=== PATIENT | male | born 1945 | race Caucasian/White ===

== ENCOUNTER 2019-10-03 03:31 | Emergency (ER) | payer BC ==
[~2019-10-03] VITALS: Ht 185.4 cm; Wt 95.0 kg
[2019-10-03 03:38] VITALS: BP 161/87
[2019-10-03] MEDS ORDERED: ondansetron 4mg rapidly disintigrating tab PO ONE (04:00)
[2019-10-03] MEDS ORDERED: morphine 4 MG/ML inj SYRINge IM ONE (04:00)
== END 2019-10-03 04:15 | disposition home or self-care (01) ==
LOC: ER 03:32
DX: M54.5 Low back pain (principal); G89.29 Other chronic pain; Z98.890 Other specified postprocedural states
CPT/HCPCS: 96372; 99283; J2270

== ENCOUNTER 2021-04-07 14:47 | Inpatient (IN) | payer BC ==
[~2021-04-07] VITALS: Ht 185.4 cm; Wt 100.8 kg
--- NOTE | 2021-04-07 16:00 | NUR ---
Pt reports "taking a few extra Baclofen" on Thursday. Concerned b/c his urine is dark. Discussed several methods to reduce "accidentally" taking more meds than prescribed.
[2021-04-07 16:57] LABS: BASOPHILS % (AUTO) 0.2 % (0-1); EOSINOPHILS % (AUTO) 0.3 % (0-6); HEMATOCRIT 40.4 % (42.0-52.0); LYMPHOCYTES % (AUTO) 10.2 % (21-51); MEAN CORPUSCULAR HGB CONC 34.5 g/dL (33.0-36.5); MEAN CORPUSCULAR VOLUME 89.9 FL (78-98); MEAN PLATELET VOLUME 7.9 FL (7.4-10.4); MONOCYTES # (AUTO) 0.2 X10'3 (0-0.9); MONOCYTES % (AUTO) 2.5 % (2-12); NEUTROPHILS # (AUTO) 8.3 X10'3 (1.8-7.7); NEUTROPHILS % (AUTO) 86.8 % (42-75); PLATELET COUNT 125 X10'3 (140-440); RED CELL DISTRIBUTION WIDTH 15.3 % (11.5-14.5); WHITE BLOOD COUNT 9.5 X10'3 (4.5-11.0)
[2021-04-07 17:08] LABS: ALANINE AMINOTRANSFERASE 296 U/L (12-78); ALBUMIN 3.6 G/DL (3.4-5.0); ALKALINE PHOSPHATASE 46 IU/L (46-116); ANION GAP 11 (8-16); ASPARTATE AMINO TRANSFERASE 239 U/L (10-37); BILIRUBIN,TOTAL 9.9 MG/DL (0.1-1.0); BLOOD UREA NITROGEN 28 MG/DL (7-18); BUN/CREATININE RATIO 16.9 (5.4-32.0); CALCIUM 8.9 MG/DL (8.5-10.1); CHLORIDE 97 MMOL/L (99-107); CREATININE 1.66 MG/DL (0.60-1.10); GLUCOSE 123 MG/DL (70-104); SODIUM 137 MMOL/L (135-145); TOTAL CARBON DIOXIDE 28.7 MMOL/L (24-32); eGFR 40 ML/MIN
[2021-04-07 17:09] LABS: ALBUMIN/GLOBULIN RATIO 0.9 (1.1-1.5); POTASSIUM 3.2 MMOL/L (3.5-5.1); TOTAL PROTEIN 7.4 G/DL (6.4-8.2)
[2021-04-07] MEDS ORDERED: normal saline 1000ML IV soln IVB ONE (17:20)
[2021-04-07] MEDS ORDERED: potassium Cl 20 mEq SR tablet PO ONE (17:20)
[2021-04-07 17:22] LABS: ANISOCYTOSIS FEW; PLATELET ESTIMATE DECREASED; TOTAL CELLS COUNTED 100
[2021-04-07 17:23] LABS: TOXIC VACUOLATION 2+
[2021-04-07] MEDS ORDERED: tamsulosin 0.4mg capsule PO ONE (17:50)
[2021-04-07] MEDS: tamsulosin 0.4mg capsule PO SCH ×2 (17:52→17:53)
[2021-04-07] MEDS ORDERED: ondansetron/PF 4mg/2ml inj IV ONE (19:10)
[2021-04-07] MEDS ORDERED: morphine 4 MG/ML inj SYRINge IV ONE (19:10)
--- NOTE | 2021-04-07 20:27 | NUR ---
pt to room, assumed care
[2021-04-07] MEDS ORDERED: piperacillin/tazo 3.375gm/50ml 50 ML IV ONE (20:30)
[2021-04-07] MEDS ORDERED: AMLO-363 PO (20:36)
[2021-04-07] MEDS ORDERED: DULO-31 PO (20:36)
[2021-04-07] MEDS ORDERED: OLOP5DRO14 LEFTEYE (20:36)
[2021-04-07] MEDS ORDERED: OLOP5DRO14 RIGHTEYE (20:36)
[2021-04-07] MEDS ORDERED: APIX5TAB3 PO (20:36)
[2021-04-07] MEDS ORDERED: FOLI0.4T6 PO (20:36)
[2021-04-07] MEDS ORDERED: TEST75GE TOP (20:36)
[2021-04-07] MEDS ORDERED: FENT1PAT10 TD (20:36)
[2021-04-07] MEDS ORDERED: FLO0.4C PO (20:36)
[2021-04-07] MEDS ORDERED: OMEG1CAP PO (20:36)
[2021-04-07] MEDS ORDERED: FENO145T26 PO (20:36)
[2021-04-07] MEDS ORDERED: CHOL50004 PO (20:36)
[2021-04-07] MEDS ORDERED: CALC200T PO (20:36)
[2021-04-07] MEDS ORDERED: ADAL40PE SUBCUT (20:36)
[2021-04-07] MEDS ORDERED: OMEP40CA21 PO (20:36)
[2021-04-07] MEDS ORDERED: MULT-1085 PO (20:36)
[2021-04-07] MEDS ORDERED: DOXE150C2 PO (20:36)
[2021-04-07] MEDS ORDERED: METH2.5T PO (20:36)
[2021-04-07] MEDS ORDERED: ASCO-139 PO (20:36)
[2021-04-07] MEDS ORDERED: BACL20TA PO (20:36)
[2021-04-07] MEDS ORDERED: potassium Cl 40MEQ/1/2NS 520ml 520 ML IV PRN ×2 (22:25)
[2021-04-07] MEDS ORDERED: morphine/NS 1 mg/ml 50ml CADD 50 ML IV SCH (22:25)
[2021-04-07] MEDS ORDERED: CADD PCA waste documentation MC PRN (22:25)
[2021-04-07] MEDS ORDERED: naloxone 0.4 mg/ml inj IV PRN (22:25)
[2021-04-07] MEDS ORDERED: potassium Cl 20 mEq SR tablet PO PRN (22:25)
[2021-04-07] MEDS ORDERED: ondansetron/PF 4mg/2ml inj IV PRN (22:25)
[2021-04-07] MEDS: normal saline 1000ml 1,000 ML IV SCH (22:27)
--- NOTE | 2021-04-07 22:39 | NUR ---
per ERP verbal order for bladder scan. 472cc. ERP aware
[2021-04-07] MEDS ORDERED: zolpidem 5mg tablet PO ONE (22:50)
--- NOTE | 2021-04-07 23:23 | NUR ---
pt on hospital bed
[2021-04-07 23:26] LABS: LIPASE < 50 U/L (73-393)
[2021-04-08] VITALS (14 sets, daily range): BP systolic 83–141; BP diastolic 58–84
[2021-04-08] MEDS: piperacillin/tazo 3.375gm/50ml 50 ML IV SCH ×3 (04:00→21:30)
[2021-04-08 04:27] LABS: CLARITY,URINE CLEAR (Clear); COLOR,URINE YELLOW (Yellow); GLUCOSE, URINE NEGATIVE (Neg); KETONES,URINE TRACE mg/dl (Neg); LEUKOCYTE ESTERASE ,URINE NEGATIVE (Neg); NITRITES, URINE NEGATIVE (Neg); OCCULT BLOOD,URINE MODERATE (Neg); PROTEIN,URINE TRACE mg/dl (Neg)
[2021-04-08 04:35] LABS: UA COLLECTION TYPE CLN CATCH MIDSTREAM
[2021-04-08 04:36] LABS: BACTERIA,URINE FEW /HPF (Neg); RBC,URINE 0-2 /HPF (0-2); SQUAMOUS EPITHELIAL CELL,UR FEW /LPF (FEW); WBC,URINE 0-4 /HPF (0-4)
[2021-04-08] MEDS: K and/or MAG REPLACEMENT MC SCH ×2 (08:00→20:00)
[2021-04-08] MEDS ORDERED: OLOPATADINE HCL RIGHTEYE SCH (08:00)
[2021-04-08] MEDS: OLOPATADINE HCL EACHEYE SCH ×2 (08:00→20:00)
[2021-04-08 08:27] LABS: BASOPHILS % (AUTO) 0.4 % (0-1); EOSINOPHILS # (AUTO) 0.1 X10'3 (0-0.9); EOSINOPHILS % (AUTO) 0.7 % (0-6); HEMATOCRIT 36.2 % (42.0-52.0); HEMOGLOBIN 12.5 g/dl (14.0-17.9); LYMPHOCYTES % (AUTO) 13.5 % (21-51); MEAN CORPUSCULAR HEMOGLOBIN 30.7 PG (27.0-31.0); MEAN CORPUSCULAR HGB CONC 34.4 g/dL (33.0-36.5); MEAN CORPUSCULAR VOLUME 89.5 FL (78-98); MEAN PLATELET VOLUME 7.9 FL (7.4-10.4); MONOCYTES # (AUTO) 0.5 X10'3 (0-0.9); MONOCYTES % (AUTO) 7.1 % (2-12); NEUTROPHILS # (AUTO) 6.1 X10'3 (1.8-7.7); NEUTROPHILS % (AUTO) 78.3 % (42-75); PLATELET COUNT 107 X10'3 (140-440); RED BLOOD COUNT 4.05 X10'6 (4.70-6.10); RED CELL DISTRIBUTION WIDTH 15.8 % (11.5-14.5); WHITE BLOOD COUNT 7.8 X10'3 (4.5-11.0)
[2021-04-08 09:03] LABS: ALANINE AMINOTRANSFERASE 207 U/L (12-78); ALBUMIN 2.7 G/DL (3.4-5.0); ALKALINE PHOSPHATASE 39 IU/L (46-116); ANION GAP 7 (8-16); ASPARTATE AMINO TRANSFERASE 125 U/L (10-37); BILIRUBIN,TOTAL 9.1 MG/DL (0.1-1.0); BLOOD UREA NITROGEN 27 MG/DL (7-18); BUN/CREATININE RATIO 21.6 (5.4-32.0); CALCIUM 8.2 MG/DL (8.5-10.1); CHLORIDE 105 MMOL/L (99-107); CREATININE 1.25 MG/DL (0.60-1.10); GLUCOSE 111 MG/DL (70-104); SODIUM 139 MMOL/L (135-145); eGFR 56 ML/MIN
[2021-04-08] MEDS: duloxetine 30mg CAPSULE.DR PO SCH (09:20)
[2021-04-08] MEDS: fentaNYL 50MCG/HOUR patch.TD72 TD SCH (09:21)
[2021-04-08] MEDS: baclofen 10mg tablet PO SCH ×3 (09:21→20:28)
[2021-04-08] MEDS: pantoprazole 40 MG vial IV SCH (09:21)
[2021-04-08] MEDS: normal saline 1000ml 1,000 ML IV SCH ×2 (09:22→20:26)
[2021-04-08 09:25] LABS: POTASSIUM 3.6 MMOL/L (3.5-5.1); TOTAL PROTEIN 6.2 G/DL (6.4-8.2)
[2021-04-08 09:26] LABS: ALBUMIN/GLOBULIN RATIO 0.8 (1.1-1.5)
--- NOTE | 2021-04-08 10:15 | NUR ---
received report from jamel hart in er
[2021-04-08] MEDS ORDERED: MIDAZolam 1 MG/ML 5ML VIAL ONE (11:58)
[2021-04-08] MEDS ORDERED: fentaNYL/PF 50MCG/1 ML 2ML syringe ONE (11:58)
[2021-04-08] MEDS ORDERED: iohexol 300 MG/1 ML 50ml polymer ONE (11:59)
[2021-04-08] MEDS ORDERED: levoFLOXACIN-Levaquin 500mg/D5 100 ML IV ONE (11:59)
[2021-04-08] MEDS ORDERED: LIDOcaine Viscous 15ml cup ONE (11:59)
[2021-04-08] MEDS ORDERED: glucagon, human recombinant 1mg kit ONE (11:59)
[2021-04-08] MEDS ORDERED: diphenhydrAMINE 50 mg/ml inj ONE (12:01)
--- NOTE | 2021-04-08 12:19 | NUR ---
pt down at GI lab
--- NOTE | 2021-04-08 15:44 | NUR ---
about 40 mins ago pharmacist called to notify me that pt cannot have a cadd and a fentanyl patch b/c he will OD on medications, pt went down to surgery before pharmacy was able to deliver the medicine for the CADD, I had sent a page to hospitalist asking if he would like the patch or CADD, no new orders at this time, continue to monitor pt
--- NOTE | 2021-04-08 18:30 | NUR ---
Patient in room ORTHO 4015. I have received report from RADHA COY and had the opportunity to ask questions and assume patient care.
--- NOTE | 2021-04-08 18:31 | NUR ---
gave report to jamel fowler
[2021-04-08] MEDS: lactobacillus rhamnosus 10,000 MMU CELLS/CAPSULE PO SCH (20:28)
[2021-04-08] MEDS: apixaban 5mg tablet PO SCH (20:28)
[2021-04-08] MEDS: doxepin 25mg capsule PO SCH (20:28)
[2021-04-08] MEDS: tamsulosin 0.4mg capsule PO SCH (20:28)
[2021-04-08] MEDS: oxyCODONE IR 5mg (immed. release) tablet PO PRN (20:29)
[2021-04-09 02:07] VITALS: BP 112/70
[2021-04-09] MEDS: normal saline 1000ml 1,000 ML IV SCH ×3 (02:33→21:39)
[2021-04-09] MEDS: piperacillin/tazo 3.375gm/50ml 50 ML IV SCH ×3 (05:24→21:24)
[2021-04-09 06:00] VITALS: BP 137/74
[2021-04-09 06:20] LABS: BASOPHILS % (AUTO) 0.6 % (0-1); EOSINOPHILS # (AUTO) 0.1 X10'3 (0-0.9); HEMATOCRIT 35.3 % (42.0-52.0); LYMPHOCYTES # (AUTO) 1.1 X10'3 (1.1-4.8); LYMPHOCYTES % (AUTO) 21.5 % (21-51); MEAN CORPUSCULAR HEMOGLOBIN 30.1 PG (27.0-31.0); MEAN CORPUSCULAR HGB CONC 33.9 g/dL (33.0-36.5); MEAN CORPUSCULAR VOLUME 88.7 FL (78-98); MEAN PLATELET VOLUME 8.5 FL (7.4-10.4); MONOCYTES # (AUTO) 0.5 X10'3 (0-0.9); MONOCYTES % (AUTO) 9.3 % (2-12); NEUTROPHILS # (AUTO) 3.5 X10'3 (1.8-7.7); NEUTROPHILS % (AUTO) 66.6 % (42-75); PLATELET COUNT 115 X10'3 (140-440); RED BLOOD COUNT 3.98 X10'6 (4.70-6.10); RED CELL DISTRIBUTION WIDTH 15.4 % (11.5-14.5); WHITE BLOOD COUNT 5.3 X10'3 (4.5-11.0)
--- NOTE | 2021-04-09 06:29 | NUR ---
Problems reprioritized. Patient report given, questions answered & plan of care reviewed with RADHA SAXENA.
[2021-04-09 06:43] LABS: ALANINE AMINOTRANSFERASE 183 U/L (12-78); ALBUMIN 2.4 G/DL (3.4-5.0); ALKALINE PHOSPHATASE 53 IU/L (46-116); ANION GAP 8 (8-16); ASPARTATE AMINO TRANSFERASE 113 U/L (10-37); BILIRUBIN,TOTAL 8.3 MG/DL (0.1-1.0); BLOOD UREA NITROGEN 20 MG/DL (7-18); BUN/CREATININE RATIO 18.2 (5.4-32.0); CHLORIDE 105 MMOL/L (99-107); GLUCOSE 95 MG/DL (70-104); POTASSIUM 3.3 MMOL/L (3.5-5.1); SODIUM 140 MMOL/L (135-145); TOTAL CARBON DIOXIDE 26.9 MMOL/L (24-32); eGFR 65 ML/MIN
--- NOTE | 2021-04-09 06:45 | NUR ---
Patient in room ORTHO 4015. I have received report from Maricel GARCIA and had the opportunity to ask questions and assume patient care.
[2021-04-09 06:47] LABS: ALBUMIN/GLOBULIN RATIO 0.7 (1.1-1.5)
[2021-04-09] MEDS: baclofen 10mg tablet PO SCH ×3 (07:39→21:28)
[2021-04-09] MEDS: duloxetine 30mg CAPSULE.DR PO SCH (07:39)
[2021-04-09] MEDS: apixaban 5mg tablet PO SCH ×2 (07:39→21:27)
[2021-04-09] MEDS: lactobacillus rhamnosus 10,000 MMU CELLS/CAPSULE PO SCH ×2 (07:39→21:27)
[2021-04-09] MEDS: oxyCODONE IR 5mg (immed. release) tablet PO PRN ×3 (07:41→21:37)
[2021-04-09] MEDS: pantoprazole 40 MG vial IV SCH (07:41)
[2021-04-09] MEDS: OLOPATADINE HCL EACHEYE SCH ×2 (08:00→20:00)
[2021-04-09] MEDS: K and/or MAG REPLACEMENT MC SCH ×2 (08:00→20:00)
[2021-04-09 10:00] VITALS: BP 148/85
[2021-04-09] MEDS: potassium Cl 20 mEq SR tablet PO PRN ×3 (12:57→21:37)
--- NOTE | 2021-04-09 18:51 | NUR ---
Problems reprioritized. Patient report given, questions answered & plan of care reviewed with Jacqueline GARCIA.
--- NOTE | 2021-04-09 18:52 | NUR ---
Patient in room ORTHO 4015. I have received report from ODESSA GARCIA and had the opportunity to ask questions and assume patient care.
[2021-04-09 20:00] VITALS: BP 156/94
[2021-04-09] MEDS: tamsulosin 0.4mg capsule PO SCH (21:27)
[2021-04-09] MEDS: doxepin 25mg capsule PO SCH (21:28)
[2021-04-10] VITALS: BP 149/70
[2021-04-10] MEDS: oxyCODONE IR 5mg (immed. release) tablet PO PRN ×3 (03:32→12:08)
[2021-04-10] MEDS ORDERED: zolpidem 5mg tablet PO PRN ×2 (04:25→04:55)
[2021-04-10] MEDS: piperacillin/tazo 3.375gm/50ml 50 ML IV SCH ×2 (04:37→12:08)
[2021-04-10] MEDS: normal saline 1000ml 1,000 ML IV SCH (05:41)
[2021-04-10 06:00] VITALS: BP 142/76
--- NOTE | 2021-04-10 06:15 | NUR ---
Problems reprioritized. Patient report given, questions answered & plan of care reviewed with TABITHA GARCIA.
--- NOTE | 2021-04-10 06:17 | NUR ---
Patient in room ORTHO 4015. I have received report from SYLVIE MERCER RN and had the opportunity to ask questions and assume patient care.
[2021-04-10 06:40] LABS: BASOPHILS % (AUTO) 0.4 % (0-1); EOSINOPHILS # (AUTO) 0.1 X10'3 (0-0.9); EOSINOPHILS % (AUTO) 1.1 % (0-6); HEMATOCRIT 34.5 % (42.0-52.0); HEMOGLOBIN 11.7 g/dl (14.0-17.9); LYMPHOCYTES # (AUTO) 1.4 X10'3 (1.1-4.8); LYMPHOCYTES % (AUTO) 22.3 % (21-51); MEAN CORPUSCULAR HEMOGLOBIN 30.2 PG (27.0-31.0); MEAN CORPUSCULAR HGB CONC 33.8 g/dL (33.0-36.5); MEAN CORPUSCULAR VOLUME 89.5 FL (78-98); MEAN PLATELET VOLUME 8.2 FL (7.4-10.4); MONOCYTES # (AUTO) 0.7 X10'3 (0-0.9); MONOCYTES % (AUTO) 11.3 % (2-12); NEUTROPHILS # (AUTO) 4.2 X10'3 (1.8-7.7); NEUTROPHILS % (AUTO) 64.9 % (42-75); PLATELET COUNT 153 X10'3 (140-440); RED BLOOD COUNT 3.86 X10'6 (4.70-6.10); RED CELL DISTRIBUTION WIDTH 15.7 % (11.5-14.5); WHITE BLOOD COUNT 6.5 X10'3 (4.5-11.0)
[2021-04-10 07:04] LABS: ALANINE AMINOTRANSFERASE 146 U/L (12-78); ALBUMIN 2.5 G/DL (3.4-5.0); ALKALINE PHOSPHATASE 65 IU/L (46-116); ANION GAP 10 (8-16); ASPARTATE AMINO TRANSFERASE 78 U/L (10-37); BILIRUBIN,TOTAL 6.2 MG/DL (0.1-1.0); BLOOD UREA NITROGEN 15 MG/DL (7-18); CALCIUM 8.3 MG/DL (8.5-10.1); CHLORIDE 105 MMOL/L (99-107); CREATININE 1.07 MG/DL (0.60-1.10); GLUCOSE 97 MG/DL (70-104); POTASSIUM 3.2 MMOL/L (3.5-5.1); SODIUM 140 MMOL/L (135-145); eGFR 67 ML/MIN
[2021-04-10 07:11] LABS: ALBUMIN/GLOBULIN RATIO 0.7 (1.1-1.5); TOTAL PROTEIN 6.2 G/DL (6.4-8.2)
[2021-04-10] MEDS: fentaNYL 50MCG/HOUR patch.TD72 TD SCH (07:17)
[2021-04-10] MEDS: lactobacillus rhamnosus 10,000 MMU CELLS/CAPSULE PO SCH (07:17)
[2021-04-10] MEDS: duloxetine 30mg CAPSULE.DR PO SCH (07:19)
[2021-04-10] MEDS: baclofen 10mg tablet PO SCH ×2 (07:19→12:07)
[2021-04-10] MEDS: apixaban 5mg tablet PO SCH (07:19)
[2021-04-10] MEDS: OLOPATADINE HCL EACHEYE SCH ×2 (07:20→08:00)
[2021-04-10] MEDS ORDERED: pantoprazole 40mg Tablet.DR PO SCH (07:30)
[2021-04-10] MEDS: potassium Cl 20 mEq SR tablet PO PRN (08:24)
[2021-04-10] MEDS: K and/or MAG REPLACEMENT MC SCH (08:25)
[2021-04-10 10:00] VITALS: BP 146/88
--- NOTE | 2021-04-10 12:20 | NUR ---
Pt stated he will wait to take eye drops until he is home. Does not want to send eye drops to pharmacy.
[2021-04-10] MEDS ORDERED: AMOX-580 PO (14:08)
[2021-04-10] MEDS ORDERED: POTA20TA10 PO (14:08)
--- NOTE | 2021-04-10 15:29 | NUR ---
Pt discharged [facility] at 1515. Pt belongings sent with pt. Iv removed, no complications. All questions reviewed/answered. Pt discharged in stable condition with in private vehicle.
== END 2021-04-10 15:15 | disposition home or self-care (01) | DRG 444 ==
LOC: ER 14:47 → ED HOLD 22:21 → ORTHO 4S 04-08 10:25
PROVIDERS: ADMIT Internal Medicine; ATTEND Internal Medicine
PROC: 0FC98ZZ Extirpation of Matter from Common Bile Duct, Via Natural or Artificial Opening Endoscopic (ICD-10-PCS; principal; 2021-04-08)
PROC: 0F798DZ Dilation of Common Bile Duct with Intraluminal Device, Via Natural or Artificial Opening Endoscopic (ICD-10-PCS; 2021-04-08)
PROC: BF101ZZ Fluoroscopy of Bile Ducts using Low Osmolar Contrast (ICD-10-PCS; 2021-04-08)
DX: K80.30 Calculus of bile duct with cholangitis, unspecified, without obstruction (principal); N17.0 Acute kidney failure with tubular necrosis; I48.20 Chronic atrial fibrillation, unspecified; D72.825 Bandemia; E86.0 Dehydration; I10 Essential (primary) hypertension; E87.6 Hypokalemia; K75.9 Inflammatory liver disease, unspecified; R74.01 Elevation of levels of liver transaminase levels; K83.8 Other specified diseases of biliary tract; R74.8 Abnormal levels of other serum enzymes; R93.2 Abnormal findings on diagnostic imaging of liver and biliary tract; G89.29 Other chronic pain; R79.89 Other specified abnormal findings of blood chemistry; M54.9 Dorsalgia, unspecified; L40.50 Arthropathic psoriasis, unspecified; M47.896 Other spondylosis, lumbar region; Z79.01 Long term (current) use of anticoagulants; Z79.899 Other long term (current) drug therapy; Z90.49 Acquired absence of other specified parts of digestive tract
CPT/HCPCS: 36415; 43262; 43264; 43274; 74176; 76700; 80053; 81001; 83690; 85007; 85025; 87081; 99152; 99153; 99285; A4620; C1769; C9113; G0378; J1200; J1610; J1956; J2250; J2270; J2405; J2543; J3010; J7030; J7040; Q9967

== ENCOUNTER 2021-05-20 10:55 | Day surgery (SDC) | payer BC ==
[2021-05-20] VITALS (7 sets, daily range): BP systolic 126–155; BP diastolic 66–82
[~2021-05-20] VITALS: Ht 185.4 cm; Wt 97.7 kg
[~2021-05-20 10:55] MED LIST: ADAL40PE SUBCUT; AMLO-363 PO; AMOX-580 PO; APIX5TAB3 PO; ASCO-139 PO; BACL20TA PO; CALC200T PO; CHOL50004 PO; DOXE150C2 PO; DULO-31 PO; FENO145T26 PO; FENT1PAT10 TD; FLO0.4C PO; FOLI0.4T6 PO; METH2.5T PO; MULT-1085 PO; OLOP5DRO14 LEFTEYE; OLOP5DRO14 RIGHTEYE; OMEG1CAP61 PO; OMEP40CA21 PO; POTA20TA10 PO
[2021-05-20] MEDS ORDERED: fentaNYL/PF 50MCG/1 ML 2ML syringe ONE (10:59)
[2021-05-20] MEDS ORDERED: MIDAZolam 1 MG/ML 5ML VIAL ONE (10:59)
[2021-05-20] MEDS ORDERED: levoFLOXACIN-Levaquin 500mg/D5 100 ML IV ONE (11:00)
[2021-05-20] MEDS ORDERED: iohexol 300 MG/1 ML 50ml polymer ONE (11:00)
[2021-05-20] MEDS ORDERED: LIDOcaine Viscous 15ml cup ONE (11:00)
[2021-05-20] MEDS ORDERED: glucagon, human recombinant 1mg kit ONE (11:00)
[2021-05-20] MEDS ORDERED: diphenhydrAMINE 50 mg/ml inj ONE ×2 (11:00→11:27)
== END 2021-05-20 13:00 | disposition home or self-care (01) ==
LOC: GI LAB 10:55
PROVIDERS: ATTEND Internal Medicine Gastroenterology
DX: Z46.59 Encounter for fitting and adjustment of other gastrointestinal appliance and device (principal); K83.8 Other specified diseases of biliary tract; I10 Essential (primary) hypertension; Z87.891 Personal history of nicotine dependence; Z79.01 Long term (current) use of anticoagulants; Z79.899 Other long term (current) drug therapy
CPT/HCPCS: 43264; 43275; 74328; 99152; C1769; C1773; J1200; J1610; J1956; J2250; J3010; J7040; Q9967; Z7512; Z7610; 43276

== ENCOUNTER 2021-06-03 20:00 | Inpatient (IN) | payer BC ==
[~2021-06-03] VITALS: Ht 185.4 cm; Wt 97.7 kg
[~2021-06-03 20:00] MED LIST changes: +POTA-197 PO; -POTA20TA10 PO
[2021-06-03 20:51] LABS: BASOPHILS # (AUTO) 0.1 X10'3 (0-0.2); BASOPHILS % (AUTO) 0.6 % (0-1); EOSINOPHILS % (AUTO) 0.1 % (0-6); HEMOGLOBIN 10.3 g/dl (14.0-17.9); LYMPHOCYTES # (AUTO) 0.8 X10'3 (1.1-4.8); LYMPHOCYTES % (AUTO) 3.7 % (21-51); MEAN CORPUSCULAR HEMOGLOBIN 28.4 PG (27.0-31.0); MEAN CORPUSCULAR HGB CONC 32.3 g/dL (33.0-36.5); MEAN CORPUSCULAR VOLUME 88.1 FL (78-98); MEAN PLATELET VOLUME 7.6 FL (7.4-10.4); MONOCYTES # (AUTO) 1.6 X10'3 (0-0.9); MONOCYTES % (AUTO) 7.2 % (2-12); NEUTROPHILS # (AUTO) 19.2 X10'3 (1.8-7.7); NEUTROPHILS % (AUTO) 88.4 % (42-75); PLATELET COUNT 298 X10'3 (140-440); RED BLOOD COUNT 3.64 X10'6 (4.70-6.10); WHITE BLOOD COUNT 21.7 X10'3 (4.5-11.0)
[2021-06-03 21:08] LABS: ALANINE AMINOTRANSFERASE 33 U/L (12-78); ALBUMIN 2.6 G/DL (3.4-5.0); ALBUMIN/GLOBULIN RATIO 0.6 (1.1-1.5); ALKALINE PHOSPHATASE 64 IU/L (46-116); ANION GAP 13 (8-16); ASPARTATE AMINO TRANSFERASE 31 U/L (10-37); BILIRUBIN,TOTAL 1.6 MG/DL (0.1-1.0); BLOOD UREA NITROGEN 26 MG/DL (7-18); BUN/CREATININE RATIO 10.3 (5.4-32.0); CALCIUM 8.8 MG/DL (8.5-10.1); CHLORIDE 101 MMOL/L (99-107); CREATININE 2.53 MG/DL (0.60-1.10); GLUCOSE 199 MG/DL (70-104); POTASSIUM 3.6 MMOL/L (3.5-5.1); SODIUM 138 MMOL/L (135-145); TOTAL CARBON DIOXIDE 24.3 MMOL/L (24-32); TOTAL PROTEIN 6.8 G/DL (6.4-8.2); eGFR 25 ML/MIN
--- NOTE | 2021-06-03 21:30 | NUR ---
significant drop in blood pressure noted. Pt continues to be tachypnic and diaphoretic. MD notified. 1 L ns bolus ordered as well as cultures and lactic.
[2021-06-03 21:31] LABS: BANDS% (MANUAL) 16 % (0-10); NEUTROPHILS % (MANUAL) 68 % (42-75); TOTAL CELLS COUNTED 100
[2021-06-03 21:32] LABS: LYMPHOCYTES % (MANUAL) 3 % (21-51); METAMYLEOCYTES% (MANUAL) 9 % (0-0); MONOCYTES % (MANUAL) 4 % (2-12); PLATELET ESTIMATE NORMAL
[2021-06-03] MEDS ORDERED: metroNIDAZOLE-Flagyl 500mg/NS 100 ML IV STA (22:03)
[2021-06-03] MEDS ORDERED: levoFLOXACIN-Levaquin 750MG/D5 150 ML IV SCH (22:08)
[2021-06-04] MEDS ORDERED: acetaminophen 325mg tablet PO STA (00:12)
[2021-06-04] MEDS ORDERED: normal saline 1000ML IV soln IV ONE (00:15)
[2021-06-04] MEDS ORDERED: tamsulosin 0.4mg capsule PO ONE ×2 (01:55→02:20)
[2021-06-04] MEDS ORDERED: CHOL20002 PO (03:07)
[2021-06-04] MEDS ORDERED: HYDROcodone/acetaminophen 5mg/325mg tablet PO PRN (04:10)
[2021-06-04] MEDS ORDERED: magnesium 2GM in 50ml NS 50 ML IV PRN (04:10)
[2021-06-04] MEDS ORDERED: potassium Cl 20 mEq SR tablet PO PRN ×2 (04:10)
[2021-06-04] MEDS ORDERED: potassium Cl 40MEQ/1/2NS 520ml 520 ML IV PRN ×2 (04:10)
[2021-06-04] MEDS ORDERED: magnesium Cl slow-release 64mg tablet PO PRN (04:10)
[2021-06-04] MEDS ORDERED: ondansetron/PF 4mg/2ml inj IV PRN (04:10)
[2021-06-04] MEDS ORDERED: HYDROcodone/acetaminophen 10/325mg tab PO PRN (04:10)
[2021-06-04] MEDS ORDERED: magnesium 4gm in 100ml NS 100 ML IV PRN (04:10)
[2021-06-04] MEDS ORDERED: acetaminophen 325mg tablet PO PRN ×2 (04:10)
[2021-06-04] MEDS ORDERED: morphine 2 MG/ML inj. syringe IV PRN ×2 (04:10)
--- NOTE | 2021-06-04 05:38 | NUR ---
Patient in room . I have received report from Letitia-ENVIRONMENTAL LEAD and had the opportunity to ask questions and assume patient care.
[2021-06-04 06:00] VITALS: BP 106/64
--- NOTE | 2021-06-04 06:10 | NUR ---
Pt arrived on unit was able to ambulatw to bed, BP 106/64, 96% 2LNC, 91, 21. Pt asked for water connected to tele box 15
--- NOTE | 2021-06-04 06:51 | NUR ---
Problems reprioritized. Patient report given, questions answered & plan of care reviewed with Charline-RADHA.
--- NOTE | 2021-06-04 07:36 | NUR ---
Patient in room PCU 3023. I have received report from Estefania GARCIA and had the opportunity to ask questions and assume patient care.
[2021-06-04 07:37] VITALS: BP 103/60
[2021-06-04] MEDS: K and/or MAG REPLACEMENT MC SCH ×2 (08:00→20:00)
[2021-06-04] MEDS ORDERED: heparin, porcine 5000 units/ml vial SQ SCH (08:00)
[2021-06-04] MEDS: normal saline 1000ml 1,000 ML IV SCH ×3 (09:06→16:17)
[2021-06-04] MEDS: metroNIDAZOLE-Flagyl 500mg/NS 100 ML IV SCH ×2 (09:06→16:16)
[2021-06-04 09:19] LABS: BASOPHILS % (AUTO) 0.1 % (0-1); EOSINOPHILS % (AUTO) 0.2 % (0-6); HEMATOCRIT 28.7 % (42.0-52.0); HEMOGLOBIN 9.8 g/dl (14.0-17.9); LYMPHOCYTES # (AUTO) 1.3 X10'3 (1.1-4.8); LYMPHOCYTES % (AUTO) 8.3 % (21-51); MEAN CORPUSCULAR HEMOGLOBIN 29.5 PG (27.0-31.0); MEAN CORPUSCULAR VOLUME 86.8 FL (78-98); MEAN PLATELET VOLUME 7.5 FL (7.4-10.4); MONOCYTES # (AUTO) 1.2 X10'3 (0-0.9); MONOCYTES % (AUTO) 7.5 % (2-12); NEUTROPHILS # (AUTO) 13.1 X10'3 (1.8-7.7); NEUTROPHILS % (AUTO) 83.9 % (42-75); PLATELET COUNT 269 X10'3 (140-440); RED BLOOD COUNT 3.31 X10'6 (4.70-6.10); RED CELL DISTRIBUTION WIDTH 15.9 % (11.5-14.5); WHITE BLOOD COUNT 15.6 X10'3 (4.5-11.0)
[2021-06-04 09:31] LABS: ALBUMIN 2.2 G/DL (3.4-5.0); ANION GAP 9 (8-16); BLOOD UREA NITROGEN 33 MG/DL (7-18); BUN/CREATININE RATIO 15.7 (5.4-32.0); CALCIUM 7.8 MG/DL (8.5-10.1); CHLORIDE 103 MMOL/L (99-107); GLUCOSE 108 MG/DL (70-104); POTASSIUM 4.3 MMOL/L (3.5-5.1); SODIUM 138 MMOL/L (135-145); TOTAL CARBON DIOXIDE 25.8 MMOL/L (24-32); eGFR 31 ML/MIN
[2021-06-04 11:00] VITALS: BP 128/59
[2021-06-04] MEDS: folic acid 1mg tablet PO SCH (14:07)
[2021-06-04] MEDS: fenofibrate 145mg tablet PO SCH (14:07)
[2021-06-04] MEDS: tamsulosin 0.4mg capsule PO SCH (14:07)
[2021-06-04 15:00] VITALS: BP 91/52
--- NOTE | 2021-06-04 15:31 | NUR ---
PAGER ID: [phone] MESSAGE: Patient Antonio Terry room 5492T states that Edgeley's are not effective for his chronic pain. He is requesting oxycontin as an alternative. Please advise. Charline room 5176
[2021-06-04 15:53] LABS: CLARITY,URINE CLEAR (Clear); COLOR,URINE YELLOW (Yellow); GLUCOSE, URINE NEGATIVE (Neg); KETONES,URINE NEGATIVE (Neg); LEUKOCYTE ESTERASE ,URINE NEGATIVE (Neg); NITRITES, URINE NEGATIVE (Neg); OCCULT BLOOD,URINE NEGATIVE (Neg); PH,URINE 5.5 (4.8-8.0); PROTEIN,URINE NEGATIVE (Neg); UROBILINOGEN,URINE 0.2 E.U/dL (0.2-1.0)
[2021-06-04 15:55] LABS: UA COLLECTION TYPE URINAL
[2021-06-04] MEDS: fentaNYL 50MCG/HOUR patch.TD72 TD SCH (17:06)
[2021-06-04 18:00] VITALS: BP 108/47
--- NOTE | 2021-06-04 18:53 | NUR ---
Problems reprioritized. Patient report given, questions answered & plan of care reviewed with Estefania GARCIA.
[2021-06-04] MEDS: apixaban 5mg tablet PO SCH (19:36)
[2021-06-04] MEDS: oxyCODONE SR 10mg (sust. release) tab PO SCH (19:36)
[2021-06-04] MEDS: naphazoline/pheniramine eye 1 DROP BOTTLE EACHEYE SCH (19:37)
[2021-06-04] MEDS ORDERED: OLOPATADINE HCL LEFTEYE SCH (20:00)
[2021-06-04] MEDS ORDERED: temazepam 15mg capsule PO PRN (21:00)
[2021-06-04] MEDS ORDERED: tamsulosin 0.4mg capsule PO SCH (21:00)
[2021-06-04] MEDS: baclofen 10mg tablet PO SCH (21:36)
[2021-06-04] MEDS: levoFLOXACIN-Levaquin 250mg/D5 100 ML IV SCH (21:37)
[2021-06-04] MEDS: doxepin 25mg capsule PO SCH (21:37)
[2021-06-04 22:00] VITALS: BP 101/43
[2021-06-05] MEDS: metroNIDAZOLE-Flagyl 500mg/NS 100 ML IV SCH ×3 (00:12→16:59)
[2021-06-05] MEDS: normal saline 1000ml 1,000 ML IV SCH ×4 (00:17→22:35)
--- NOTE | 2021-06-05 00:48 | NUR ---
PAGER ID: [phone] MESSAGE: Robert Antonio Terry, room [facility]. Dx: ARF, Sepsis HX: afib, renal failure NKA Blood Culture gram positive cocci in clusters Rosalia COUCH 5441 Addendum: 06/05/21 at 0054 by Rosalia Vergara RN Dr denys mcclain
[2021-06-05] MEDS: vancomycin/NS 1 GM ADD-VANTAGE 250 ML IV SCH ×2 (01:50→03:02)
[2021-06-05 02:00] VITALS: BP 109/64
[2021-06-05 06:00] VITALS: BP 109/55
[2021-06-05 06:12] LABS: BASOPHILS % (AUTO) 0.1 % (0-1); EOSINOPHILS % (AUTO) 0.1 % (0-6); HEMOGLOBIN 10.9 g/dl (14.0-17.9); LYMPHOCYTES # (AUTO) 0.8 X10'3 (1.1-4.8); LYMPHOCYTES % (AUTO) 4.7 % (21-51); MEAN PLATELET VOLUME 7.7 FL (7.4-10.4); MONOCYTES # (AUTO) 0.3 X10'3 (0-0.9); MONOCYTES % (AUTO) 1.7 % (2-12); NEUTROPHILS # (AUTO) 15.6 X10'3 (1.8-7.7); NEUTROPHILS % (AUTO) 93.4 % (42-75); PLATELET COUNT 278 X10'3 (140-440); RED BLOOD COUNT 3.75 X10'6 (4.70-6.10); RED CELL DISTRIBUTION WIDTH 16.1 % (11.5-14.5); WHITE BLOOD COUNT 16.7 X10'3 (4.5-11.0)
--- NOTE | 2021-06-05 06:26 | NUR ---
Problems reprioritized. Patient report given, questions answered & plan of care reviewed with RADHA Spencer.
[2021-06-05 06:29] LABS: ALANINE AMINOTRANSFERASE 31 U/L (12-78); ALBUMIN 2.1 G/DL (3.4-5.0); ALBUMIN/GLOBULIN RATIO 0.5 (1.1-1.5); ALKALINE PHOSPHATASE 84 IU/L (46-116); ANION GAP 11 (8-16); ASPARTATE AMINO TRANSFERASE 30 U/L (10-37); BILIRUBIN,TOTAL 0.9 MG/DL (0.1-1.0); BLOOD UREA NITROGEN 34 MG/DL (7-18); BUN/CREATININE RATIO 21.4 (5.4-32.0); CALCIUM 8.3 MG/DL (8.5-10.1); CHLORIDE 102 MMOL/L (99-107); CREATININE 1.59 MG/DL (0.60-1.10); GLUCOSE 118 MG/DL (70-104); MAGNESIUM 1.6 MG/DL (1.5-2.4); POTASSIUM 4.4 MMOL/L (3.5-5.1); SODIUM 137 MMOL/L (135-145); TOTAL CARBON DIOXIDE 23.7 MMOL/L (24-32); TOTAL PROTEIN 6.3 G/DL (6.4-8.2); eGFR 42 ML/MIN
--- NOTE | 2021-06-05 06:33 | NUR ---
Patient in room PCU 3023. I have received report from Rosalia RN and Alesha RN and had the opportunity to ask questions and assume patient care.
--- NOTE | 2021-06-05 06:37 | NUR ---
[place] documentation: I have reviewed and agree with all interventions, assessments performed and documented by RADHA Lindsey.
--- NOTE | 2021-06-05 06:38 | NUR ---
[place] Medication Administration: For this medication-pass time frame, all medication were reviewed, dispensed, administered and documented per hospital policy by RADHA Lindsey.
[2021-06-05] MEDS: K and/or MAG REPLACEMENT MC SCH (08:00)
[2021-06-05] MEDS: naphazoline/pheniramine eye 1 DROP BOTTLE EACHEYE SCH (08:55)
[2021-06-05] MEDS: OMEGA-3/DHA/EPA/FISH OIL 1 EACH CAPSULE.DR PO SCH (08:55)
[2021-06-05] MEDS: cholecalciferol (vitamin D3) 1,000 unit (25mcg) tablet PO SCH (08:55)
[2021-06-05] MEDS: fenofibrate 145mg tablet PO SCH (08:55)
[2021-06-05] MEDS: calcium carbonate 500mg tablet PO SCH (08:56)
[2021-06-05] MEDS: amLODIPine 5mg tablet PO SCH (08:56)
[2021-06-05] MEDS: pantoprazole 40mg Tablet.DR PO SCH (08:57)
[2021-06-05] MEDS: duloxetine 30mg CAPSULE.DR PO SCH (08:57)
[2021-06-05] MEDS: baclofen 10mg tablet PO SCH ×3 (08:58→22:32)
[2021-06-05] MEDS: losartan 50mg tablet PO SCH (08:58)
[2021-06-05] MEDS: folic acid 1mg tablet PO SCH (08:58)
[2021-06-05] MEDS: ascorbic acid 500mg tablet PO SCH (08:59)
[2021-06-05] MEDS: HYDROchlorothiazide 25mg tablet PO SCH (08:59)
[2021-06-05] MEDS: apixaban 5mg tablet PO SCH ×2 (09:00→23:07)
[2021-06-05] MEDS: tamsulosin 0.4mg capsule PO SCH (09:00)
[2021-06-05] MEDS: oxyCODONE SR 10mg (sust. release) tab PO SCH ×2 (09:00→23:07)
[2021-06-05] MEDS: multivitamins, therapeutics tablet PO SCH (09:01)
[2021-06-05 11:00] VITALS: BP 94/45
[2021-06-05 15:00] VITALS: BP 114/74
--- NOTE | 2021-06-05 18:15 | NUR ---
Problems reprioritized. Patient report given, questions answered & plan of care reviewed with RADHA Mello.
--- NOTE | 2021-06-05 18:55 | NUR ---
Problems reprioritized. Patient report given, questions answered & plan of care reviewed with RADHA Xie.
--- NOTE | 2021-06-05 19:30 | NUR ---
Patient in room PCU 3023. I have received report from Johanna GARCIA and had the opportunity to ask questions and assume patient care.
[2021-06-05] MEDS ORDERED: oxyCODONE IR 5mg (immed. release) tablet PO PRN (22:25)
[2021-06-05] MEDS: doxepin 25mg capsule PO SCH (22:34)
[2021-06-05] MEDS: lactobacillus rhamnosus 10,000 MMU CELLS/CAPSULE PO SCH (23:07)
[2021-06-05] MEDS: levoFLOXACIN-Levaquin 250mg/D5 100 ML IV SCH (23:31)
[2021-06-06] MEDS ORDERED: vancomycin/NS 1 GM ADD-VANTAGE 250 ML X 1 DOSE IV SCH (02:00)
[2021-06-06 05:53] LABS: BASOPHILS % (AUTO) 0.2 % (0-1); EOSINOPHILS # (AUTO) 0.1 X10'3 (0-0.9); EOSINOPHILS % (AUTO) 0.5 % (0-6); HEMATOCRIT 29.7 % (42.0-52.0); HEMOGLOBIN 9.9 g/dl (14.0-17.9); LYMPHOCYTES # (AUTO) 1.3 X10'3 (1.1-4.8); LYMPHOCYTES % (AUTO) 8.2 % (21-51); MEAN CORPUSCULAR HEMOGLOBIN 28.8 PG (27.0-31.0); MEAN CORPUSCULAR HGB CONC 33.3 g/dL (33.0-36.5); MEAN CORPUSCULAR VOLUME 86.5 FL (78-98); MEAN PLATELET VOLUME 7.3 FL (7.4-10.4); MONOCYTES # (AUTO) 0.9 X10'3 (0-0.9); MONOCYTES % (AUTO) 5.6 % (2-12); NEUTROPHILS # (AUTO) 13.8 X10'3 (1.8-7.7); NEUTROPHILS % (AUTO) 85.5 % (42-75); PLATELET COUNT 281 X10'3 (140-440); RED BLOOD COUNT 3.44 X10'6 (4.70-6.10); RED CELL DISTRIBUTION WIDTH 16.3 % (11.5-14.5); WHITE BLOOD COUNT 16.1 X10'3 (4.5-11.0)
[2021-06-06 06:00] VITALS: BP 102/51
[2021-06-06] MEDS: normal saline 1000ml 1,000 ML IV SCH ×4 (06:00→22:50)
[2021-06-06 06:16] LABS: ALANINE AMINOTRANSFERASE 24 U/L (12-78); ALBUMIN 1.8 G/DL (3.4-5.0); ALBUMIN/GLOBULIN RATIO 0.5 (1.1-1.5); ALKALINE PHOSPHATASE 90 IU/L (46-116); ANION GAP 10 (8-16); ASPARTATE AMINO TRANSFERASE 23 U/L (10-37); BILIRUBIN,TOTAL 0.6 MG/DL (0.1-1.0); BLOOD UREA NITROGEN 43 MG/DL (7-18); BUN/CREATININE RATIO 24.4 (5.4-32.0); CHLORIDE 102 MMOL/L (99-107); CREATININE 1.76 MG/DL (0.60-1.10); GLUCOSE 125 MG/DL (70-104); MAGNESIUM 1.5 MG/DL (1.5-2.4); POTASSIUM 3.8 MMOL/L (3.5-5.1); SODIUM 135 MMOL/L (135-145); TOTAL CARBON DIOXIDE 23.3 MMOL/L (24-32); TOTAL PROTEIN 5.6 G/DL (6.4-8.2); eGFR 38 ML/MIN
--- NOTE | 2021-06-06 06:22 | NUR ---
Patient in room PCU 3023. I have received report from RADHA Xie and had the opportunity to ask questions and assume patient care.
--- NOTE | 2021-06-06 06:58 | NUR ---
Problems reprioritized. Patient report given, questions answered & plan of care reviewed with Johanna GARCIA.
[2021-06-06] MEDS: K and/or MAG REPLACEMENT MC SCH ×2 (07:01→20:00)
[2021-06-06] MEDS: apixaban 5mg tablet PO SCH ×2 (08:00→20:18)
[2021-06-06] MEDS: cholecalciferol (vitamin D3) 1,000 unit (25mcg) tablet PO SCH (08:02)
[2021-06-06] MEDS: ascorbic acid 500mg tablet PO SCH (08:02)
[2021-06-06] MEDS: multivitamins, therapeutics tablet PO SCH (08:02)
[2021-06-06] MEDS: amLODIPine 5mg tablet PO SCH (08:03)
[2021-06-06] MEDS: tamsulosin 0.4mg capsule PO SCH (08:04)
[2021-06-06] MEDS: pantoprazole 40mg Tablet.DR PO SCH (08:04)
[2021-06-06] MEDS: losartan 50mg tablet PO SCH (08:06)
[2021-06-06] MEDS: fenofibrate 145mg tablet PO SCH (08:06)
[2021-06-06] MEDS: oxyCODONE SR 10mg (sust. release) tab PO SCH ×2 (08:06→20:18)
[2021-06-06] MEDS: calcium carbonate 500mg tablet PO SCH (08:07)
[2021-06-06] MEDS: OMEGA-3/DHA/EPA/FISH OIL 1 EACH CAPSULE.DR PO SCH (08:08)
[2021-06-06] MEDS: folic acid 1mg tablet PO SCH (08:08)
[2021-06-06] MEDS: HYDROchlorothiazide 25mg tablet PO SCH (08:09)
[2021-06-06] MEDS: baclofen 10mg tablet PO SCH ×3 (08:09→20:18)
[2021-06-06] MEDS: duloxetine 30mg CAPSULE.DR PO SCH (08:09)
[2021-06-06] MEDS: lactobacillus rhamnosus 10,000 MMU CELLS/CAPSULE PO SCH (08:09)
[2021-06-06] MEDS: naphazoline/pheniramine eye 1 DROP BOTTLE EACHEYE SCH ×2 (08:15→20:17)
[2021-06-06] MEDS: metroNIDAZOLE-Flagyl 500mg/NS 100 ML IV SCH ×3 (08:15→23:57)
[2021-06-06] MEDS: fentaNYL 50MCG/HOUR patch.TD72 TD SCH (10:00)
[2021-06-06 11:00] VITALS: BP 103/50
[2021-06-06 15:00] VITALS: BP 134/62
[2021-06-06 18:00] VITALS: BP 119/53
[2021-06-06] MEDS: doxepin 25mg capsule PO SCH (20:17)
[2021-06-06 22:00] VITALS: BP 102/43
[2021-06-06] MEDS: levoFLOXACIN-Levaquin 250mg/D5 100 ML IV SCH (22:56)
[2021-06-07] MEDS: normal saline 1000ml 1,000 ML IV SCH ×2 (05:42→13:32)
[2021-06-07 06:00] VITALS: BP 120/65
--- NOTE | 2021-06-07 06:20 | NUR ---
Patient in room PCU 3023. I have received report from Johanna GARCIA and had the opportunity to ask questions and assume patient care.
--- NOTE | 2021-06-07 06:36 | NUR ---
Problems reprioritized. Patient report given, questions answered & plan of care reviewed with RADHA Worley.
[2021-06-07 07:22] LABS: BASOPHILS % (AUTO) 0.2 % (0-1); EOSINOPHILS # (AUTO) 0.1 X10'3 (0-0.9); EOSINOPHILS % (AUTO) 0.7 % (0-6); HEMATOCRIT 31.3 % (42.0-52.0); HEMOGLOBIN 10.2 g/dl (14.0-17.9); LYMPHOCYTES # (AUTO) 1.5 X10'3 (1.1-4.8); MEAN CORPUSCULAR HEMOGLOBIN 28.7 PG (27.0-31.0); MEAN CORPUSCULAR HGB CONC 32.6 g/dL (33.0-36.5); MEAN CORPUSCULAR VOLUME 87.8 FL (78-98); MEAN PLATELET VOLUME 7.2 FL (7.4-10.4); MONOCYTES # (AUTO) 1.1 X10'3 (0-0.9); MONOCYTES % (AUTO) 8.3 % (2-12); NEUTROPHILS # (AUTO) 10.8 X10'3 (1.8-7.7); NEUTROPHILS % (AUTO) 79.8 % (42-75); PLATELET COUNT 326 X10'3 (140-440); RED BLOOD COUNT 3.57 X10'6 (4.70-6.10); RED CELL DISTRIBUTION WIDTH 16.8 % (11.5-14.5); WHITE BLOOD COUNT 13.5 X10'3 (4.5-11.0)
[2021-06-07 08:00] LABS: ALANINE AMINOTRANSFERASE 23 U/L (12-78); ALBUMIN 1.9 G/DL (3.4-5.0); ALBUMIN/GLOBULIN RATIO 0.5 (1.1-1.5); ALKALINE PHOSPHATASE 88 IU/L (46-116); ANION GAP 12 (8-16); ASPARTATE AMINO TRANSFERASE 25 U/L (10-37); BILIRUBIN,TOTAL 0.4 MG/DL (0.1-1.0); BLOOD UREA NITROGEN 46 MG/DL (7-18); BUN/CREATININE RATIO 29.5 (5.4-32.0); CHLORIDE 108 MMOL/L (99-107); CREATININE 1.56 MG/DL (0.60-1.10); GLUCOSE 129 MG/DL (70-104); MAGNESIUM 1.7 MG/DL (1.5-2.4); SODIUM 143 MMOL/L (135-145); TOTAL CARBON DIOXIDE 23.1 MMOL/L (24-32); TOTAL PROTEIN 6.1 G/DL (6.4-8.2); eGFR 43 ML/MIN
[2021-06-07] MEDS: K and/or MAG REPLACEMENT MC SCH ×2 (08:00→20:00)
[2021-06-07 08:04] LABS: POTASSIUM 4.3 MMOL/L (3.5-5.1)
[2021-06-07] MEDS: OMEGA-3/DHA/EPA/FISH OIL 1 EACH CAPSULE.DR PO SCH (08:17)
[2021-06-07] MEDS: ascorbic acid 500mg tablet PO SCH (08:18)
[2021-06-07] MEDS: duloxetine 30mg CAPSULE.DR PO SCH (08:18)
[2021-06-07] MEDS: tamsulosin 0.4mg capsule PO SCH (08:18)
[2021-06-07] MEDS: cholecalciferol (vitamin D3) 1,000 unit (25mcg) tablet PO SCH (08:18)
[2021-06-07] MEDS: calcium carbonate 500mg tablet PO SCH (08:18)
[2021-06-07] MEDS: folic acid 1mg tablet PO SCH (08:18)
[2021-06-07] MEDS: baclofen 10mg tablet PO SCH ×3 (08:19→20:30)
[2021-06-07] MEDS: fenofibrate 145mg tablet PO SCH (08:19)
[2021-06-07] MEDS: apixaban 5mg tablet PO SCH (08:19)
[2021-06-07] MEDS: multivitamins, therapeutics tablet PO SCH (08:19)
[2021-06-07] MEDS: pantoprazole 40mg Tablet.DR PO SCH (08:19)
[2021-06-07] MEDS: oxyCODONE SR 10mg (sust. release) tab PO SCH ×2 (08:19→20:30)
[2021-06-07] MEDS: naphazoline/pheniramine eye 1 DROP BOTTLE EACHEYE SCH ×2 (08:20→20:30)
[2021-06-07] MEDS: metroNIDAZOLE-Flagyl 500mg/NS 100 ML IV SCH (08:21)
[2021-06-07] MEDS: losartan 50mg tablet PO SCH (08:30)
[2021-06-07] MEDS: amLODIPine 5mg tablet PO SCH (08:31)
[2021-06-07] MEDS: vancomycin/NS 1 GM ADD-VANTAGE 250 ML IV SCH (09:16)
[2021-06-07 11:00] VITALS: BP 124/46
[2021-06-07 15:00] VITALS: BP 120/46
--- NOTE | 2021-06-07 17:19 | NUR ---
PAGER ID: [phone] MESSAGE: Re: DanielesdrasAntonio. Room: 3023C. Pt's Savannahis is on hold for IR liver procedure on Thursday. Do you want heparin or lovenox till then? -[facility] #[phone] -Dr. Perez paged concerning Pt's blood thinners.
[2021-06-07 18:00] VITALS: BP 100/70
--- NOTE | 2021-06-07 18:20 | NUR ---
Patient in room U 3023. I have received report from KOLTON GARCIA and had the opportunity to ask questions and assume patient care. Addendum: 06/07/21 at 1918 by Corinna Villela RN Amended: Links added.
[2021-06-07] MEDS: doxepin 25mg capsule PO SCH (20:31)
[2021-06-07 23:00] VITALS: BP 139/56
--- NOTE | 2021-06-08 02:30 | NUR ---
pt c/om p0ain 8-06/21 and medicated with 2mg of morphine for this.
[2021-06-08 04:28] VITALS: BP 129/69
[2021-06-08 06:00] VITALS: BP 150/69
--- NOTE | 2021-06-08 06:30 | NUR ---
Patient in room PCU 3023. I have received report from Corinna GARCIA and had the opportunity to ask questions and assume patient care.
--- NOTE | 2021-06-08 06:30 | NUR ---
Problems reprioritized. Patient report given, questions answered & plan of care reviewed with KOLTON GARCIA. Addendum: 06/08/21 at 0631 by Corinna Villela RN Amended: Links added.
[2021-06-08] MEDS ORDERED: VANCOMYCIN LEVEL IV ONE (07:30)
[2021-06-08] MEDS: OMEGA-3/DHA/EPA/FISH OIL 1 EACH CAPSULE.DR PO SCH (07:34)
[2021-06-08] MEDS: oxyCODONE SR 10mg (sust. release) tab PO SCH ×2 (07:34→20:16)
[2021-06-08] MEDS: baclofen 10mg tablet PO SCH ×3 (07:34→20:16)
[2021-06-08] MEDS: duloxetine 30mg CAPSULE.DR PO SCH (07:35)
[2021-06-08] MEDS: folic acid 1mg tablet PO SCH (07:35)
[2021-06-08] MEDS: amLODIPine 5mg tablet PO SCH (07:35)
[2021-06-08] MEDS: calcium carbonate 500mg tablet PO SCH (07:35)
[2021-06-08] MEDS: cholecalciferol (vitamin D3) 1,000 unit (25mcg) tablet PO SCH (07:35)
[2021-06-08] MEDS: ascorbic acid 500mg tablet PO SCH (07:36)
[2021-06-08] MEDS: multivitamins, therapeutics tablet PO SCH (07:36)
[2021-06-08] MEDS: losartan 50mg tablet PO SCH (07:36)
[2021-06-08] MEDS: tamsulosin 0.4mg capsule PO SCH (07:36)
[2021-06-08] MEDS: naphazoline/pheniramine eye 1 DROP BOTTLE EACHEYE SCH ×2 (07:36→20:16)
[2021-06-08] MEDS: pantoprazole 40mg Tablet.DR PO SCH (07:36)
[2021-06-08] MEDS: fenofibrate 145mg tablet PO SCH (07:36)
[2021-06-08] MEDS: K and/or MAG REPLACEMENT MC SCH ×2 (08:00→20:00)
[2021-06-08 08:28] LABS: BASOPHILS % (AUTO) 0.2 % (0-1); EOSINOPHILS % (AUTO) 0.3 % (0-6); HEMATOCRIT 33.5 % (42.0-52.0); HEMOGLOBIN 11.1 g/dl (14.0-17.9); LYMPHOCYTES # (AUTO) 1.5 X10'3 (1.1-4.8); LYMPHOCYTES % (AUTO) 11.2 % (21-51); MEAN CORPUSCULAR HEMOGLOBIN 28.6 PG (27.0-31.0); MEAN CORPUSCULAR HGB CONC 33.3 g/dL (33.0-36.5); MEAN CORPUSCULAR VOLUME 85.9 FL (78-98); MEAN PLATELET VOLUME 7.1 FL (7.4-10.4); MONOCYTES # (AUTO) 1.4 X10'3 (0-0.9); MONOCYTES % (AUTO) 10.4 % (2-12); NEUTROPHILS # (AUTO) 10.4 X10'3 (1.8-7.7); NEUTROPHILS % (AUTO) 77.9 % (42-75); PLATELET COUNT 367 X10'3 (140-440); RED CELL DISTRIBUTION WIDTH 16.7 % (11.5-14.5); WHITE BLOOD COUNT 13.3 X10'3 (4.5-11.0)
[2021-06-08] MEDS: fentaNYL 50MCG/HOUR patch.TD72 TD SCH (08:49)
[2021-06-08 09:03] LABS: ANISOCYTOSIS 1+; MICROCYTOSIS 1+; PLATELET ESTIMATE NORMAL; POIKILOCYTOSIS FEW; POLYCHROMASIA FEW
[2021-06-08 09:28] LABS: ALANINE AMINOTRANSFERASE 18 U/L (12-78); ALBUMIN 2.2 G/DL (3.4-5.0); ALBUMIN/GLOBULIN RATIO 0.5 (1.1-1.5); ALKALINE PHOSPHATASE 87 IU/L (46-116); ANION GAP 9 (8-16); ASPARTATE AMINO TRANSFERASE 16 U/L (10-37); BILIRUBIN,TOTAL 0.9 MG/DL (0.1-1.0); BLOOD UREA NITROGEN 31 MG/DL (7-18); BUN/CREATININE RATIO 26.3 (5.4-32.0); CALCIUM 9.4 MG/DL (8.5-10.1); CHLORIDE 109 MMOL/L (99-107); CREATININE 1.18 MG/DL (0.60-1.10); GLUCOSE 126 MG/DL (70-104); MAGNESIUM 1.4 MG/DL (1.5-2.4); POTASSIUM 3.7 MMOL/L (3.5-5.1); SODIUM 145 MMOL/L (135-145); TOTAL CARBON DIOXIDE 27.1 MMOL/L (24-32); TOTAL PROTEIN 6.6 G/DL (6.4-8.2); eGFR 60 ML/MIN
[2021-06-08] MEDS ORDERED: LINA145C PO (10:14)
[2021-06-08] MEDS: vancomycin/NS 1 GM ADD-VANTAGE 250 ML IV SCH (10:36)
[2021-06-08 11:00] VITALS: BP 143/65
[2021-06-08] MEDS: CefTRIAXone 2gm/D5W 50ml BAG 50 ML IV SCH (12:28)
--- NOTE | 2021-06-08 18:00 | NUR ---
Patient in room U 3023. I have received report from Meir GARCIA and had the opportunity to ask questions and assume patient care. Addendum: 06/08/21 at 2250 by Paula Parker RN Amended: Links added.
--- NOTE | 2021-06-08 18:38 | NUR ---
Problems reprioritized. Patient report given, questions answered & plan of care reviewed with Paula GARCIA.
[2021-06-08] MEDS: doxepin 25mg capsule PO SCH (20:16)
--- NOTE | 2021-06-08 21:00 | NUR ---
Pt. awake sitting on the edge of the bed watching TV with c/o SOB but wearing o2 and sating adequately. Pt. is cooperative at this time but refusing most of the care needed. Pt. refused most of the evening medication. Educated pt. on the importance of taking prescribed medication but the pt. declined. Call light within reach. Addendum: 06/09/21 at 725 by Paula Parker RN Amended: Links added. Addendum: 06/09/21 at 726 by Paula Parker RN Wrong pt.
[2021-06-08 22:00] VITALS: BP 122/77
[2021-06-08] MEDS: normal saline 1000ml 1,000 ML IV SCH ×2 (22:33)
[2021-06-09 03:00] VITALS: BP 135/72
--- NOTE | 2021-06-09 05:00 | NUR ---
Pt. slept well with noc/o pain throughout the shift. No c/o abdominal pain or N&V this shift. Remained pt. to call nurse for assist; pt. verbalized understanding. Addendum: 06/09/21 at 0735 by Paula Parker RN Amended: Links added.
--- NOTE | 2021-06-09 05:00 | NUR ---
Please disregard fluid intake of 1800 cc; wrong pt. Addendum: 06/09/21 at 0710 by Paula Parker RN Amended: Links added.
[2021-06-09] MEDS ORDERED: magnesium 4gm in 100ml NS 100 ML IV PRN (05:20)
[2021-06-09] MEDS ORDERED: magnesium Cl slow-release 64mg tablet PO PRN (05:20)
--- NOTE | 2021-06-09 06:00 | NUR ---
Problems reprioritized. Patient report given, questions answered & plan of care reviewed with Blanca GARCIA. Addendum: 06/09/21 at 0712 by Paula Parker RN Amended: Links added.
[2021-06-09 06:49] LABS: ALANINE AMINOTRANSFERASE 19 U/L (12-78); ALBUMIN/GLOBULIN RATIO 0.5 (1.1-1.5); ALKALINE PHOSPHATASE 66 IU/L (46-116); ANION GAP 10 (8-16); ASPARTATE AMINO TRANSFERASE 16 U/L (10-37); BILIRUBIN,TOTAL 0.8 MG/DL (0.1-1.0); BLOOD UREA NITROGEN 23 MG/DL (7-18); BUN/CREATININE RATIO 25.3 (5.4-32.0); CHLORIDE 108 MMOL/L (99-107); CREATININE 0.91 MG/DL (0.60-1.10); GLUCOSE 138 MG/DL (70-104); MAGNESIUM 1.5 MG/DL (1.5-2.4); POTASSIUM 3.7 MMOL/L (3.5-5.1); SODIUM 144 MMOL/L (135-145); TOTAL CARBON DIOXIDE 26.2 MMOL/L (24-32); TOTAL PROTEIN 6.2 G/DL (6.4-8.2); eGFR 81 ML/MIN
[2021-06-09 06:52] LABS: BASOPHILS % (AUTO) 0.2 % (0-1); EOSINOPHILS # (AUTO) 0.1 X10'3 (0-0.9); EOSINOPHILS % (AUTO) 0.4 % (0-6); HEMATOCRIT 31.6 % (42.0-52.0); HEMOGLOBIN 10.4 g/dl (14.0-17.9); LYMPHOCYTES # (AUTO) 1.7 X10'3 (1.1-4.8); LYMPHOCYTES % (AUTO) 11.7 % (21-51); MEAN CORPUSCULAR HEMOGLOBIN 28.5 PG (27.0-31.0); MEAN CORPUSCULAR VOLUME 86.3 FL (78-98); MEAN PLATELET VOLUME 7.1 FL (7.4-10.4); MONOCYTES # (AUTO) 1.5 X10'3 (0-0.9); MONOCYTES % (AUTO) 10.3 % (2-12); NEUTROPHILS # (AUTO) 11.3 X10'3 (1.8-7.7); NEUTROPHILS % (AUTO) 77.4 % (42-75); PLATELET COUNT 348 X10'3 (140-440); RED BLOOD COUNT 3.66 X10'6 (4.70-6.10); RED CELL DISTRIBUTION WIDTH 16.6 % (11.5-14.5); WHITE BLOOD COUNT 14.6 X10'3 (4.5-11.0)
[2021-06-09 07:00] VITALS: BP 140/78
[2021-06-09] MEDS: K and/or MAG REPLACEMENT MC SCH ×2 (08:00→20:00)
[2021-06-09] MEDS: naphazoline/pheniramine eye 1 DROP BOTTLE EACHEYE SCH ×2 (08:44→20:00)
[2021-06-09] MEDS: pantoprazole 40mg Tablet.DR PO SCH (08:44)
[2021-06-09] MEDS: CefTRIAXone 2gm/D5W 50ml BAG 50 ML IV SCH (08:44)
[2021-06-09] MEDS: losartan 50mg tablet PO SCH (08:44)
[2021-06-09] MEDS: folic acid 1mg tablet PO SCH (08:45)
[2021-06-09] MEDS: tamsulosin 0.4mg capsule PO SCH (08:45)
[2021-06-09] MEDS: OMEGA-3/DHA/EPA/FISH OIL 1 EACH CAPSULE.DR PO SCH (08:45)
[2021-06-09] MEDS: baclofen 10mg tablet PO SCH ×3 (08:45→20:44)
[2021-06-09] MEDS: duloxetine 30mg CAPSULE.DR PO SCH (08:45)
[2021-06-09] MEDS: oxyCODONE SR 10mg (sust. release) tab PO SCH ×2 (08:46→19:56)
[2021-06-09] MEDS: calcium carbonate 500mg tablet PO SCH (08:46)
[2021-06-09] MEDS: fenofibrate 145mg tablet PO SCH (08:46)
[2021-06-09] MEDS: cholecalciferol (vitamin D3) 1,000 unit (25mcg) tablet PO SCH (08:46)
[2021-06-09] MEDS: amLODIPine 5mg tablet PO SCH (08:46)
[2021-06-09] MEDS: multivitamins, therapeutics tablet PO SCH (08:46)
[2021-06-09] MEDS: ascorbic acid 500mg tablet PO SCH (08:47)
[2021-06-09 11:00] VITALS: BP 148/91
[2021-06-09] MEDS: fentaNYL 50MCG/HOUR patch.TD72 TD SCH (11:36)
--- NOTE | 2021-06-09 11:39 | NUR ---
Initial: Pt admitted after methotrexate overdose per EMR. Pt experiencing intermittent abd pain. Abd ultrasound 06/07 showed mass on liver. Pt able to eat well, mostly 100% of meals on heart healthy diet meeting needs. No N/V/D, LBM 06/05 pt noted to be constipated. No nutritional intervention at this time, will continue to monitor. Recs: 1. Continue Heart Healthy diet as tolerated 2. Bowel care per rx 3. Weekly wts Addendum: 06/09/21 at [address] Amended: Links added.
[2021-06-09 15:00] VITALS: BP 140/66
[2021-06-09] MEDS: normal saline 1000ml 1,000 ML IV SCH (17:14)
[2021-06-09 18:00] VITALS: BP 144/89
--- NOTE | 2021-06-09 18:07 | NUR ---
Patient in room PCU 3023. I have received report from Blanca GARCIA and had the opportunity to ask questions and assume patient care.
--- NOTE | 2021-06-09 18:07 | NUR ---
Problems reprioritized. Patient report given, questions answered & plan of care reviewed with Sam Baron.
[2021-06-09] MEDS: doxepin 25mg capsule PO SCH (20:47)
[2021-06-10] VITALS (15 sets, daily range): BP systolic 119–150; BP diastolic 65–97
--- NOTE | 2021-06-10 06:08 | NUR ---
Problems reprioritized. Patient report given, questions answered & plan of care reviewed with Blanca GARCIA.
--- NOTE | 2021-06-10 06:32 | NUR ---
Patient in room PCU 3023. I have received report from Radha GARCIA and had the opportunity to ask questions and assume patient care. Patient sleeping in bed an din no acute distress.
[2021-06-10] MEDS: K and/or MAG REPLACEMENT MC SCH ×2 (08:00→20:00)
[2021-06-10] MEDS: naphazoline/pheniramine eye 1 DROP BOTTLE EACHEYE SCH ×2 (08:11→20:00)
[2021-06-10] MEDS: pantoprazole 40mg Tablet.DR PO SCH (08:11)
[2021-06-10] MEDS: CefTRIAXone 2gm/D5W 50ml BAG 50 ML IV SCH (08:11)
[2021-06-10] MEDS: OMEGA-3/DHA/EPA/FISH OIL 1 EACH CAPSULE.DR PO SCH (08:12)
[2021-06-10] MEDS: tamsulosin 0.4mg capsule PO SCH (08:12)
[2021-06-10] MEDS: duloxetine 30mg CAPSULE.DR PO SCH (08:12)
[2021-06-10] MEDS: losartan 50mg tablet PO SCH (08:12)
[2021-06-10] MEDS: oxyCODONE SR 10mg (sust. release) tab PO SCH ×2 (08:13→20:00)
[2021-06-10] MEDS: baclofen 10mg tablet PO SCH ×3 (08:13→21:00)
[2021-06-10] MEDS: amLODIPine 5mg tablet PO SCH (08:13)
[2021-06-10] MEDS: fenofibrate 145mg tablet PO SCH (08:13)
[2021-06-10] MEDS: multivitamins, therapeutics tablet PO SCH (08:13)
[2021-06-10] MEDS: calcium carbonate 500mg tablet PO SCH (08:13)
[2021-06-10] MEDS: folic acid 1mg tablet PO SCH (08:13)
[2021-06-10] MEDS: ascorbic acid 500mg tablet PO SCH (08:14)
[2021-06-10] MEDS: cholecalciferol (vitamin D3) 1,000 unit (25mcg) tablet PO SCH (08:14)
[2021-06-10] MEDS ORDERED: fentaNYL/PF 50MCG/1 ML 2ML syringe ONE ×2 (09:25→10:03)
[2021-06-10] MEDS ORDERED: midazolam 1 mg/ML 2ml injection ONE (09:25)
[2021-06-10 09:40] LABS: BASOPHILS # (AUTO) 0.1 X10'3 (0-0.2); BASOPHILS % (AUTO) 0.6 % (0-1); EOSINOPHILS # (AUTO) 0.1 X10'3 (0-0.9); EOSINOPHILS % (AUTO) 0.4 % (0-6); HEMATOCRIT 33.6 % (42.0-52.0); LYMPHOCYTES # (AUTO) 1.9 X10'3 (1.1-4.8); LYMPHOCYTES % (AUTO) 13.6 % (21-51); MEAN CORPUSCULAR HEMOGLOBIN 28.3 PG (27.0-31.0); MEAN CORPUSCULAR HGB CONC 32.6 g/dL (33.0-36.5); MEAN CORPUSCULAR VOLUME 86.6 FL (78-98); MEAN PLATELET VOLUME 7.1 FL (7.4-10.4); MONOCYTES # (AUTO) 1.1 X10'3 (0-0.9); MONOCYTES % (AUTO) 7.6 % (2-12); NEUTROPHILS # (AUTO) 10.9 X10'3 (1.8-7.7); NEUTROPHILS % (AUTO) 77.8 % (42-75); PLATELET COUNT 337 X10'3 (140-440); RED BLOOD COUNT 3.88 X10'6 (4.70-6.10); RED CELL DISTRIBUTION WIDTH 16.6 % (11.5-14.5)
[2021-06-10 09:56] LABS: CALCIUM 9.1 MG/DL (8.5-10.1); CHLORIDE 106 MMOL/L (99-107); CREATININE 0.86 MG/DL (0.60-1.10); GLUCOSE 113 MG/DL (70-104); POTASSIUM 3.7 MMOL/L (3.5-5.1); eGFR 86 ML/MIN
[2021-06-10 10:02] LABS: ANION GAP 11 (8-16); BLOOD UREA NITROGEN 18 MG/DL (7-18); BUN/CREATININE RATIO 20.9 (5.4-32.0); SODIUM 144 MMOL/L (135-145)
--- NOTE | 2021-06-10 10:02 | NUR ---
At bedside Dr. Perez gave me a verbal order to DC fluids
--- NOTE | 2021-06-10 13:42 | NUR ---
Page Sent to Dr. Perez. promotional table spacer PAGER ID: [phone] MESSAGE: [id number] Harrison. Patient c/o 07/21 pain after DAKOTA drain insertion by IR. 80 cc of pus was aspirated from abscess and sent to culture. Patient requesting pain med. No PRNs. Please advise. Blanca ext. [phone]
--- NOTE | 2021-06-10 18:57 | NUR ---
report given to narayan GARCIA . Patient sleeping in bed
[2021-06-10] MEDS: apixaban 5mg tablet PO SCH (20:00)
[2021-06-10] MEDS: doxepin 25mg capsule PO SCH (21:00)
[2021-06-11 03:00] VITALS: BP 114/78
[2021-06-11 06:14] LABS: BASOPHILS % (AUTO) 0.2 % (0-1); EOSINOPHILS % (AUTO) 0.3 % (0-6); HEMATOCRIT 30.7 % (42.0-52.0); LYMPHOCYTES # (AUTO) 1.6 X10'3 (1.1-4.8); LYMPHOCYTES % (AUTO) 13.3 % (21-51); MEAN CORPUSCULAR HEMOGLOBIN 28.2 PG (27.0-31.0); MEAN CORPUSCULAR HGB CONC 32.5 g/dL (33.0-36.5); MEAN CORPUSCULAR VOLUME 86.7 FL (78-98); MEAN PLATELET VOLUME 7.2 FL (7.4-10.4); MONOCYTES # (AUTO) 0.6 X10'3 (0-0.9); MONOCYTES % (AUTO) 4.9 % (2-12); NEUTROPHILS # (AUTO) 9.5 X10'3 (1.8-7.7); NEUTROPHILS % (AUTO) 81.3 % (42-75); PLATELET COUNT 371 X10'3 (140-440); RED BLOOD COUNT 3.54 X10'6 (4.70-6.10); RED CELL DISTRIBUTION WIDTH 16.5 % (11.5-14.5); WHITE BLOOD COUNT 11.7 X10'3 (4.5-11.0)
[2021-06-11 06:19] LABS: ALBUMIN 1.9 G/DL (3.4-5.0); ANION GAP 7 (8-16); BLOOD UREA NITROGEN 18 MG/DL (7-18); BUN/CREATININE RATIO 22.5 (5.4-32.0); CALCIUM 8.9 MG/DL (8.5-10.1); CHLORIDE 106 MMOL/L (99-107); GLUCOSE 138 MG/DL (70-104); MAGNESIUM 1.7 MG/DL (1.5-2.4); POTASSIUM 3.4 MMOL/L (3.5-5.1); SODIUM 142 MMOL/L (135-145); eGFR > 90 ML/MIN
--- NOTE | 2021-06-11 06:25 | NUR ---
Patient in room PCU 3023. I have received report from Funmilayo GARCIA and had the opportunity to ask questions and assume patient care.
[2021-06-11 07:00] VITALS: BP 131/68
[2021-06-11] MEDS: naphazoline/pheniramine eye 1 DROP BOTTLE EACHEYE SCH ×2 (08:00→19:52)
[2021-06-11] MEDS ORDERED: potassium Cl 40MEQ/1/2NS 520ml 520 ML IV PRN (08:25)
[2021-06-11] MEDS ORDERED: magnesium Cl slow-release 64mg tablet PO PRN (08:25)
[2021-06-11] MEDS ORDERED: potassium Cl 20 mEq SR tablet PO PRN (08:25)
[2021-06-11] MEDS ORDERED: magnesium 4gm in 100ml NS 100 ML IV PRN (08:25)
[2021-06-11] MEDS: apixaban 5mg tablet PO SCH ×2 (08:48→19:52)
[2021-06-11] MEDS: cholecalciferol (vitamin D3) 1,000 unit (25mcg) tablet PO SCH (08:48)
[2021-06-11] MEDS: oxyCODONE SR 10mg (sust. release) tab PO SCH ×2 (08:48→19:52)
[2021-06-11] MEDS: potassium Cl 20 mEq SR tablet PO PRN ×2 (08:48→19:59)
[2021-06-11] MEDS: calcium carbonate 500mg tablet PO SCH (08:48)
[2021-06-11] MEDS: OMEGA-3/DHA/EPA/FISH OIL 1 EACH CAPSULE.DR PO SCH (08:48)
[2021-06-11] MEDS: folic acid 1mg tablet PO SCH (08:48)
[2021-06-11] MEDS: ascorbic acid 500mg tablet PO SCH (08:49)
[2021-06-11] MEDS: pantoprazole 40mg Tablet.DR PO SCH (08:49)
[2021-06-11] MEDS: losartan 50mg tablet PO SCH (08:49)
[2021-06-11] MEDS: duloxetine 30mg CAPSULE.DR PO SCH (08:49)
[2021-06-11] MEDS: tamsulosin 0.4mg capsule PO SCH (08:49)
[2021-06-11] MEDS: CefTRIAXone 2gm/D5W 50ml BAG 50 ML IV SCH (08:50)
[2021-06-11] MEDS: K and/or MAG REPLACEMENT MC SCH ×2 (08:50→20:00)
[2021-06-11] MEDS: amLODIPine 5mg tablet PO SCH (08:50)
[2021-06-11] MEDS: baclofen 10mg tablet PO SCH ×2 (08:50→21:00)
[2021-06-11] MEDS: fenofibrate 145mg tablet PO SCH (08:51)
[2021-06-11] MEDS: multivitamins, therapeutics tablet PO SCH (08:51)
[2021-06-11] MEDS: fentaNYL 50MCG/HOUR patch.TD72 TD SCH (08:51)
[2021-06-11 11:00] VITALS: BP 122/57
--- NOTE | 2021-06-11 11:31 | NUR ---
Page to PICC [id number] Harrison. Patient needs PICC to get IV antibiotics after DC. Consent has already been signed by and patient is able to give consent Blanca [phone]
--- NOTE | 2021-06-11 13:36 | NUR ---
Page to PICC rn. [id number] Harrison. Order for PICC placed. Consent in chart and signed by . Please place PICC. thank you. Blanca [phone]
[2021-06-11 15:00] VITALS: BP 121/56
--- NOTE | 2021-06-11 15:10 | NUR ---
page to PICC [id number] Pastega. Patient is ready for PICC. Please place. Farheen [phone]
[2021-06-11 18:00] VITALS: BP 151/70
--- NOTE | 2021-06-11 18:07 | NUR ---
Problems reprioritized. Patient report given, questions answered & plan of care reviewed with Jia GARCIA.
--- NOTE | 2021-06-11 18:15 | NUR ---
Patient in room PCU 3023. I have received report from Blanca GARCIA and had the opportunity to ask questions and assume patient care.
[2021-06-11] MEDS: doxepin 25mg capsule PO SCH (19:52)
[2021-06-11 22:00] VITALS: BP 131/82
[2021-06-12 02:00] VITALS: BP 116/62
--- NOTE | 2021-06-12 06:19 | NUR ---
Problems reprioritized. Patient report given, questions answered & plan of care reviewed with Migdalia GARCIA at bedside.
--- NOTE | 2021-06-12 06:27 | NUR ---
Patient in room PCU 3023. I have received report from Jia GARCIA and had the opportunity to ask questions and assume patient care. Pt supine in bed, alert to voice, no sob. O2/NC/2LPM. safety measures in place. no s/sx acute distress.
[2021-06-12 07:00] VITALS: BP 136/82
[2021-06-12 07:20] LABS: BASOPHILS % (AUTO) 0.4 % (0-1); EOSINOPHILS # (AUTO) 0.1 X10'3 (0-0.9); EOSINOPHILS % (AUTO) 0.5 % (0-6); HEMATOCRIT 30.7 % (42.0-52.0); HEMOGLOBIN 10.2 g/dl (14.0-17.9); LYMPHOCYTES # (AUTO) 1.5 X10'3 (1.1-4.8); LYMPHOCYTES % (AUTO) 14.3 % (21-51); MEAN CORPUSCULAR HEMOGLOBIN 28.5 PG (27.0-31.0); MEAN CORPUSCULAR HGB CONC 33.3 g/dL (33.0-36.5); MEAN CORPUSCULAR VOLUME 85.6 FL (78-98); MEAN PLATELET VOLUME 6.9 FL (7.4-10.4); MONOCYTES # (AUTO) 0.6 X10'3 (0-0.9); MONOCYTES % (AUTO) 5.5 % (2-12); NEUTROPHILS # (AUTO) 8.4 X10'3 (1.8-7.7); NEUTROPHILS % (AUTO) 79.3 % (42-75); PLATELET COUNT 380 X10'3 (140-440); RED BLOOD COUNT 3.58 X10'6 (4.70-6.10); RED CELL DISTRIBUTION WIDTH 16.7 % (11.5-14.5); WHITE BLOOD COUNT 10.7 X10'3 (4.5-11.0)
[2021-06-12 07:55] LABS: ALANINE AMINOTRANSFERASE 9 U/L (12-78); ALBUMIN 1.9 G/DL (3.4-5.0); ALBUMIN/GLOBULIN RATIO 0.4 (1.1-1.5); ALKALINE PHOSPHATASE 68 IU/L (46-116); ANION GAP 9 (8-16); ASPARTATE AMINO TRANSFERASE 17 U/L (10-37); BILIRUBIN,TOTAL 0.4 MG/DL (0.1-1.0); BLOOD UREA NITROGEN 16 MG/DL (7-18); BUN/CREATININE RATIO 19.3 (5.4-32.0); CALCIUM 8.6 MG/DL (8.5-10.1); CHLORIDE 107 MMOL/L (99-107); CREATININE 0.83 MG/DL (0.60-1.10); GLUCOSE 122 MG/DL (70-104); POTASSIUM 3.9 MMOL/L (3.5-5.1); SODIUM 144 MMOL/L (135-145); TOTAL CARBON DIOXIDE 27.8 MMOL/L (24-32); TOTAL PROTEIN 6.2 G/DL (6.4-8.2); eGFR 90 ML/MIN
[2021-06-12] MEDS: K and/or MAG REPLACEMENT MC SCH (08:00)
[2021-06-12] MEDS: naphazoline/pheniramine eye 1 DROP BOTTLE EACHEYE SCH (08:00)
[2021-06-12] MEDS: apixaban 5mg tablet PO SCH (08:29)
[2021-06-12] MEDS: oxyCODONE SR 10mg (sust. release) tab PO SCH (08:29)
[2021-06-12] MEDS: multivitamins, therapeutics tablet PO SCH (08:29)
[2021-06-12] MEDS: amLODIPine 5mg tablet PO SCH (08:29)
[2021-06-12] MEDS: folic acid 1mg tablet PO SCH (08:29)
[2021-06-12] MEDS: duloxetine 30mg CAPSULE.DR PO SCH (08:29)
[2021-06-12] MEDS: tamsulosin 0.4mg capsule PO SCH (08:29)
[2021-06-12] MEDS: cholecalciferol (vitamin D3) 1,000 unit (25mcg) tablet PO SCH (08:29)
[2021-06-12] MEDS: calcium carbonate 500mg tablet PO SCH (08:30)
[2021-06-12] MEDS: OMEGA-3/DHA/EPA/FISH OIL 1 EACH CAPSULE.DR PO SCH (08:30)
[2021-06-12] MEDS: ascorbic acid 500mg tablet PO SCH (08:30)
[2021-06-12] MEDS: fenofibrate 145mg tablet PO SCH (08:30)
[2021-06-12] MEDS: losartan 50mg tablet PO SCH (08:30)
[2021-06-12] MEDS: pantoprazole 40mg Tablet.DR PO SCH (08:30)
[2021-06-12] MEDS: baclofen 10mg tablet PO SCH (08:31)
[2021-06-12] MEDS: CefTRIAXone 2gm/D5W 50ml BAG 50 ML IV SCH (08:35)
[2021-06-12] MEDS ORDERED: HYDR-3965 PO (09:50)
[2021-06-12 11:00] VITALS: BP 122/96
--- NOTE | 2021-06-12 13:07 | NUR ---
Pt stable for discharge per MD order. All discharge instructions explained, all questions answered with pt and his . new RX escripted to [facility] on [address]. no PIV. PICC flushed. gambling monitor discontinued. pt wheeled to the lobby where he loaded into private vehicle. Pt left without sob. no drainage noted from s/p DAKOTA drain site. no s/sx acute distress.
[2021-06-14] MEDS ORDERED: ADALIMUMAB SQ SCH (08:00)
== END 2021-06-12 13:07 | disposition home health service (06) | DRG 871 ==
LOC: ER 20:02 → PCU 3S 06-04 04:13
PROVIDERS: ADMIT Internal Medicine; ATTEND Internal Medicine
PROC: 0F9130Z Drainage of Right Lobe Liver with Drainage Device, Percutaneous Approach (ICD-10-PCS; principal; 2021-06-10)
PROC: 02HV33Z Insertion of Infusion Device into Superior Vena Cava, Percutaneous Approach (ICD-10-PCS; 2021-06-11)
PROC: B548ZZA Ultrasonography of Superior Vena Cava, Guidance (ICD-10-PCS; 2021-06-11)
DX: A40.8 Other streptococcal sepsis (principal); K75.0 Abscess of liver; E43 Unspecified severe protein-calorie malnutrition; N17.9 Acute kidney failure, unspecified; T45.1X1A Poisoning by antineoplastic and immunosuppressive drugs, accidental (unintentional), initial encounter; D63.8 Anemia in other chronic diseases classified elsewhere; E78.00 Pure hypercholesterolemia, unspecified; E78.5 Hyperlipidemia, unspecified; G89.29 Other chronic pain; I12.9 Hypertensive chronic kidney disease with stage 1 through stage 4 chronic kidney disease, or unspecified chronic kidney disease; E66.9 Obesity, unspecified; M19.90 Unspecified osteoarthritis, unspecified site; M54.9 Dorsalgia, unspecified; Z20.822 Contact with and (suspected) exposure to COVID-19; R16.0 Hepatomegaly, not elsewhere classified; I48.0 Paroxysmal atrial fibrillation; K57.30 Diverticulosis of large intestine without perforation or abscess without bleeding; K76.0 Fatty (change of) liver, not elsewhere classified; L40.50 Arthropathic psoriasis, unspecified; N18.30 Chronic kidney disease, stage 3 unspecified; N40.0 Benign prostatic hyperplasia without lower urinary tract symptoms; Y92.89 Other specified places as the place of occurrence of the external cause; Z79.01 Long term (current) use of anticoagulants; Z79.899 Other long term (current) drug therapy; Z90.49 Acquired absence of other specified parts of digestive tract; Z68.28 Body mass index [BMI] 28.0-28.9, adult
CPT/HCPCS: 36415; 36573; 49405; 71045; 74176; 74181; 76700; 76705; 80048; 80053; 80202; 80299; 81003; 83605; 83735; 83880; 84484; 85007; 85008; 85025; 87040; 87070; 87077; 87081; 87186; 87635; 93005; 93306; 96365; 96366; 96368; 96375; 99285; C9803; G0378; J0696; J1956; J2250; J2270; J3010; J3370; J3490; J7030

== ENCOUNTER 2021-08-12 22:35 | Inpatient (IN) | payer BC ==
[~2021-08-12] VITALS: Ht 185.4 cm; Wt 97.7 kg
[~2021-08-12 22:35] MED LIST changes: -AMOX-580 PO; +CHOL20002 PO; -CHOL50004 PO; +LINA145C PO; -POTA-197 PO
[2021-08-12] MEDS ORDERED: normal saline 1000ML IV soln IVB ONE (23:15)
[2021-08-12 23:56] LABS: BASOPHILS % (AUTO) 0.8 % (0-1); EOSINOPHILS # (AUTO) 0.1 X10'3 (0-0.9); EOSINOPHILS % (AUTO) 2.6 % (0-6); HEMATOCRIT 36.6 % (42.0-52.0); HEMOGLOBIN 12.3 g/dl (14.0-17.9); LYMPHOCYTES # (AUTO) 1.6 X10'3 (1.1-4.8); LYMPHOCYTES % (AUTO) 34.7 % (21-51); MEAN CORPUSCULAR HEMOGLOBIN 28.2 PG (27.0-31.0); MEAN CORPUSCULAR HGB CONC 33.5 g/dL (33.0-36.5); MEAN PLATELET VOLUME 7.4 FL (7.4-10.4); MONOCYTES # (AUTO) 0.4 X10'3 (0-0.9); MONOCYTES % (AUTO) 8.4 % (2-12); NEUTROPHILS # (AUTO) 2.5 X10'3 (1.8-7.7); NEUTROPHILS % (AUTO) 53.5 % (42-75); PLATELET COUNT 241 X10'3 (140-440); RED BLOOD COUNT 4.36 X10'6 (4.70-6.10); RED CELL DISTRIBUTION WIDTH 17.3 % (11.5-14.5); WHITE BLOOD COUNT 4.6 X10'3 (4.5-11.0)
[2021-08-13 00:09] LABS: ALANINE AMINOTRANSFERASE 20 U/L (12-78); ALBUMIN 3.4 G/DL (3.4-5.0); ALBUMIN/GLOBULIN RATIO 0.9 (1.1-1.5); ALKALINE PHOSPHATASE 30 IU/L (46-116); ANION GAP 9 (8-16); ASPARTATE AMINO TRANSFERASE 19 U/L (10-37); BILIRUBIN,TOTAL 0.4 MG/DL (0.1-1.0); BLOOD UREA NITROGEN 23 MG/DL (7-18); BUN/CREATININE RATIO 17.3 (5.4-32.0); CALCIUM 8.6 MG/DL (8.5-10.1); CHLORIDE 107 MMOL/L (99-107); CREATININE 1.33 MG/DL (0.60-1.10); GLUCOSE 91 MG/DL (70-104); POTASSIUM 3.8 MMOL/L (3.5-5.1); SODIUM 144 MMOL/L (135-145); TOTAL CARBON DIOXIDE 28.2 MMOL/L (24-32); eGFR 52 ML/MIN
[2021-08-13 00:13] LABS: LACTIC SEPSIS 1.2 MMOL/L (0.4-2.0)
[2021-08-13 00:18] LABS: ETHANOL < 0.010 GM/DL (0.0-0.010); TROPONIN I < 0.04 NG/ML (0.0-0.05)
[2021-08-13 00:43] LABS: CLARITY,URINE CLEAR (Clear); COLOR,URINE YELLOW (Yellow); UA COLLECTION TYPE NON-SPECIFIED
[2021-08-13 00:44] LABS: GLUCOSE, URINE NEGATIVE (Neg); KETONES,URINE NEGATIVE (Neg); LEUKOCYTE ESTERASE ,URINE NEGATIVE (Neg); NITRITES, URINE NEGATIVE (Neg); OCCULT BLOOD,URINE NEGATIVE (Neg); PROTEIN,URINE NEGATIVE (Neg); UROBILINOGEN,URINE 0.2 E.U/dL (0.2-1.0)
[2021-08-13 00:47] LABS: URINE AMPHETAMINE SCREEN NEGATIVE (Neg); URINE BARBITUATE SCREEN NEGATIVE (Neg); URINE BENZODIAZEPINES SCREEN NEGATIVE (Neg); URINE CANNABINOID SCREEN NEGATIVE (Neg); URINE COCAINE SCREEN NEGATIVE (Neg); URINE METHADONE SCREEN NEGATIVE (Neg); URINE OPIATE SCREEN NEGATIVE (Neg); URINE PHENCYCLIDINE SCREEN NEGATIVE (Neg)
[2021-08-13] MEDS ORDERED: TURM500C4 PO (00:58)
--- NOTE | 2021-08-13 01:10 | NUR ---
[facility] [phone] ()
[2021-08-13] MEDS ORDERED: lactulose 20gm/30ml cup RC ONE (02:05)
[2021-08-13] MEDS ORDERED: ondansetron/PF 4mg/2ml inj IV PRN (02:10)
[2021-08-13] MEDS: normal saline 1000ml 1,000 ML IV SCH ×2 (02:10→19:18)
--- NOTE | 2021-08-13 02:26 | NUR ---
Patient with Dr. Yoder.
--- NOTE | 2021-08-13 02:57 | NUR ---
With [employer].
[2021-08-13] MEDS: OLOPATADINE HCL EACHEYE SCH ×2 (07:34→19:19)
--- NOTE | 2021-08-13 07:37 | NUR ---
Call to [facility] to bring patient's own eye drops, states she will bring them yariel.
[2021-08-13] MEDS ORDERED: OLOPATADINE HCL LEFTEYE SCH (08:00)
[2021-08-13] MEDS: lactulose 20gm/30ml cup RC SCH ×2 (08:08→19:17)
--- NOTE | 2021-08-13 12:07 | NUR ---
relieving RN for break, pt was up to have brown soft loose bowel movement, gave him warm blanket
[2021-08-13] MEDS ORDERED: fentaNYL 50MCG/HOUR patch.TD72 TD SCH (16:19)
[2021-08-13] MEDS: HYDROchlorothiazide 12.5mg capsule PO SCH (16:30)
[2021-08-13] MEDS: losartan 50mg tablet PO SCH (16:30)
[2021-08-13] MEDS: amLODIPine 5mg tablet PO SCH (16:30)
[2021-08-13 17:15] VITALS: BP 161/63
--- NOTE | 2021-08-13 17:15 | NUR ---
Patient arrive to unit, Patient ambulated from [place] [place] to bed, patients at bedside. Patients vitals taken and patient oriented to room. patient has call light and bed in low position,
--- NOTE | 2021-08-13 18:00 | NUR ---
Problems reprioritized. Patient report given, questions answered & plan of care reviewed with Ne GARCIA.
--- NOTE | 2021-08-13 18:15 | NUR ---
Patient in room ANA 358A. I have received report from RADHA Latif and had the opportunity to ask questions and assume patient care.
[2021-08-13] MEDS ORDERED: amLODIPine 5mg tablet PO ONE (19:05)
[2021-08-13] MEDS: apixaban 5mg tablet PO SCH (19:16)
[2021-08-13 20:00] VITALS: BP 175/98
[2021-08-13] MEDS ORDERED: heparin, porcine 5000 units/ml vial SQ SCH (20:00)
[2021-08-13] MEDS: baclofen 10mg tablet PO SCH (20:15)
[2021-08-13] MEDS ORDERED: non-formulary drug (Doxepin HCl 1 CAP) PO SCH (21:00)
[2021-08-13] MEDS ORDERED: doxepin 25mg capsule PO SCH (21:00)
[2021-08-14] VITALS: BP 107/77
[2021-08-14 05:32] LABS: BASOPHILS % (AUTO) 0.5 % (0-1); EOSINOPHILS # (AUTO) 0.1 X10'3 (0-0.9); EOSINOPHILS % (AUTO) 1.5 % (0-6); HEMATOCRIT 38.7 % (42.0-52.0); HEMOGLOBIN 13.1 g/dl (14.0-17.9); LYMPHOCYTES # (AUTO) 2.4 X10'3 (1.1-4.8); LYMPHOCYTES % (AUTO) 37.2 % (21-51); MEAN CORPUSCULAR HEMOGLOBIN 28.1 PG (27.0-31.0); MEAN CORPUSCULAR HGB CONC 33.7 g/dL (33.0-36.5); MEAN CORPUSCULAR VOLUME 83.4 FL (78-98); MEAN PLATELET VOLUME 7.1 FL (7.4-10.4); MONOCYTES # (AUTO) 0.6 X10'3 (0-0.9); MONOCYTES % (AUTO) 8.6 % (2-12); NEUTROPHILS # (AUTO) 3.3 X10'3 (1.8-7.7); NEUTROPHILS % (AUTO) 52.2 % (42-75); PLATELET COUNT 266 X10'3 (140-440); RED BLOOD COUNT 4.65 X10'6 (4.70-6.10); RED CELL DISTRIBUTION WIDTH 17.3 % (11.5-14.5); WHITE BLOOD COUNT 6.4 X10'3 (4.5-11.0)
[2021-08-14 05:47] LABS: ALANINE AMINOTRANSFERASE 22 U/L (12-78); ALBUMIN 3.8 G/DL (3.4-5.0); ALKALINE PHOSPHATASE 37 IU/L (46-116); ANION GAP 9 (8-16); ASPARTATE AMINO TRANSFERASE 23 U/L (10-37); BILIRUBIN,TOTAL 0.7 MG/DL (0.1-1.0); BLOOD UREA NITROGEN 16 MG/DL (7-18); BUN/CREATININE RATIO 14.8 (5.4-32.0); CALCIUM 9.2 MG/DL (8.5-10.1); CHLORIDE 106 MMOL/L (99-107); CREATININE 1.08 MG/DL (0.60-1.10); GLUCOSE 94 MG/DL (70-104); POTASSIUM 3.2 MMOL/L (3.5-5.1); SODIUM 143 MMOL/L (135-145); TOTAL CARBON DIOXIDE 28.5 MMOL/L (24-32); TOTAL PROTEIN 7.6 G/DL (6.4-8.2); eGFR 66 ML/MIN
--- NOTE | 2021-08-14 06:18 | NUR ---
Problems reprioritized. Patient report given, questions answered & plan of care reviewed with RADHA Perales.
[2021-08-14] MEDS ORDERED: tamsulosin 0.4mg capsule PO SCH (08:00)
[2021-08-14] MEDS ORDERED: folic acid 0.4mg tablet PO SCH (08:00)
[2021-08-14] MEDS: OLOPATADINE HCL EACHEYE SCH (08:00)
[2021-08-14] MEDS ORDERED: duloxetine 30mg CAPSULE.DR PO SCH (08:00)
[2021-08-14] MEDS: losartan 50mg tablet PO SCH (08:30)
[2021-08-14] MEDS: HYDROchlorothiazide 12.5mg capsule PO SCH (08:30)
[2021-08-14 08:32] VITALS: BP_SYST 154
[2021-08-14] MEDS: amLODIPine 5mg tablet PO SCH (08:32)
[2021-08-14] MEDS: apixaban 5mg tablet PO SCH (08:32)
[2021-08-14] MEDS: baclofen 10mg tablet PO SCH (08:33)
[2021-08-14] MEDS: lactulose 20gm/30ml cup RC SCH (08:34)
[2021-08-14] MEDS ORDERED: LACT10SO32 RC (10:29)
== END 2021-08-14 11:04 | disposition home or self-care (01) | DRG 442 ==
LOC: ER 22:37 → ED HOLD 08-13 02:09 → SUR 3N 08-13 18:12
PROVIDERS: ADMIT Internal Medicine; ATTEND Family Medicine
DX: K72.90 Hepatic failure, unspecified without coma (principal); D84.9 Immunodeficiency, unspecified; D64.9 Anemia, unspecified; E78.00 Pure hypercholesterolemia, unspecified; G47.33 Obstructive sleep apnea (adult) (pediatric); I48.91 Unspecified atrial fibrillation; I12.9 Hypertensive chronic kidney disease with stage 1 through stage 4 chronic kidney disease, or unspecified chronic kidney disease; N18.9 Chronic kidney disease, unspecified; L40.50 Arthropathic psoriasis, unspecified; G89.29 Other chronic pain; M47.9 Spondylosis, unspecified; M54.9 Dorsalgia, unspecified; Z79.899 Other long term (current) drug therapy
CPT/HCPCS: 36415; 70450; 71045; 76700; 80053; 80305; 80320; 81003; 82140; 82948; 83605; 84443; 84484; 85025; 87040; 87081; 93005; 96360; 97161; 97530; 99285; G0378; J7030

== ENCOUNTER 2022-01-31 14:55 | Emergency (ER) | payer BC ==
[~2022-01-31] VITALS: Ht 182.9 cm; Wt 97.0 kg
[~2022-01-31 14:55] MED LIST changes: +LACT10SO32 RC; -OLOP5DRO14 LEFTEYE; -OLOP5DRO14 RIGHTEYE; +OLOP5DRO26 LEFTEYE; +OLOP5DRO26 RIGHTEYE; +TURM500C4 PO
[2022-01-31 15:00] VITALS: BP 133/74
[2022-01-31] MEDS ORDERED: morphine 4 MG/ML inj SYRINge IM ONE (19:50)
[2022-01-31] MEDS ORDERED: ondansetron 4mg rapidly disintigrating tab PO ONE (19:50)
--- NOTE | 2022-01-31 20:04 | NUR ---
PO MED GIVEN IM GIVEN
== END 2022-01-31 20:11 | disposition home or self-care (01) ==
LOC: ER 14:56
DX: G89.29 Other chronic pain (principal); M54.9 Dorsalgia, unspecified; G47.00 Insomnia, unspecified; I11.9 Hypertensive heart disease without heart failure; E78.00 Pure hypercholesterolemia, unspecified; Z79.899 Other long term (current) drug therapy
CPT/HCPCS: 93005; 96372; 99283; J2270

== ENCOUNTER 2022-02-03 08:36 | Emergency (ER) | payer BC ==
[~2022-02-03] VITALS: Ht 185.4 cm; Wt 104.5 kg
[2022-02-03 09:34] LABS: BASOPHILS % (AUTO) 0.7 % (0-1); EOSINOPHILS # (AUTO) 0.1 X10'3 (0-0.9); EOSINOPHILS % (AUTO) 1.8 % (0-6); HEMATOCRIT 40.5 % (42.0-52.0); HEMOGLOBIN 13.6 g/dl (14.0-17.9); LYMPHOCYTES # (AUTO) 2.5 X10'3 (1.1-4.8); LYMPHOCYTES % (AUTO) 44.5 % (21-51); MEAN CORPUSCULAR HEMOGLOBIN 27.7 PG (27.0-31.0); MEAN CORPUSCULAR HGB CONC 33.6 g/dL (33.0-36.5); MEAN CORPUSCULAR VOLUME 82.5 FL (78-98); MEAN PLATELET VOLUME 7.7 FL (7.4-10.4); MONOCYTES # (AUTO) 0.6 X10'3 (0-0.9); MONOCYTES % (AUTO) 9.8 % (2-12); NEUTROPHILS # (AUTO) 2.5 X10'3 (1.8-7.7); NEUTROPHILS % (AUTO) 43.2 % (42-75); PLATELET COUNT 186 X10'3 (140-440); RED CELL DISTRIBUTION WIDTH 14.1 % (11.5-14.5); WHITE BLOOD COUNT 5.7 X10'3 (4.5-11.0)
[2022-02-03 09:52] LABS: ALANINE AMINOTRANSFERASE 42 U/L (12-78); ALBUMIN 3.4 G/DL (3.4-5.0); ALBUMIN/GLOBULIN RATIO 0.9 (1.1-1.5); ALKALINE PHOSPHATASE 28 IU/L (46-116); ANION GAP 9 (8-16); ASPARTATE AMINO TRANSFERASE 31 U/L (10-37); BILIRUBIN,TOTAL 0.6 MG/DL (0.1-1.0); BLOOD UREA NITROGEN 24 MG/DL (7-18); BUN/CREATININE RATIO 21.4 (5.4-32.0); CALCIUM 8.5 MG/DL (8.5-10.1); CHLORIDE 106 MMOL/L (99-107); CREATININE 1.12 MG/DL (0.60-1.10); GLUCOSE 102 MG/DL (70-104); POTASSIUM 3.4 MMOL/L (3.5-5.1); SODIUM 144 MMOL/L (135-145); TOTAL CARBON DIOXIDE 28.6 MMOL/L (24-32); TOTAL PROTEIN 7.1 G/DL (6.4-8.2); eGFR 63 ML/MIN
[2022-02-03] MEDS ORDERED: normal saline 1000ML IV soln IVB ONE (11:20)
[2022-02-03 12:37] LABS: CLARITY,URINE CLEAR (Clear); COLOR,URINE YELLOW (Yellow); GLUCOSE, URINE NEGATIVE (Neg); KETONES,URINE NEGATIVE (Neg); LEUKOCYTE ESTERASE ,URINE NEGATIVE (Neg); NITRITES, URINE NEGATIVE (Neg); OCCULT BLOOD,URINE TRACE-INTACT (Neg); PH,URINE 6.5 (4.8-8.0); PROTEIN,URINE NEGATIVE (Neg)
[2022-02-03 12:38] LABS: UA COLLECTION TYPE CLN CATCH MIDSTREAM
[2022-02-03 12:42] LABS: MUCUS STRANDS FEW /LPF (Neg); SQUAMOUS EPITHELIAL CELL,UR FEW /LPF (FEW)
[2022-02-03 12:43] LABS: BACTERIA,URINE 1+ /HPF (Neg); WBC,URINE 0-4 /HPF (0-4)
[2022-02-03 13:28] VITALS: BP 141/83
[2022-02-03 13:37] LABS: ETHANOL < 0.010 GM/DL (0.0-0.010)
--- NOTE | 2022-02-03 13:45 | NUR ---
pt walked around nurse's desk with steady gate maintained o2 stats 95 % hr 94 bp 147/88
[2022-02-03 13:49] LABS: URINE AMPHETAMINE SCREEN NEGATIVE (Neg); URINE BARBITUATE SCREEN NEGATIVE (Neg); URINE BENZODIAZEPINES SCREEN NEGATIVE (Neg); URINE CANNABINOID SCREEN NEGATIVE (Neg); URINE COCAINE SCREEN NEGATIVE (Neg); URINE METHADONE SCREEN NEGATIVE (Neg); URINE OPIATE SCREEN NEGATIVE (Neg); URINE PHENCYCLIDINE SCREEN NEGATIVE (Neg)
== END 2022-02-03 14:25 | disposition home or self-care (01) ==
LOC: ER 08:37
DX: R41.0 Disorientation, unspecified (principal); R68.2 Dry mouth, unspecified; I48.91 Unspecified atrial fibrillation; E78.00 Pure hypercholesterolemia, unspecified; I10 Essential (primary) hypertension; M19.90 Unspecified osteoarthritis, unspecified site; G89.29 Other chronic pain; G47.00 Insomnia, unspecified; Z79.899 Other long term (current) drug therapy; Z79.2 Long term (current) use of antibiotics; Z79.01 Long term (current) use of anticoagulants
CPT/HCPCS: 36415; 70450; 71045; 80053; 80305; 80320; 81001; 82140; 83880; 84484; 85025; 85610; 93005; 96360; 99285; J7030

== ENCOUNTER 2022-03-21 08:09 | Emergency (ER) | payer BC ==
[~2022-03-21] VITALS: Ht 185.4 cm; Wt 100.0 kg
[2022-03-21 08:15] VITALS: BP 148/74
== END 2022-03-21 10:54 | disposition left against medical advice (07) ==
LOC: ER 08:10
DX: M54.50 Low back pain, unspecified (principal); Z53.21 Procedure and treatment not carried out due to patient leaving prior to being seen by health care provider

== ENCOUNTER 2022-03-23 10:37 | Emergency (ER) | payer BC ==
[~2022-03-23] VITALS: Ht 185.4 cm; Wt 102.3 kg
[2022-03-23 11:23] LABS: BASOPHILS # (AUTO) 0.1 X10'3 (0-0.2); BASOPHILS % (AUTO) 1.4 % (0-1); EOSINOPHILS # (AUTO) 0.1 X10'3 (0-0.9); HEMATOCRIT 41.7 % (42.0-52.0); HEMOGLOBIN 14.3 g/dl (14.0-17.9); LYMPHOCYTES # (AUTO) 2.1 X10'3 (1.1-4.8); LYMPHOCYTES % (AUTO) 32.4 % (21-51); MEAN CORPUSCULAR HEMOGLOBIN 28.2 PG (27.0-31.0); MEAN CORPUSCULAR HGB CONC 34.3 g/dL (33.0-36.5); MEAN CORPUSCULAR VOLUME 82.3 FL (78-98); MEAN PLATELET VOLUME 7.8 FL (7.4-10.4); MONOCYTES # (AUTO) 0.6 X10'3 (0-0.9); MONOCYTES % (AUTO) 9.4 % (2-12); NEUTROPHILS # (AUTO) 3.5 X10'3 (1.8-7.7); NEUTROPHILS % (AUTO) 54.8 % (42-75); PLATELET COUNT 190 X10'3 (140-440); RED BLOOD COUNT 5.06 X10'6 (4.70-6.10); RED CELL DISTRIBUTION WIDTH 14.7 % (11.5-14.5); WHITE BLOOD COUNT 6.4 X10'3 (4.5-11.0)
[2022-03-23 11:36] LABS: ALANINE AMINOTRANSFERASE 45 U/L (12-78); ALBUMIN 3.5 G/DL (3.4-5.0); ALKALINE PHOSPHATASE 43 IU/L (46-116); ANION GAP 8 (8-16); ASPARTATE AMINO TRANSFERASE 27 U/L (10-37); BILIRUBIN,TOTAL 0.5 MG/DL (0.1-1.0); BLOOD UREA NITROGEN 24 MG/DL (7-18); BUN/CREATININE RATIO 22.9 (5.4-32.0); CALCIUM 8.9 MG/DL (8.5-10.1); CHLORIDE 108 MMOL/L (99-107); CREATININE 1.05 MG/DL (0.60-1.10); GLUCOSE 122 MG/DL (70-104); POTASSIUM 3.9 MMOL/L (3.5-5.1); SODIUM 142 MMOL/L (135-145); TOTAL PROTEIN 6.9 G/DL (6.4-8.2); eGFR 68 ML/MIN
[2022-03-23] MEDS ORDERED: LIDOcaine 1% 30ml preserv. free vial IJ STA (13:56)
[2022-03-23] MEDS ORDERED: triamcinolone acetonide 40mg/ml inj IJ ONE (14:00)
[2022-03-23] MEDS ORDERED: BUPIVAcaine/PF 2.5 mg/ml (0.25%) 30ml vial IJ ONE (14:00)
[2022-03-23] MEDS ORDERED: BUPIVAcaine/PF 2.5mg/ml (0.25%) 10ml vial IJ ONE (14:15)
[2022-03-23 14:45] VITALS: BP 147/95
== END 2022-03-23 14:47 | disposition home or self-care (01) ==
LOC: ER 10:37
DX: M25.512 Pain in left shoulder (principal); Z20.822 Contact with and (suspected) exposure to COVID-19; R06.02 Shortness of breath; I48.91 Unspecified atrial fibrillation; E78.00 Pure hypercholesterolemia, unspecified; I10 Essential (primary) hypertension; M19.90 Unspecified osteoarthritis, unspecified site; G89.29 Other chronic pain; Z90.49 Acquired absence of other specified parts of digestive tract; Z98.890 Other specified postprocedural states; Z79.899 Other long term (current) drug therapy; Z79.01 Long term (current) use of anticoagulants
CPT/HCPCS: 20610; 36415; 71045; 73030; 80053; 83880; 84484; 85025; 87502; 87503; 87635; 93005; 99285; C9803; J7030; 20611

== ENCOUNTER 2022-06-07 04:59 | Emergency (ER) | payer BC ==
[~2022-06-07] VITALS: Ht 182.9 cm; Wt 100.0 kg
[2022-06-07 05:15] VITALS: BP 135/76
[2022-06-07] MEDS ORDERED: ketorolac trometh inj. 60 MG/2 ML VIAL IM ONE (05:50)
[2022-06-07] MEDS ORDERED: acetaminophen 325mg tablet PO ONE (05:50)
[2022-06-07] MEDS ORDERED: diazepam 5mg tablet PO ONE (06:35)
--- NOTE | 2022-06-07 06:35 | NUR ---
PT STATES, "IM STILL HAVING PAIN. THE SHOTS REALLY DIDNT HELP". INFORMED DR. LLOYD, PLEASE SEE NEW ORDERS.
== END 2022-06-07 06:57 | disposition home or self-care (01) ==
LOC: ER 04:59
DX: S29.012A Strain of muscle and tendon of back wall of thorax, initial encounter (principal); E78.00 Pure hypercholesterolemia, unspecified; I10 Essential (primary) hypertension; M19.90 Unspecified osteoarthritis, unspecified site; G89.29 Other chronic pain; Z91.041 Radiographic dye allergy status; Z90.49 Acquired absence of other specified parts of digestive tract; X58.XXXA Exposure to other specified factors, initial encounter; Y93.89 Activity, other specified; Y92.89 Other specified places as the place of occurrence of the external cause; Y99.8 Other external cause status
CPT/HCPCS: 96372; 99283; J1885

== ENCOUNTER 2022-09-16 01:47 | Emergency (ER) | payer BC, OTHER ==
[~2022-09-16] VITALS: Ht 185.4 cm; Wt 102.3 kg
[2022-09-16 02:06] VITALS: BP 137/77
[2022-09-16] MEDS ORDERED: LIDOcaine 1% w/EPI 1:100,000 30ml vial (MDV) IJ ONE (02:30)
[2022-09-16] MEDS ORDERED: TETanus/Pertussis (Acell)/Diphther VAC/PF (Tdap-Adult) 0.5ml syringe IMVAC ONE (02:30)
== END 2022-09-16 03:31 | disposition home or self-care (01) ==
LOC: ER 01:48
DX: S61.012A Laceration without foreign body of left thumb without damage to nail, initial encounter (principal); I48.91 Unspecified atrial fibrillation; E78.00 Pure hypercholesterolemia, unspecified; I10 Essential (primary) hypertension; M19.90 Unspecified osteoarthritis, unspecified site; G89.29 Other chronic pain; Z90.49 Acquired absence of other specified parts of digestive tract; Z98.890 Other specified postprocedural states; Z88.8 Allergy status to other drugs, medicaments and biological substances; Z79.899 Other long term (current) drug therapy; W45.8XXA Other foreign body or object entering through skin, initial encounter; Y93.89 Activity, other specified; Y92.89 Other specified places as the place of occurrence of the external cause; Y99.8 Other external cause status
CPT/HCPCS: 12002; 90471; 90715; 99283; A6449

== ENCOUNTER 2023-03-02 03:11 | Inpatient (IN) | payer BC ==
[~2023-03-02] VITALS: Ht 188 cm; Wt 102.3 kg
[2023-03-02] VITALS (16 sets, daily range): BP systolic 122–174; BP diastolic 57–83
[~2023-03-02 03:11] MED LIST changes: -LACT10SO32 RC; +LACT10SO78 RC; +OLOP5DRO26 EACHEYE; -OLOP5DRO26 RIGHTEYE
[2023-03-02 04:23] LABS: BASOPHILS # (AUTO) 0.1 X10'3 (0-0.2); BASOPHILS % (AUTO) 1.3 % (0-1); EOSINOPHILS # (AUTO) 0.1 X10'3 (0-0.9); HEMATOCRIT 39.7 % (42.0-52.0); HEMOGLOBIN 13.7 g/dl (14.0-17.9); LYMPHOCYTES # (AUTO) 2.7 X10'3 (1.1-4.8); LYMPHOCYTES % (AUTO) 41.5 % (21-51); MEAN CORPUSCULAR HEMOGLOBIN 27.6 PG (27.0-31.0); MEAN CORPUSCULAR HGB CONC 34.5 g/dL (33.0-36.5); MEAN CORPUSCULAR VOLUME 80.1 FL (78-98); MEAN PLATELET VOLUME 8.1 FL (7.4-10.4); MONOCYTES # (AUTO) 0.7 X10'3 (0-0.9); MONOCYTES % (AUTO) 11.2 % (2-12); NEUTROPHILS # (AUTO) 2.9 X10'3 (1.8-7.7); PLATELET COUNT 104 X10'3 (140-440); RED BLOOD COUNT 4.95 X10'6 (4.70-6.10); RED CELL DISTRIBUTION WIDTH 15.8 % (11.5-14.5); WHITE BLOOD COUNT 6.5 X10'3 (4.5-11.0)
[2023-03-02 04:25] LABS: ALANINE AMINOTRANSFERASE 21 U/L (12-78); ALBUMIN 3.3 G/DL (3.4-5.0); ALBUMIN/GLOBULIN RATIO 1.2 (1.1-1.5); ALKALINE PHOSPHATASE 51 IU/L (46-116); ANION GAP 8 (8-16); ASPARTATE AMINO TRANSFERASE 18 U/L (10-37); BILIRUBIN,TOTAL 0.9 MG/DL (0.1-1.0); BLOOD UREA NITROGEN 20 MG/DL (7-18); BUN/CREATININE RATIO 21.1 (10.0-20.0); CALCIUM 8.3 MG/DL (8.5-10.1); CHLORIDE 107 MMOL/L (99-107); CREATININE 0.95 MG/DL (0.60-1.10); GLUCOSE 139 MG/DL (70-104); LIPASE < 50 U/L (73-393); POTASSIUM 3.3 MMOL/L (3.5-5.1); SODIUM 143 MMOL/L (135-145); TOTAL CARBON DIOXIDE 27.9 MMOL/L (24-32); TOTAL PROTEIN 6.1 G/DL (6.4-8.2); eGFR 76 ML/MIN
[2023-03-02] MEDS: antivenin, crotalidae fab inj 6 VIAL in normal saline 250ml IV soln 250 ML IV SCH ×4 (04:28→05:26)
[2023-03-02] MEDS ORDERED: potassium Cl 40MEQ/1/2NS 520ml 520 ML IV PRN (04:35)
[2023-03-02] MEDS ORDERED: mag hydrox/Alum hydrox/simeth 30ml oral suspension PO PRN (04:35)
[2023-03-02] MEDS ORDERED: magnesium hydroxide 30ml (MOM) UD suspension PO PRN (04:35)
[2023-03-02] MEDS ORDERED: magnesium 4gm in 100ml NS 100 ML IV PRN (04:35)
[2023-03-02] MEDS ORDERED: potassium Cl 20 mEq SR tablet PO PRN (04:35)
[2023-03-02] MEDS ORDERED: ondansetron/PF 4mg/2ml inj IV PRN (04:35)
[2023-03-02] MEDS ORDERED: magnesium 2GM in 50ml NS 50 ML IV PRN (04:35)
[2023-03-02] MEDS ORDERED: magnesium Cl slow-release 64mg tablet PO PRN (04:35)
[2023-03-02] MEDS ORDERED: acetaminophen 325mg tablet PO PRN (04:35)
--- NOTE | 2023-03-02 04:39 | NUR ---
dr. zeng called [facility] control
[2023-03-02 04:42] LABS: APTT 30 SECONDS (22-32)
[2023-03-02 04:49] LABS: D-DIMER < 0.19 MG/L FEU (0-0.50)
[2023-03-02] MEDS ORDERED: tetanus & diphtheria toxoid (Td) vaccine 0.5ml IMVAC ONE (05:35)
[2023-03-02] MEDS ORDERED: OMEP20CA16 PO (05:45)
[2023-03-02] MEDS ORDERED: AMLO-140 PO (05:45)
[2023-03-02] MEDS ORDERED: IBUP-1986 PO (05:45)
[2023-03-02] MEDS ORDERED: PREG50CA PO (05:45)
[2023-03-02] MEDS ORDERED: LINA145C PO (05:45)
[2023-03-02] MEDS ORDERED: ZOLP12.543 PO (05:45)
--- NOTE | 2023-03-02 05:48 | NUR ---
RIGHT ANKLE MEASUREMENTS 0340- 10.5 " 0356- 10.5" 0404- 14" 0430- 14" 0450- 13" 4898- 12"
[2023-03-02] MEDS ORDERED: LACT1CAP26 PO (05:53)
[2023-03-02] MEDS ORDERED: MAGN250T11 PO (05:53)
[2023-03-02] MEDS ORDERED: VITA-268 PO (05:53)
[2023-03-02] MEDS ORDERED: TETanus/Pertussis (Acell)/Diphther VAC/PF (Tdap-Adult) 0.5ml syringe IMVAC ONE (05:55)
[2023-03-02 07:48] LABS: MAGNESIUM 1.6 MG/DL (1.5-2.4); POTASSIUM 3.4 MMOL/L (3.5-5.1)
--- NOTE | 2023-03-02 07:58 | NUR ---
Patient in room ED 5. I have received report from Claudia GARCIA and had the opportunity to ask questions and assume patient care.
[2023-03-02] MEDS: K and/or MAG REPLACEMENT MC SCH ×2 (08:00→20:00)
[2023-03-02] MEDS: docusate sod 100mg capsule PO SCH ×2 (08:00→20:36)
[2023-03-02 10:18] LABS: BASOPHILS # (AUTO) 0.1 X10'3 (0-0.2); BASOPHILS % (AUTO) 0.8 % (0-1); EOSINOPHILS # (AUTO) 0.2 X10'3 (0-0.9); EOSINOPHILS % (AUTO) 1.8 % (0-6); HEMATOCRIT 42.6 % (42.0-52.0); HEMOGLOBIN 14.2 g/dl (14.0-17.9); LYMPHOCYTES # (AUTO) 2.8 X10'3 (1.1-4.8); LYMPHOCYTES % (AUTO) 33.7 % (21-51); MEAN CORPUSCULAR HGB CONC 33.2 g/dL (33.0-36.5); MEAN CORPUSCULAR VOLUME 81.2 FL (78-98); MEAN PLATELET VOLUME 7.5 FL (7.4-10.4); MONOCYTES # (AUTO) 0.8 X10'3 (0-0.9); MONOCYTES % (AUTO) 9.3 % (2-12); NEUTROPHILS # (AUTO) 4.6 X10'3 (1.8-7.7); NEUTROPHILS % (AUTO) 54.4 % (42-75); PLATELET COUNT 147 X10'3 (140-440); RED BLOOD COUNT 5.25 X10'6 (4.70-6.10); RED CELL DISTRIBUTION WIDTH 15.5 % (11.5-14.5); WHITE BLOOD COUNT 8.4 X10'3 (4.5-11.0)
[2023-03-02] MEDS ORDERED: non-formulary drug (Adalimumab (Humira) 1 SYR) SUBCUT SCH (10:45)
[2023-03-02] MEDS: potassium Cl 20 mEq SR tablet PO PRN ×3 (11:03→20:34)
[2023-03-02] MEDS ORDERED: ibuprofen 200mg tablet PO PRN (11:50)
[2023-03-02] MEDS ORDERED: naphazoline/pheniramine eye 1 DROP BOTTLE EACHEYE PRN (11:50)
[2023-03-02] MEDS ORDERED: zolpidem 5mg tablet PO PRN (11:55)
[2023-03-02] MEDS ORDERED: EZET-88 (12:25)
[2023-03-02] MEDS: baclofen 10mg tablet PO SCH ×2 (13:45→20:36)
--- NOTE | 2023-03-02 15:14 | NUR ---
Spoke with poison control, gave update on labs and edema measurements. Poison control recommending continue to monitor patient 24hrs from last dose of crofab, continue Q6H labs, and edema measurements Q2H.
[2023-03-02 17:12] LABS: BASOPHILS # (AUTO) 0.1 X10'3 (0-0.2); BASOPHILS % (AUTO) 0.7 % (0-1); EOSINOPHILS # (AUTO) 0.1 X10'3 (0-0.9); EOSINOPHILS % (AUTO) 1.5 % (0-6); HEMATOCRIT 42.2 % (42.0-52.0); HEMOGLOBIN 14.2 g/dl (14.0-17.9); LYMPHOCYTES # (AUTO) 1.9 X10'3 (1.1-4.8); MEAN CORPUSCULAR HEMOGLOBIN 27.2 PG (27.0-31.0); MEAN CORPUSCULAR HGB CONC 33.6 g/dL (33.0-36.5); MEAN PLATELET VOLUME 8.3 FL (7.4-10.4); MONOCYTES # (AUTO) 0.8 X10'3 (0-0.9); MONOCYTES % (AUTO) 9.3 % (2-12); NEUTROPHILS # (AUTO) 5.4 X10'3 (1.8-7.7); NEUTROPHILS % (AUTO) 65.5 % (42-75); PLATELET COUNT 148 X10'3 (140-440); RED BLOOD COUNT 5.21 X10'6 (4.70-6.10); RED CELL DISTRIBUTION WIDTH 15.4 % (11.5-14.5); WHITE BLOOD COUNT 8.3 X10'3 (4.5-11.0)
--- NOTE | 2023-03-02 18:22 | NUR ---
Problems reprioritized. Patient report given, questions answered & plan of care reviewed with Akosua GARCIA.
--- NOTE | 2023-03-02 18:30 | NUR ---
Patient in room ICU 2045. I have received report from Frances GARCIA and had the opportunity to ask questions and assume patient care.
[2023-03-02 19:51] LABS: ALANINE AMINOTRANSFERASE 20 U/L (12-78); ALBUMIN 3.6 G/DL (3.4-5.0); ALKALINE PHOSPHATASE 52 IU/L (46-116); ANION GAP 6 (8-16); ASPARTATE AMINO TRANSFERASE 15 U/L (10-37); BILIRUBIN,TOTAL 1.1 MG/DL (0.1-1.0); BLOOD UREA NITROGEN 22 MG/DL (7-18); BUN/CREATININE RATIO 19.5 (10.0-20.0); CALCIUM 8.9 MG/DL (8.5-10.1); CHLORIDE 107 MMOL/L (99-107); CREATININE 1.13 MG/DL (0.60-1.10); GLUCOSE 115 MG/DL (70-104); MAGNESIUM 1.7 MG/DL (1.5-2.4); PHOSPHORUS 4.8 MG/DL (2.3-4.5); POTASSIUM 4.4 MMOL/L (3.5-5.1); SODIUM 144 MMOL/L (135-145); TOTAL CARBON DIOXIDE 31.4 MMOL/L (24-32); TOTAL PROTEIN 7.3 G/DL (6.4-8.2); eGFR 63 ML/MIN
[2023-03-02] MEDS: OMEGA-3/DHA/EPA/FISH OIL 1 EACH CAPSULE.DR PO SCH (20:35)
[2023-03-02] MEDS ORDERED: pregabalin 25mg capsule PO SCH (21:00)
[2023-03-02] MEDS ORDERED: amLODIPine 5mg tablet PO SCH (21:00)
[2023-03-02] MEDS ORDERED: lisinopril 20mg tablet PO SCH (21:00)
[2023-03-02 21:56] LABS: BASOPHILS # (AUTO) 0.1 X10'3 (0-0.2); BASOPHILS % (AUTO) 0.7 % (0-1); EOSINOPHILS # (AUTO) 0.1 X10'3 (0-0.9); EOSINOPHILS % (AUTO) 1.7 % (0-6); HEMOGLOBIN 14.4 g/dl (14.0-17.9); LYMPHOCYTES # (AUTO) 1.9 X10'3 (1.1-4.8); LYMPHOCYTES % (AUTO) 25.3 % (21-51); MEAN CORPUSCULAR HEMOGLOBIN 27.3 PG (27.0-31.0); MEAN CORPUSCULAR HGB CONC 33.6 g/dL (33.0-36.5); MEAN CORPUSCULAR VOLUME 81.2 FL (78-98); MEAN PLATELET VOLUME 7.6 FL (7.4-10.4); MONOCYTES # (AUTO) 0.7 X10'3 (0-0.9); MONOCYTES % (AUTO) 8.9 % (2-12); NEUTROPHILS # (AUTO) 4.9 X10'3 (1.8-7.7); NEUTROPHILS % (AUTO) 63.4 % (42-75); PLATELET COUNT 154 X10'3 (140-440); WHITE BLOOD COUNT 7.7 X10'3 (4.5-11.0)
[2023-03-03] VITALS (9 sets, daily range): BP systolic 129–165; BP diastolic 59–88
--- NOTE | 2023-03-03 06:00 | NUR ---
Patient in room ICU 2045. I have received report from Akosua GARCIA and had the opportunity to ask questions and assume patient care.
[2023-03-03 06:10] LABS: BASOPHILS # (AUTO) 0.1 X10'3 (0-0.2); BASOPHILS % (AUTO) 0.7 % (0-1); EOSINOPHILS # (AUTO) 0.1 X10'3 (0-0.9); EOSINOPHILS % (AUTO) 1.6 % (0-6); HEMATOCRIT 39.6 % (42.0-52.0); HEMOGLOBIN 13.5 g/dl (14.0-17.9); LYMPHOCYTES # (AUTO) 2.8 X10'3 (1.1-4.8); LYMPHOCYTES % (AUTO) 33.6 % (21-51); MEAN CORPUSCULAR HEMOGLOBIN 27.7 PG (27.0-31.0); MEAN CORPUSCULAR HGB CONC 34.2 g/dL (33.0-36.5); MEAN CORPUSCULAR VOLUME 80.9 FL (78-98); MONOCYTES # (AUTO) 0.8 X10'3 (0-0.9); NEUTROPHILS # (AUTO) 4.7 X10'3 (1.8-7.7); NEUTROPHILS % (AUTO) 55.1 % (42-75); PLATELET COUNT 145 X10'3 (140-440); RED BLOOD COUNT 4.89 X10'6 (4.70-6.10); RED CELL DISTRIBUTION WIDTH 15.8 % (11.5-14.5); WHITE BLOOD COUNT 8.5 X10'3 (4.5-11.0)
--- NOTE | 2023-03-03 06:13 | NUR ---
Problems reprioritized. Patient report given, questions answered & plan of care reviewed with Frances GARCIA.
[2023-03-03 06:22] LABS: ALBUMIN 3.1 G/DL (3.4-5.0); ANION GAP 5 (8-16); BLOOD UREA NITROGEN 19 MG/DL (7-18); BUN/CREATININE RATIO 21.6 (10.0-20.0); CALCIUM 8.8 MG/DL (8.5-10.1); CHLORIDE 108 MMOL/L (99-107); CREATININE 0.88 MG/DL (0.60-1.10); GLUCOSE 127 MG/DL (70-104); MAGNESIUM 1.7 MG/DL (1.5-2.4); POTASSIUM 3.7 MMOL/L (3.5-5.1); SODIUM 142 MMOL/L (135-145); eGFR 84 ML/MIN
[2023-03-03] MEDS ORDERED: pantoprazole 40mg Tablet.DR PO SCH (07:30)
[2023-03-03] MEDS: K and/or MAG REPLACEMENT MC SCH (07:34)
[2023-03-03] MEDS ORDERED: TURMERIC PO SCH (08:00)
[2023-03-03] MEDS ORDERED: tamsulosin 0.4mg capsule PO SCH (08:00)
[2023-03-03] MEDS ORDERED: non-formulary drug (Magnesium Oxide (Magnesium) 1 TAB) PO SCH (08:00)
[2023-03-03] MEDS ORDERED: lactobacillus rhamnosus 10,000 MMU CELLS/CAPSULE PO SCH (08:00)
[2023-03-03] MEDS ORDERED: TURMERIC ROOT EXTRACT PO SCH (08:00)
[2023-03-03] MEDS ORDERED: vitamin B comp w/Vit. C tab 1 TAB TABLET PO SCH (08:00)
[2023-03-03] MEDS ORDERED: ascorbic acid 500mg tablet PO SCH (08:00)
[2023-03-03] MEDS ORDERED: CHOLECALCIFEROL PO SCH (08:00)
[2023-03-03] MEDS ORDERED: multivitamins, therapeutics tablet PO SCH (08:00)
[2023-03-03] MEDS ORDERED: folic acid 0.4mg tablet PO SCH (08:00)
[2023-03-03] MEDS: docusate sod 100mg capsule PO SCH (08:08)
[2023-03-03] MEDS: OMEGA-3/DHA/EPA/FISH OIL 1 EACH CAPSULE.DR PO SCH (08:09)
[2023-03-03] MEDS: baclofen 10mg tablet PO SCH (08:09)
--- NOTE | 2023-03-03 09:13 | NUR ---
Poison control stated pt is cleared from their standpoint and is okay to discharge home and to followup with PCP in 2-3days.
[2023-03-03 09:55] LABS: BASOPHILS # (AUTO) 0.1 X10'3 (0-0.2); BASOPHILS % (AUTO) 0.9 % (0-1); EOSINOPHILS # (AUTO) 0.2 X10'3 (0-0.9); EOSINOPHILS % (AUTO) 2.5 % (0-6); HEMATOCRIT 40.6 % (42.0-52.0); HEMOGLOBIN 13.7 g/dl (14.0-17.9); LYMPHOCYTES # (AUTO) 2.6 X10'3 (1.1-4.8); LYMPHOCYTES % (AUTO) 35.3 % (21-51); MEAN CORPUSCULAR HEMOGLOBIN 27.4 PG (27.0-31.0); MEAN CORPUSCULAR HGB CONC 33.7 g/dL (33.0-36.5); MEAN CORPUSCULAR VOLUME 81.4 FL (78-98); MEAN PLATELET VOLUME 7.6 FL (7.4-10.4); MONOCYTES # (AUTO) 0.8 X10'3 (0-0.9); MONOCYTES % (AUTO) 10.2 % (2-12); NEUTROPHILS # (AUTO) 3.8 X10'3 (1.8-7.7); NEUTROPHILS % (AUTO) 51.1 % (42-75); PLATELET COUNT 144 X10'3 (140-440); RED BLOOD COUNT 4.98 X10'6 (4.70-6.10); RED CELL DISTRIBUTION WIDTH 16.1 % (11.5-14.5); WHITE BLOOD COUNT 7.4 X10'3 (4.5-11.0)
--- NOTE | 2023-03-03 13:21 | NUR ---
Discharge instructions gone over with patient and at bedside. Patient was given the opportunity to ask questions. All belongings sent with pt. Wheelchair to front lobby.
[2023-03-03] MEDS ORDERED: REMOVE & WASTE BUTRANS PATCH DOCUMENTATION TD SCH (18:45)
[2023-03-03] MEDS ORDERED: fentaNYL 50MCG/HOUR patch.TD72 TD SCH (19:00)
[2023-03-11] MEDS ORDERED: ADALIMUMAB SUBCUT SCH (08:00)
== END 2023-03-03 13:15 | disposition home or self-care (01) | DRG 918 ==
LOC: ER 03:11 → ED HOLD 04:37 → ICU 2S 08:22
PROVIDERS: ADMIT Internal Medicine Critical Care Medicine; ATTEND Internal Medicine Critical Care Medicine
PROC: 3E0234Z Introduction of Serum, Toxoid and Vaccine into Muscle, Percutaneous Approach (ICD-10-PCS; principal; 2023-03-02)
DX: T63.011A Toxic effect of rattlesnake venom, accidental (unintentional), initial encounter (principal); E78.00 Pure hypercholesterolemia, unspecified; M54.9 Dorsalgia, unspecified; I10 Essential (primary) hypertension; M79.671 Pain in right foot; G89.29 Other chronic pain; I48.91 Unspecified atrial fibrillation; Z79.01 Long term (current) use of anticoagulants; Z79.899 Other long term (current) drug therapy; Y92.89 Other specified places as the place of occurrence of the external cause; Z90.49 Acquired absence of other specified parts of digestive tract; Z23 Encounter for immunization; Z91.041 Radiographic dye allergy status
CPT/HCPCS: 36415; 71045; 80048; 80053; 83605; 83690; 83735; 84100; 84132; 85025; 85379; 85384; 85610; 85730; 87040; 87081; 90715; 99285; A6212; G0378; J0840; J7050

== ENCOUNTER 2023-03-08 00:57 | Emergency (ER) | payer BC ==
[~2023-03-08] VITALS: Ht 185.4 cm; Wt 102.0 kg
[~2023-03-08 00:57] MED LIST changes: +AMLO-140 PO; -AMLO-363 PO; -CALC200T PO; -DOXE150C2 PO; -DULO-31 PO; +EZET-88; -FENO145T26 PO; +IBUP-1986 PO; -LACT10SO78 RC; +LACT1CAP26 PO; +MAGN250T11 PO; -METH2.5T PO; -OLOP5DRO26 LEFTEYE; +OMEP20CA16 PO; -OMEP40CA21 PO; +PREG50CA PO; +VITA-268 PO; +ZOLP12.543 PO
[2023-03-08 01:01] VITALS: BP 168/99
[2023-03-08 02:16] LABS: BASOPHILS % (AUTO) 0.7 % (0-1); EOSINOPHILS # (AUTO) 0.2 X10'3 (0-0.9); EOSINOPHILS % (AUTO) 2.5 % (0-6); HEMATOCRIT 39.1 % (42.0-52.0); HEMOGLOBIN 13.2 g/dl (14.0-17.9); LYMPHOCYTES # (AUTO) 2.5 X10'3 (1.1-4.8); LYMPHOCYTES % (AUTO) 39.8 % (21-51); MEAN CORPUSCULAR HEMOGLOBIN 27.5 PG (27.0-31.0); MEAN CORPUSCULAR HGB CONC 33.8 g/dL (33.0-36.5); MEAN CORPUSCULAR VOLUME 81.3 FL (78-98); MONOCYTES # (AUTO) 0.7 X10'3 (0-0.9); MONOCYTES % (AUTO) 11.3 % (2-12); NEUTROPHILS # (AUTO) 2.9 X10'3 (1.8-7.7); NEUTROPHILS % (AUTO) 45.7 % (42-75); PLATELET COUNT 143 X10'3 (140-440); RED BLOOD COUNT 4.82 X10'6 (4.70-6.10); RED CELL DISTRIBUTION WIDTH 16.1 % (11.5-14.5); WHITE BLOOD COUNT 6.3 X10'3 (4.5-11.0)
[2023-03-08 02:28] LABS: ALANINE AMINOTRANSFERASE 23 U/L (12-78); ALBUMIN 3.4 G/DL (3.4-5.0); ALBUMIN/GLOBULIN RATIO 1.1 (1.1-1.5); ALKALINE PHOSPHATASE 48 IU/L (46-116); ANION GAP 6 (8-16); ASPARTATE AMINO TRANSFERASE 14 U/L (10-37); BILIRUBIN,TOTAL 0.6 MG/DL (0.1-1.0); BLOOD UREA NITROGEN 23 MG/DL (7-18); BUN/CREATININE RATIO 27.4 (10.0-20.0); CALCIUM 8.7 MG/DL (8.5-10.1); CHLORIDE 109 MMOL/L (99-107); CREATININE 0.84 MG/DL (0.60-1.10); GLUCOSE 97 MG/DL (70-104); POTASSIUM 3.8 MMOL/L (3.5-5.1); SODIUM 144 MMOL/L (135-145); TOTAL CARBON DIOXIDE 29.1 MMOL/L (24-32); TOTAL PROTEIN 6.4 G/DL (6.4-8.2); eGFR 88 ML/MIN
--- NOTE | 2023-03-08 03:18 | NUR ---
MEASUREMENT ON RIGHT ANKLE, 10.0 INCHES.
== END 2023-03-08 03:27 | disposition home or self-care (01) ==
LOC: ER 00:58
DX: T63.011A Toxic effect of rattlesnake venom, accidental (unintentional), initial encounter (principal); M79.89 Other specified soft tissue disorders; R60.0 Localized edema; I11.9 Hypertensive heart disease without heart failure; E78.00 Pure hypercholesterolemia, unspecified; G89.29 Other chronic pain; Y92.89 Other specified places as the place of occurrence of the external cause
CPT/HCPCS: 36415; 80053; 85025; 85384; 85610; 99283

== ENCOUNTER 2023-03-20 03:33 | Emergency (ER) | payer OTHER, BC ==
[~2023-03-20] VITALS: Ht 182.9 cm; Wt 97.0 kg
[2023-03-20 05:08] VITALS: BP 127/64
[2023-03-20] MEDS ORDERED: ketorolac trometh. 30mg/ml inj. IM ONE (05:30)
[2023-03-20] MEDS ORDERED: morphine 4 MG/ML inj SYRINge IM ONE (05:30)
== END 2023-03-20 05:47 | disposition home or self-care (01) ==
LOC: ER 03:33
DX: G89.29 Other chronic pain (principal); M54.59 Other low back pain; E78.00 Pure hypercholesterolemia, unspecified; I11.9 Hypertensive heart disease without heart failure; Z88.6 Allergy status to analgesic agent; Z79.899 Other long term (current) drug therapy; Z79.1 Long term (current) use of non-steroidal anti-inflammatories (NSAID); Z79.2 Long term (current) use of antibiotics
CPT/HCPCS: 96372; 99284; J1885; J2270

== ENCOUNTER 2023-03-21 00:24 | Inpatient (IN) | payer BC, OTHER ==
[~2023-03-21] VITALS: Ht 185.4 cm; Wt 108.4 kg
[2023-03-21] VITALS (12 sets, daily range): BP systolic 106–156; BP diastolic 53–88
[2023-03-21] MEDS ORDERED: LORazepam 2 mg/ml vial IV ONE ×2 (01:00→11:20)
--- NOTE | 2023-03-21 01:15 | NUR ---
Pt continues to fight staff and pull on lines. Soft restraints ineffective. Pt put in 4 point hard restraints. CSM intact in all extremeties.
[2023-03-21] MEDS ORDERED: morphine 4 MG/ML inj SYRINge IV ONE (01:20)
[2023-03-21] MEDS ORDERED: morphine 4 MG/ML inj SYRINge ONE (01:20)
[2023-03-21 01:31] LABS: BASOPHILS # (AUTO) 0.1 X10'3 (0-0.2); BASOPHILS % (AUTO) 1.2 % (0-1); EOSINOPHILS # (AUTO) 0.1 X10'3 (0-0.9); EOSINOPHILS % (AUTO) 1.3 % (0-6); HEMATOCRIT 40.5 % (42.0-52.0); HEMOGLOBIN 13.6 g/dl (14.0-17.9); LYMPHOCYTES # (AUTO) 2.3 X10'3 (1.1-4.8); LYMPHOCYTES % (AUTO) 25.6 % (21-51); MEAN CORPUSCULAR HEMOGLOBIN 27.2 PG (27.0-31.0); MEAN CORPUSCULAR HGB CONC 33.6 g/dL (33.0-36.5); MONOCYTES # (AUTO) 0.7 X10'3 (0-0.9); MONOCYTES % (AUTO) 8.1 % (2-12); NEUTROPHILS # (AUTO) 5.8 X10'3 (1.8-7.7); NEUTROPHILS % (AUTO) 63.8 % (42-75); PLATELET COUNT 153 X10'3 (140-440); RED BLOOD COUNT 5.01 X10'6 (4.70-6.10); RED CELL DISTRIBUTION WIDTH 15.9 % (11.5-14.5); WHITE BLOOD COUNT 9.1 X10'3 (4.5-11.0)
[2023-03-21 02:18] LABS: ALANINE AMINOTRANSFERASE 34 U/L (12-78); ALBUMIN 3.8 G/DL (3.4-5.0); ALBUMIN/GLOBULIN RATIO 1.3 (1.1-1.5); ALKALINE PHOSPHATASE 47 IU/L (46-116); ANION GAP 11 (8-16); ASPARTATE AMINO TRANSFERASE 37 U/L (10-37); BILIRUBIN,TOTAL 1.1 MG/DL (0.1-1.0); BLOOD UREA NITROGEN 22 MG/DL (7-18); BUN/CREATININE RATIO 23.9 (10.0-20.0); CALCIUM 8.8 MG/DL (8.5-10.1); CHLORIDE 109 MMOL/L (99-107); CREATINE KINASE 668 U/L (39-308); CREATININE 0.92 MG/DL (0.60-1.10); ETHANOL < 0.010 GM/DL (0.0-0.010); GLUCOSE 142 MG/DL (70-104); POTASSIUM 4.2 MMOL/L (3.5-5.1); SODIUM 144 MMOL/L (135-145); TOTAL CARBON DIOXIDE 24.4 MMOL/L (24-32); TOTAL PROTEIN 6.8 G/DL (6.4-8.2); eGFR 79 ML/MIN
[2023-03-21] MEDS ORDERED: normal saline 1000ML IV soln IVB ONE (02:25)
[2023-03-21] MEDS ORDERED: fentaNYL/PF 50MCG/1 ML 2ML syringe IV ONE ×2 (02:25→17:15)
[2023-03-21] MEDS ORDERED: fentaNYL/PF 50MCG/1 ML 2ML syringe ONE (02:26)
--- NOTE | 2023-03-21 02:45 | NUR ---
Fentanyl 100 mcg removed from omnicell emergently. Fentanyl 50 mcg administered via IV per md order. Remaining 50 mcg wasted with Renetta GARCIA.
[2023-03-21] MEDS ORDERED: dexmedetomidin/NS 400mcg/100ml 100 ML IV SCH ×2 (02:55→12:40)
--- NOTE | 2023-03-21 05:10 | NUR ---
Pt taken to CT with Precedex IV.
--- NOTE | 2023-03-21 05:31 | NUR ---
All restraints removed after CT, and Precedex decreased. Pt once again became combative. Pt returned to 4 point restraints.
[2023-03-21] MEDS ORDERED: normal saline 1000ml 1,000 ML IV SCH (05:55)
[2023-03-21] MEDS ORDERED: bisacodyl 10mg suppository rectal RC PRN (05:55)
[2023-03-21] MEDS ORDERED: ondansetron/PF 4mg/2ml inj IV PRN (05:55)
[2023-03-21] MEDS ORDERED: ipratropium/albuterol 3ml nebule NEB PRN (05:55)
[2023-03-21] MEDS ORDERED: diphenhydrAMINE 50 mg/ml inj IV PRN (05:55)
[2023-03-21] MEDS ORDERED: acetaminophen 325mg tablet PO PRN ×2 (05:55)
[2023-03-21] MEDS ORDERED: HYDROcodone/acetaminophen 10/325mg tab PO PRN (05:55)
[2023-03-21] MEDS ORDERED: diphenhydrAMINE 25mg capsule PO PRN (05:55)
[2023-03-21] MEDS ORDERED: morphine 2 MG/ML inj. syringe IV PRN ×2 (05:55)
[2023-03-21] MEDS ORDERED: ondansetron 4mg rapidly disintigrating tab PO PRN (05:55)
[2023-03-21] MEDS ORDERED: mag hydrox/Alum hydrox/simeth 30ml oral suspension PO PRN (05:55)
[2023-03-21] MEDS ORDERED: HYDROmorphone/PF 0.2 MG/ML SYRINGE IV PRN (05:55)
[2023-03-21] MEDS ORDERED: magnesium hydroxide 30ml (MOM) UD suspension PO PRN (05:55)
[2023-03-21] MEDS ORDERED: HYDROcodone/acetaminophen 5mg/325mg tablet PO PRN (05:55)
[2023-03-21] MEDS ORDERED: lactulose 20gm/30ml cup PO PRN (06:00)
--- NOTE | 2023-03-21 06:30 | NUR ---
PT ON PRECEDEX AT THIS TIME, 4 POINT RESTRAINTS REMOVED
[2023-03-21 07:51] LABS: APTT 28 SECONDS (22-32)
[2023-03-21 07:58] LABS: MAGNESIUM 1.9 MG/DL (1.5-2.4); PHOSPHORUS 4.1 MG/DL (2.3-4.5)
[2023-03-21] MEDS ORDERED: rocuronium 10mg/ml inj IV ONE (08:00)
[2023-03-21] MEDS: lactulose 20gm/30ml cup PO SCH ×3 (08:00→21:53)
[2023-03-21] MEDS: docusate sod 100mg capsule PO SCH ×2 (08:00→20:00)
[2023-03-21] MEDS ORDERED: doxycycline inj 100 MG in normal saline 100ml IV soln 100 ML IV SCH (08:00)
[2023-03-21] MEDS: furosemide 20 MG/2 ML vial IV SCH ×2 (08:00→21:53)
[2023-03-21] MEDS ORDERED: etomidate 2mg/ml inj. ONE (08:00)
[2023-03-21 08:41] LABS: HEMOGLOBIN A1C 6.3 % (4.5-6.2)
--- NOTE | 2023-03-21 09:30 | NUR ---
WILL TITRATE PRECEDEX DOWN IN ORDER TO DC THE MED PER DR BENDER VERBAL ORDER
--- NOTE | 2023-03-21 09:58 | NUR ---
TITRATED PRECEDEX TO THE STARTING DOSE OF 0.2MCG/KG/HR
--- NOTE | 2023-03-21 10:29 | NUR ---
WILL DISCONTINUE PRECEDEX AT THIS TIME PER DR BENDER VERBAL ORDER. CRN IS AWARE
--- NOTE | 2023-03-21 11:15 | NUR ---
PT WAS FOUND ON THE FLOOR BY ER STAFF, PT WAS RETURNED TO THE BED AND RE APPLIED THE 4 POINT RESTRAINTS, 2MG IV ATIVAN WERE ORDERED BY DR BENDER WHO ALSO ORDERED PT TO HAVE PRECEDEX RE ADMINISTERED BY TITRATION. WILL COMPLETE AN OCCURENCE REPORT
[2023-03-21] MEDS ORDERED: LORazepam 2 mg/ml vial ONE (11:20)
--- NOTE | 2023-03-21 11:28 | NUR ---
4 POINT RESTRAINTS REMOVED
--- NOTE | 2023-03-21 11:45 | NUR ---
WILL TITRATE PRECEDEX AT THIS TIME FROM THE STARTING DOSE OF 0.2MCG/KG UP TO 0.4MCG/KG PER PROTOCOL
[2023-03-21] MEDS ORDERED: ziprasidone IM 20mg inj **IM only IM PRN (11:50)
[2023-03-21] MEDS ORDERED: ziprasidone IM 20mg inj **IM only IM ONE (11:50)
[2023-03-21] MEDS ORDERED: Lactulose Enema **for rectal use only RC ONE ×2 (11:50)
[2023-03-21 13:03] LABS: CLARITY,URINE CLEAR (Clear); COLOR,URINE YELLOW (Yellow); GLUCOSE, URINE NEGATIVE (Neg); KETONES,URINE NEGATIVE (Neg); LEUKOCYTE ESTERASE ,URINE NEGATIVE (Neg); NITRITES, URINE NEGATIVE (Neg); OCCULT BLOOD,URINE MODERATE (Neg); PH,URINE 5.5 (4.8-8.0); PROTEIN,URINE TRACE mg/dl (Neg); UROBILINOGEN,URINE 0.2 E.U/dL (0.2-1.0)
[2023-03-21 13:07] LABS: UA COLLECTION TYPE FOLEY CATH
[2023-03-21 13:08] LABS: BACTERIA,URINE NONE SEEN /HPF (Neg); MUCUS STRANDS NONE SEEN /LPF (Neg); SQUAMOUS EPITHELIAL CELL,UR NONE SEEN /LPF (FEW); WBC,URINE 0-4 /HPF (0-4)
--- NOTE | 2023-03-21 14:05 | NUR ---
lactulose is unavailable in the ER omni, pharmacy will deliver shortly.
--- NOTE | 2023-03-21 14:16 | NUR ---
titrated precedex up from 0.4mcg to 0.6mcg per protocol
[2023-03-21 14:44] LABS: BASOPHILS % (AUTO) 0.4 % (0-1); EOSINOPHILS % (AUTO) 0.2 % (0-6); HEMATOCRIT 39.6 % (42.0-52.0); HEMOGLOBIN 13.1 g/dl (14.0-17.9); MEAN CORPUSCULAR HEMOGLOBIN 27.1 PG (27.0-31.0); MEAN CORPUSCULAR HGB CONC 33.1 g/dL (33.0-36.5); MEAN PLATELET VOLUME 8.6 FL (7.4-10.4); MONOCYTES # (AUTO) 1.1 X10'3 (0-0.9); MONOCYTES % (AUTO) 9.8 % (2-12); NEUTROPHILS # (AUTO) 7.6 X10'3 (1.8-7.7); NEUTROPHILS % (AUTO) 70.6 % (42-75); PLATELET COUNT 130 X10'3 (140-440); RED BLOOD COUNT 4.84 X10'6 (4.70-6.10); RED CELL DISTRIBUTION WIDTH 16.3 % (11.5-14.5); WHITE BLOOD COUNT 10.7 X10'3 (4.5-11.0)
[2023-03-21 14:45] LABS: ALANINE AMINOTRANSFERASE 31 U/L (12-78); ALBUMIN 3.2 G/DL (3.4-5.0); ALBUMIN/GLOBULIN RATIO 1.1 (1.1-1.5); ALKALINE PHOSPHATASE 44 IU/L (46-116); ANION GAP 8 (8-16); ASPARTATE AMINO TRANSFERASE 32 U/L (10-37); BILIRUBIN,TOTAL 0.9 MG/DL (0.1-1.0); BLOOD UREA NITROGEN 22 MG/DL (7-18); CALCIUM 8.1 MG/DL (8.5-10.1); CHLORIDE 113 MMOL/L (99-107); CREATINE KINASE 782 U/L (39-308); CREATININE 0.71 MG/DL (0.60-1.10); GLUCOSE 128 MG/DL (70-104); POTASSIUM 4.3 MMOL/L (3.5-5.1); SODIUM 145 MMOL/L (135-145); TOTAL CARBON DIOXIDE 24.2 MMOL/L (24-32); TOTAL PROTEIN 6.2 G/DL (6.4-8.2); eGFR > 90 ML/MIN
--- NOTE | 2023-03-21 14:47 | NUR ---
TITRATED PRECEDEX TO 0.8MCG/KG PER PROTOCOL
[2023-03-21 15:27] LABS: LACTIC SEPSIS 2.3 MMOL/L (0.4-2.0)
--- NOTE | 2023-03-21 15:43 | NUR ---
pt intubated, 8 tube, 24 at the bottom teeth, pos color change, and pos breath sounds.
[2023-03-21] MEDS ORDERED: MESSAGE TO PHARMACY PO ONE (15:55)
[2023-03-21] MEDS ORDERED: DEXTROSE 15 GM of carb/4 tabs (each vial/BOTTLE has 4 tablets) PO PRN ×2 (15:55)
[2023-03-21] MEDS ORDERED: insulin Lispro (HumaLOG) vial - multi-dose SQ SCH (15:55)
[2023-03-21] MEDS ORDERED: glucagon, human recombinant 1mg kit SUBCUT PRN (15:55)
[2023-03-21] MEDS ORDERED: dextrose 50%-water 50ml dispensing syringe IV PRN ×2 (15:55)
[2023-03-21] MEDS ORDERED: ringers solution, lacted 1,000 ML IV ONE (16:15)
[2023-03-21 16:59] LABS: ABG BASE EXCESS -1.5 mmol/L (-2.0-2.0); ABG HCO3 22.6 mmol/L (22.0-26.0); ABG OXYGEN SATURATION 94.8 % (94-97); ABG PCO2 (T) 35.1 mmHg (35.0-48.0); ABG PO2 (T) 73.9 mmHg (75.0-100.0); ALLEN'S TEST POSITIVE; FCOHb 0.5 % (0.0-3.9); FMetHb 0.1 % (0.0-1.5); FO2Hb 94.2 % (94-97); PATIENT TEMPERATURE 36.3; PEEP 5 cm H2O; RESPIRATORY RATE 16 b/min; TIDAL VOLUME 525 mL; TOTAL HEMOGLOBIN 14.4 G/dl (14.0-17.9)
[2023-03-21] MEDS ORDERED: fentaNYL/PF 50MCG/1 ML 2ML syringe IV STA (17:06)
[2023-03-21] MEDS ORDERED: fentaNYL 50mcg/ml PF inj. 2,500 MCG in normal saline 250ml IV soln 200 ML IV SCH (17:10)
[2023-03-21] MEDS: FENTANYL-0.9 % NACL/PF 100 ML IV PRN ×2 (17:35→23:04)
[2023-03-21] MEDS ORDERED: midazolam 100mg in NS 100ml 100 ML IV ONE ×2 (18:45→18:55)
[2023-03-21] MEDS ORDERED: ringers solution, lacted 1,000 ML IV SCH (18:45)
[2023-03-21] MEDS ORDERED: midazolam 1 mg/ML 2ml injection ONE (18:47)
[2023-03-21] MEDS ORDERED: atropine 1 MG/1 ML vial IV PRN (19:35)
[2023-03-21] MEDS ORDERED: atropine 0.1mg/ml 10ml syringe ONE (19:52)
[2023-03-21] MEDS: piperacillin/tazo 4.5gm/100ml 100 ML IV SCH (19:57)
[2023-03-21] MEDS ORDERED: DOPamine 400mg/D5W 250ml 250 ML IV ONE (20:51)
[2023-03-21] MEDS ORDERED: temazepam 15mg capsule PO PRN (21:00)
[2023-03-21] MEDS: DOPamine 400mg/D5W 250ml 250 ML IV SCH (21:01)
[2023-03-21] MEDS: VANCOMYCIN 1,500MG inj. 1,500 MG in normal saline 500ml IV soln 300 ML IV SCH (21:53)
[2023-03-21] MEDS ORDERED: magnesium 2GM in 50ml NS 50 ML IV PRN (22:50)
[2023-03-21] MEDS ORDERED: magnesium 4gm in 100ml NS 100 ML IV PRN (22:50)
[2023-03-22] VITALS (33 sets, daily range): BP systolic 93–139; BP diastolic 46–87
[2023-03-22] MEDS ORDERED: piperacillin/tazo 4.5gm/100ml 100 ML IV SCH
[2023-03-22] MEDS: piperacillin/tazo 4.5gm/100ml 100 ML IV SCH ×4 (00:18→23:56)
[2023-03-22 03:37] LABS: BASOPHILS # (AUTO) 0.1 X10'3 (0-0.2); BASOPHILS % (AUTO) 0.4 % (0-1); EOSINOPHILS # (AUTO) 0.1 X10'3 (0-0.9); EOSINOPHILS % (AUTO) 0.5 % (0-6); HEMATOCRIT 43.5 % (42.0-52.0); HEMOGLOBIN 14.1 g/dl (14.0-17.9); LYMPHOCYTES # (AUTO) 2.2 X10'3 (1.1-4.8); LYMPHOCYTES % (AUTO) 17.4 % (21-51); MEAN CORPUSCULAR HEMOGLOBIN 26.9 PG (27.0-31.0); MEAN CORPUSCULAR HGB CONC 32.5 g/dL (33.0-36.5); MEAN CORPUSCULAR VOLUME 82.6 FL (78-98); MEAN PLATELET VOLUME 7.7 FL (7.4-10.4); MONOCYTES # (AUTO) 1.8 X10'3 (0-0.9); MONOCYTES % (AUTO) 13.9 % (2-12); NEUTROPHILS # (AUTO) 8.6 X10'3 (1.8-7.7); NEUTROPHILS % (AUTO) 67.8 % (42-75); PLATELET COUNT 142 X10'3 (140-440); RED BLOOD COUNT 5.26 X10'6 (4.70-6.10); RED CELL DISTRIBUTION WIDTH 16.2 % (11.5-14.5); WHITE BLOOD COUNT 12.7 X10'3 (4.5-11.0)
[2023-03-22 03:48] LABS: ABG BASE EXCESS 5.9 mmol/L (-2.0-2.0); ABG HCO3 29.1 mmol/L (22.0-26.0); ABG OXYGEN SATURATION 96.3 % (94-97); ABG PCO2 (T) 36.8 mmHg (35.0-48.0); ABG PO2 (T) 83.4 mmHg (75.0-100.0); ALLEN'S TEST Modified; FCOHb 0.5 % (0.0-3.9); FMetHb 0.1 % (0.0-1.5); FO2Hb 95.7 % (94-97); PATIENT TEMPERATURE 36.6; PEEP 5 cm H2O; RESPIRATORY RATE 14 b/min; TIDAL VOLUME 525 mL; TOTAL HEMOGLOBIN 14.1 G/dl (14.0-17.9)
[2023-03-22 03:54] LABS: ALANINE AMINOTRANSFERASE 35 U/L (12-78); ALBUMIN 3.2 G/DL (3.4-5.0); ALBUMIN/GLOBULIN RATIO 1.1 (1.1-1.5); ALKALINE PHOSPHATASE 49 IU/L (46-116); ANION GAP 9 (8-16); ASPARTATE AMINO TRANSFERASE 41 U/L (10-37); BILIRUBIN,TOTAL 1.6 MG/DL (0.1-1.0); BLOOD UREA NITROGEN 17 MG/DL (7-18); CALCIUM 8.2 MG/DL (8.5-10.1); CHLORIDE 106 MMOL/L (99-107); CHOL/HDL RATIO 1.8 (0.00-4.99); CHOLESTEROL 79 MG/DL (0-200); CREATININE 0.85 MG/DL (0.60-1.10); GLUCOSE 108 MG/DL (70-104); HDL CHOLESTEROL 45 MG/DL (35-60); LDL CHOLESTEROL 27 MG/DL (50-100); MAGNESIUM 1.5 MG/DL (1.5-2.4); POTASSIUM 3.4 MMOL/L (3.5-5.1); SODIUM 144 MMOL/L (135-145); TOTAL CARBON DIOXIDE 28.6 MMOL/L (24-32); TOTAL PROTEIN 6.2 G/DL (6.4-8.2); TRIGLYCERIDES 130 MG/DL (20-135); eGFR 87 ML/MIN
[2023-03-22] MEDS: potassium Cl 40MEQ/1/2NS 520ml 520 ML IV PRN ×2 (04:56→20:41)
[2023-03-22] MEDS ORDERED: lansoprazole 15mg solutab PO SCH (07:30)
[2023-03-22] MEDS ORDERED: docusate sodium 100mg/10ml UD cup PO SCH (07:44)
[2023-03-22] MEDS: K and/or MAG REPLACEMENT MC SCH (08:00)
[2023-03-22] MEDS ORDERED: midazolam 100mg in NS 100ml 100 ML IV SCH (08:00)
[2023-03-22] MEDS: furosemide 20 MG/2 ML vial IV SCH ×2 (08:19→19:27)
[2023-03-22] MEDS: docusate sodium 100mg/10ml UD cup PO SCH ×2 (08:20→19:26)
[2023-03-22] MEDS: VANCOMYCIN 1,500MG inj. 1,500 MG in normal saline 500ml IV soln 300 ML IV SCH (08:21)
--- NOTE | 2023-03-22 08:49 | NUR ---
piv 22g to the right inner fa
[2023-03-22] MEDS: DOPamine 400mg/D5W 250ml 250 ML IV SCH ×2 (09:04→19:46)
[2023-03-22] MEDS ORDERED: tetrahydrozoline 0.05% 15ml ophthalmic drops EACHEYE PRN (10:15)
--- NOTE | 2023-03-22 10:30 | NUR ---
Initial: Pt intubated admit DX AMS possible hepatic encephalopathy, respiratory failure due to AMS, RLL PNA, pneumobilia, lactic acidosis, hyperammonemia, mild rhabdomyolysis, and s/p fall per EMR. Pt DX new onset DM though A1C only 6.3% this admit per EMR. Currently NPO w/ OG in place MAP 77 this AM; TF recs below in case to start. Will monitor for further nutrition intervention needs this admit. Rec: 1. IF TF; Vital HP at 90ml/hr would provide 2160ml volume/day, 2160 kcals, 1806ml water, and 189g protein. 2. IF TF; additional water flush 100ml Q4H 3. IF TF; PALB Q / 4. consider resumption of routine MVI, B complex, and folic acid since on home meds list per physician discretion 5. routine bowel care 6. daily wt Addendum: 03/22/23 at [address] Amended: Links added. Addendum: 03/23/23 at [address] CORRECTION: Rajani CALDERON in place
[2023-03-22] MEDS: FENTANYL-0.9 % NACL/PF 100 ML IV PRN ×2 (10:35→16:08)
[2023-03-22] MEDS: pantoprazole 40MG/NS 100ML BAG 100 ML IV SCH ×2 (10:36→19:46)
--- NOTE | 2023-03-22 12:35 | NUR ---
0700- Pt opens eyes and can squeeze hands, unable to tell if it is to command or due to level of agitation. Requiring more sedation to keep calm. 0800- Febrile, esophageal probe inserted, max temp noted 38.5. Antibiotics continue. 1000- critical care rounds, Start protonix Bid for blood in MD KVNG to review med rec, nutrition to start tomorrow perhaps.
[2023-03-22] MEDS: vancomycin/NS 1 GM ADD-VANTAGE 250 ML IV SCH (19:25)
[2023-03-22] MEDS: enoxaparin 40mg/0.4ml syringe SUBCUT SCH (19:26)
[2023-03-22] MEDS ORDERED: fentaNYL 50mcg/ml PF inj. 2,500 MCG in normal saline 250ml IV soln 200 ML IV PRN (20:30)
[2023-03-22] MEDS ORDERED: pantoprazole 40MG/NS 100ML BAG 100 ML IV SCH (21:00)
[2023-03-23] VITALS (32 sets, daily range): BP systolic 91–165; BP diastolic 37–78
[2023-03-23] MEDS: FENTANYL-0.9 % NACL/PF 100 ML IV PRN (01:42)
[2023-03-23] MEDS: fentaNYL 50mcg/ml PF inj. 2,500 MCG in normal saline 250ml IV soln 200 ML IV PRN ×2 (01:43→18:42)
[2023-03-23] MEDS ORDERED: propofol 1000mg/100ml bottle 100 ML IV ONE (02:07)
[2023-03-23] MEDS ORDERED: propofol 1000mg/100ml bottle 100 ML IV SCH (02:10)
[2023-03-23] MEDS: propofol 1000mg/100ml bottle 100 ML IV SCH ×3 (02:33→21:35)
[2023-03-23 02:48] LABS: BASOPHILS # (AUTO) 0.1 X10'3 (0-0.2); BASOPHILS % (AUTO) 0.7 % (0-1); EOSINOPHILS # (AUTO) 0.2 X10'3 (0-0.9); EOSINOPHILS % (AUTO) 1.6 % (0-6); HEMOGLOBIN 13.1 g/dl (14.0-17.9); LYMPHOCYTES # (AUTO) 2.8 X10'3 (1.1-4.8); LYMPHOCYTES % (AUTO) 26.9 % (21-51); MEAN CORPUSCULAR HEMOGLOBIN 27.4 PG (27.0-31.0); MEAN CORPUSCULAR HGB CONC 33.7 g/dL (33.0-36.5); MEAN CORPUSCULAR VOLUME 81.3 FL (78-98); MEAN PLATELET VOLUME 8.1 FL (7.4-10.4); MONOCYTES # (AUTO) 1.3 X10'3 (0-0.9); MONOCYTES % (AUTO) 12.2 % (2-12); NEUTROPHILS % (AUTO) 58.6 % (42-75); PLATELET COUNT 131 X10'3 (140-440); RED BLOOD COUNT 4.79 X10'6 (4.70-6.10); RED CELL DISTRIBUTION WIDTH 16.3 % (11.5-14.5); WHITE BLOOD COUNT 10.3 X10'3 (4.5-11.0)
[2023-03-23 03:22] LABS: ABG BASE EXCESS 1.3 mmol/L (-2.0-2.0); ABG HCO3 26.9 mmol/L (22.0-26.0); ABG OXYGEN SATURATION 93.4 % (94-97); ABG PCO2 (T) 47.3 mmHg (35.0-48.0); ABG PO2 (T) 75.3 mmHg (75.0-100.0); ALLEN'S TEST Modified; FCOHb 0.2 % (0.0-3.9); FMetHb 0.1 % (0.0-1.5); FO2Hb 93.1 % (94-97); PATIENT TEMPERATURE 37.3; PEEP 5 cm H2O; RESPIRATORY RATE 12 b/min; TIDAL VOLUME 525 mL; TOTAL HEMOGLOBIN 12.5 G/dl (14.0-17.9)
[2023-03-23 03:47] LABS: ALANINE AMINOTRANSFERASE 35 U/L (12-78); ALBUMIN 2.9 G/DL (3.4-5.0); ALKALINE PHOSPHATASE 50 IU/L (46-116); ANION GAP 9 (8-16); ASPARTATE AMINO TRANSFERASE 30 U/L (10-37); BILIRUBIN,TOTAL 1.7 MG/DL (0.1-1.0); BLOOD UREA NITROGEN 25 MG/DL (7-18); BUN/CREATININE RATIO 19.1 (10.0-20.0); CALCIUM 7.9 MG/DL (8.5-10.1); CHLORIDE 108 MMOL/L (99-107); CREATININE 1.31 MG/DL (0.60-1.10); GLUCOSE 110 MG/DL (70-104); MAGNESIUM 1.6 MG/DL (1.5-2.4); POTASSIUM 3.4 MMOL/L (3.5-5.1); SODIUM 144 MMOL/L (135-145); TOTAL CARBON DIOXIDE 27.1 MMOL/L (24-32); TOTAL PROTEIN 5.8 G/DL (6.4-8.2); TRIGLYCERIDES 129 MG/DL (20-135); eGFR 53 ML/MIN
[2023-03-23] MEDS: potassium Cl 40MEQ/1/2NS 520ml 520 ML IV PRN ×2 (04:12→14:07)
--- NOTE | 2023-03-23 06:30 | NUR ---
Patient in room ICU 2041. I have received report from Jason Baron and had the opportunity to ask questions and assume patient care.
[2023-03-23] MEDS ORDERED: VANCOMYCIN LEVEL IV ONE (07:30)
[2023-03-23] MEDS ORDERED: ascorbic acid 500mg tablet PO SCH (08:00)
[2023-03-23] MEDS ORDERED: multivitamins, therapeutics tablet PO SCH (08:00)
[2023-03-23] MEDS: K and/or MAG REPLACEMENT MC SCH (08:00)
[2023-03-23 08:35] LABS: VANCOMYCIN,TROUGH 16.4 UG/ML (6.0-14.0)
[2023-03-23] MEDS: pantoprazole 40MG/NS 100ML BAG 100 ML IV SCH ×2 (09:01→20:14)
[2023-03-23] MEDS: piperacillin/tazo 4.5gm/100ml 100 ML IV SCH ×3 (09:03→23:52)
[2023-03-23] MEDS: vancomycin/NS 1 GM ADD-VANTAGE 250 ML IV SCH ×2 (09:03→20:14)
[2023-03-23] MEDS: docusate sodium 100mg/10ml UD cup PO SCH (09:03)
[2023-03-23] MEDS: furosemide 20 MG/2 ML vial IV SCH ×2 (09:03→20:14)
--- NOTE | 2023-03-23 10:00 | NUR ---
too patients yellow ring home
[2023-03-23] MEDS ORDERED: lactulose 20gm/30ml cup PO SCH (10:27)
--- NOTE | 2023-03-23 10:49 | NUR ---
Rounds note Labs, systems, drips, vent settings, and assessments reviewed new orders lactulose rectal tube if persistent diarrhea tube feed consult
[2023-03-23] MEDS ORDERED: acetaminophen 325mg/10.15ml oral unit dose solution NG PRN ×2 (11:19)
[2023-03-23] MEDS ORDERED: DEXTROSE 15 GM of carb/4 tabs (each vial/BOTTLE has 4 tablets) NG PRN ×2 (11:19→11:21)
[2023-03-23] MEDS ORDERED: diphenhydrAMINE 25 MG/10 ML UD oral solution NG PRN (11:22)
[2023-03-23] MEDS ORDERED: mag hydrox/Alum hydrox/simeth 30ml oral suspension NG PRN (11:22)
[2023-03-23] MEDS ORDERED: magnesium hydroxide 30ml (MOM) UD suspension NG PRN (11:23)
[2023-03-23] MEDS ORDERED: ondansetron 4mg/5ml UD cup NG PRN (11:24)
--- NOTE | 2023-03-23 11:57 | NUR ---
TF Consult: Pt remains intubated w/ TF to start today per MD w/ DX sepsis per MD note. Pt receiving Propofol visualized at 13.08ml/hr during rounds providing additional 345 kcals/day. TF recs below adjusted given Propofol rate; only able to meet ~91% minimum estimated protein needs without overfeeding given Propofol rate. Will monitor for EN tolerance and adjustment needs. Rec: 1. Given Propofol at 13.08ml/hr providing additional 345 kcals/day; Continuous TF per MD using Vital HP at 80ml/hr to provide 1920ml volume/day, 1920 kcals, 1605ml water, and 168g protein. 2. Monitor Propofol rate for EN adjustments; if Propofol at 5mcg/kg/min vs off Vital HP at 90ml/hr goal would provide 2160ml volume/day, 2160 kcals, 1806ml water, and 189g protein 3. additional water flush 100ml Q4H; monitor serum Na 4. PALB Q /; daily scaled wt 5. routine MVI per MD 6. routine bowel care Addendum: 03/23/23 at [address] Amended: Links added.
--- NOTE | 2023-03-23 12:58 | NUR ---
WOC NOTE: Consult placed for left anterior toe abrasion. WOC nurse was in the unit and asked wound RN to assess. WOC will not need to follow at this time as there are no open wounds that require treatment. Heels are floated, patient is turned Q2 hour and has no breakdown noted.
[2023-03-23] MEDS: lactulose 20gm/30ml cup NG SCH ×4 (14:07→23:52)
[2023-03-23] MEDS ORDERED: TEST75GE TOP (14:26)
[2023-03-23] MEDS ORDERED: ROSU40TA PO (14:26)
[2023-03-23] MEDS ORDERED: temazepam 15mg capsule NG PRN (15:15)
[2023-03-23] MEDS ORDERED: insulin regular, human U-100 3ml vial - multi-dose SQ SCH (15:42)
[2023-03-23 15:45] LABS: PREALBUMIN 18.3 MG/DL (19-36)
--- NOTE | 2023-03-23 18:05 | NUR ---
Problems reprioritized. Patient report given, questions answered & plan of care reviewed with Joao Baorn.
[2023-03-23] MEDS: docusate sodium 100mg/10ml UD cup NG SCH (20:14)
[2023-03-23] MEDS: enoxaparin 40mg/0.4ml syringe SUBCUT SCH (20:15)
[2023-03-24] VITALS (36 sets, daily range): BP systolic 100–187; BP diastolic 43–99
[2023-03-24] MEDS: propofol 1000mg/100ml bottle 100 ML IV SCH ×5 (02:37→22:29)
[2023-03-24 02:59] LABS: BASOPHILS % (AUTO) 0.5 % (0-1); EOSINOPHILS # (AUTO) 0.1 X10'3 (0-0.9); EOSINOPHILS % (AUTO) 1.1 % (0-6); HEMATOCRIT 39.3 % (42.0-52.0); LYMPHOCYTES # (AUTO) 1.7 X10'3 (1.1-4.8); LYMPHOCYTES % (AUTO) 21.1 % (21-51); MEAN CORPUSCULAR HEMOGLOBIN 27.1 PG (27.0-31.0); MEAN CORPUSCULAR HGB CONC 33.1 g/dL (33.0-36.5); MEAN CORPUSCULAR VOLUME 81.9 FL (78-98); MEAN PLATELET VOLUME 7.5 FL (7.4-10.4); MONOCYTES % (AUTO) 12.4 % (2-12); NEUTROPHILS # (AUTO) 5.1 X10'3 (1.8-7.7); NEUTROPHILS % (AUTO) 64.9 % (42-75); PLATELET COUNT 136 X10'3 (140-440); RED BLOOD COUNT 4.79 X10'6 (4.70-6.10); RED CELL DISTRIBUTION WIDTH 15.9 % (11.5-14.5); WHITE BLOOD COUNT 7.8 X10'3 (4.5-11.0)
[2023-03-24 03:15] LABS: ALANINE AMINOTRANSFERASE 28 U/L (12-78); ALBUMIN 2.7 G/DL (3.4-5.0); ALBUMIN/GLOBULIN RATIO 0.8 (1.1-1.5); ALKALINE PHOSPHATASE 48 IU/L (46-116); ANION GAP 7 (8-16); ASPARTATE AMINO TRANSFERASE 16 U/L (10-37); BILIRUBIN,TOTAL 1.3 MG/DL (0.1-1.0); BLOOD UREA NITROGEN 21 MG/DL (7-18); BUN/CREATININE RATIO 18.1 (10.0-20.0); CALCIUM 8.4 MG/DL (8.5-10.1); CHLORIDE 108 MMOL/L (99-107); CREATININE 1.16 MG/DL (0.60-1.10); GLUCOSE 151 MG/DL (70-104); MAGNESIUM 1.7 MG/DL (1.5-2.4); PHOSPHORUS 3.5 MG/DL (2.3-4.5); POTASSIUM 3.1 MMOL/L (3.5-5.1); SODIUM 145 MMOL/L (135-145); TOTAL CARBON DIOXIDE 29.9 MMOL/L (24-32); TOTAL PROTEIN 6.1 G/DL (6.4-8.2); TRIGLYCERIDES 138 MG/DL (20-135); eGFR 61 ML/MIN
--- NOTE | 2023-03-24 03:33 | NUR ---
Rounds done with tele MD. All therapies/labs/diagnostics done t/o the night reviewed. Only real input he had on the case was increasing his ALOC workup which is already noted in Dr. Mello's note (may get EEG/MRI today, Dr. Nagy added he'd recommend an LP). He thinks it's likely not hepatic in nature (at least alone) due to his ammonia being OK and him still not waking up. Could be immunosuppresive encephalitis, baclofen OD or withdrawl, NCSE, etc. No changes done tonight though. Nutrition reviewed and acceptable, has not met criteria for hyperglycemia protocol yet. MD to renew restraints.
[2023-03-24 03:37] LABS: ABG BASE EXCESS 4.9 mmol/L (-2.0-2.0); ABG HCO3 29.9 mmol/L (22.0-26.0); ABG OXYGEN SATURATION 94.1 % (94-97); ABG PCO2 (T) 45.3 mmHg (35.0-48.0); ABG PO2 (T) 73.9 mmHg (75.0-100.0); ALLEN'S TEST Modified; FCOHb 0.2 % (0.0-3.9); FMetHb 0.1 % (0.0-1.5); FO2Hb 93.8 % (94-97); PEEP 5 cm H2O; RESPIRATORY RATE 12 b/min; TIDAL VOLUME 525 mL; TOTAL HEMOGLOBIN 13.6 G/dl (14.0-17.9)
[2023-03-24] MEDS: lactulose 20gm/30ml cup NG SCH ×4 (04:05→20:18)
[2023-03-24] MEDS: potassium Cl 40MEQ/1/2NS 520ml 520 ML IV PRN (04:05)
[2023-03-24] MEDS: piperacillin/tazo 4.5gm/100ml 100 ML IV SCH ×2 (08:00→17:20)
[2023-03-24] MEDS: K and/or MAG REPLACEMENT MC SCH (08:00)
[2023-03-24] MEDS: MULTIVIT-MIN/FERROUS GLUCONATE 9 MG/15 ML LIQUID NG SCH (08:00)
[2023-03-24] MEDS: docusate sodium 100mg/10ml UD cup NG SCH ×2 (08:00→20:00)
[2023-03-24] MEDS: pantoprazole 40MG/NS 100ML BAG 100 ML IV SCH ×2 (08:00→20:17)
[2023-03-24] MEDS: vancomycin/NS 1 GM ADD-VANTAGE 250 ML IV SCH ×2 (08:00→20:17)
[2023-03-24] MEDS: ascorbic acid 500mg tablet NG SCH (08:00)
[2023-03-24] MEDS: furosemide 20 MG/2 ML vial IV SCH ×2 (08:00→20:18)
[2023-03-24] MEDS: FENTANYL-0.9 % NACL/PF 100 ML IV PRN ×2 (11:08→18:29)
--- NOTE | 2023-03-24 18:25 | NUR ---
Family in to see pt. SHITAL Rios updated with all care given and current trajectory pt is on. She's aware his FiO2 is down and if we are able to continue that trend and he can stay calm when off sedation may be a candidate to attempt extubation tomorrow assuming he does not have some other complication (i.e. ETOH withdrawl) Addendum: 03/24/23 at 1934 by Eduard Mckeon RN ERROR WRONG PATIENT. This note is not for Antonio Terry.
[2023-03-24] MEDS: enoxaparin 40mg/0.4ml syringe SUBCUT SCH (20:18)
--- NOTE | 2023-03-24 23:30 | NUR ---
Rounds done with tele MD. Reviewed all therapies and assessment data. Nothing to really add as the pt's neuro status is slowly improving. If this plateaus or pt backslides with his neuro exam, again, EEG/MRI suggested regarding pt's prolonged AMS. Nutrition reviewed and acceptable, pt has not yet met hyperglycemia protocol. MD to renew restraints.
[2023-03-25] VITALS (28 sets, daily range): BP systolic 99–201; BP diastolic 49–95
[2023-03-25] MEDS: piperacillin/tazo 4.5gm/100ml 100 ML IV SCH ×3 (00:11→15:28)
[2023-03-25] MEDS: FENTANYL-0.9 % NACL/PF 100 ML IV PRN ×2 (01:19→08:24)
[2023-03-25] MEDS: lactulose 20gm/30ml cup NG SCH ×4 (02:15→20:17)
[2023-03-25 02:39] LABS: BASOPHILS # (AUTO) 0.1 X10'3 (0-0.2); BASOPHILS % (AUTO) 1.1 % (0-1); EOSINOPHILS # (AUTO) 0.2 X10'3 (0-0.9); EOSINOPHILS % (AUTO) 2.3 % (0-6); HEMATOCRIT 36.3 % (42.0-52.0); LYMPHOCYTES # (AUTO) 1.6 X10'3 (1.1-4.8); LYMPHOCYTES % (AUTO) 20.5 % (21-51); MEAN CORPUSCULAR HEMOGLOBIN 27.1 PG (27.0-31.0); MEAN CORPUSCULAR HGB CONC 33.1 g/dL (33.0-36.5); MEAN PLATELET VOLUME 7.7 FL (7.4-10.4); MONOCYTES # (AUTO) 1.1 X10'3 (0-0.9); MONOCYTES % (AUTO) 13.2 % (2-12); NEUTROPHILS # (AUTO) 5.1 X10'3 (1.8-7.7); NEUTROPHILS % (AUTO) 62.9 % (42-75); PLATELET COUNT 134 X10'3 (140-440); RED BLOOD COUNT 4.42 X10'6 (4.70-6.10); RED CELL DISTRIBUTION WIDTH 15.8 % (11.5-14.5)
[2023-03-25 02:49] LABS: ALANINE AMINOTRANSFERASE 19 U/L (12-78); ALBUMIN 2.2 G/DL (3.4-5.0); ALBUMIN/GLOBULIN RATIO 0.6 (1.1-1.5); ALKALINE PHOSPHATASE 40 IU/L (46-116); ANION GAP 9 (8-16); ASPARTATE AMINO TRANSFERASE 12 U/L (10-37); BILIRUBIN,TOTAL 0.9 MG/DL (0.1-1.0); BLOOD UREA NITROGEN 21 MG/DL (7-18); CALCIUM 8.1 MG/DL (8.5-10.1); CHLORIDE 109 MMOL/L (99-107); GLUCOSE 125 MG/DL (70-104); MAGNESIUM 1.6 MG/DL (1.5-2.4); PHOSPHORUS 3.6 MG/DL (2.3-4.5); SODIUM 147 MMOL/L (135-145); TOTAL CARBON DIOXIDE 28.7 MMOL/L (24-32); TOTAL PROTEIN 5.6 G/DL (6.4-8.2); eGFR 72 ML/MIN
[2023-03-25] MEDS: potassium Cl 40MEQ/1/2NS 520ml 520 ML IV PRN ×2 (03:42→08:24)
[2023-03-25 03:57] LABS: ABG BASE EXCESS 4.1 mmol/L (-2.0-2.0); ABG HCO3 28.8 mmol/L (22.0-26.0); ABG OXYGEN SATURATION 91.8 % (94-97); ABG PCO2 (T) 43.8 mmHg (35.0-48.0); ABG PO2 (T) 65.8 mmHg (75.0-100.0); ALLEN'S TEST Modified; FCOHb 0.1 % (0.0-3.9); FMetHb 0.3 % (0.0-1.5); FO2Hb 91.4 % (94-97); PATIENT TEMPERATURE 37.2; PEEP 5 cm H2O; RESPIRATORY RATE 12 b/min; TIDAL VOLUME 525 mL; TOTAL HEMOGLOBIN 12.9 G/dl (14.0-17.9)
[2023-03-25] MEDS: propofol 1000mg/100ml bottle 100 ML IV SCH ×2 (03:57→08:23)
--- NOTE | 2023-03-25 06:30 | NUR ---
Received report from RADHA Shepherd
[2023-03-25] MEDS: docusate sodium 100mg/10ml UD cup NG SCH ×2 (06:48→20:00)
[2023-03-25] MEDS: pantoprazole 40MG/NS 100ML BAG 100 ML IV SCH ×2 (08:00→20:17)
[2023-03-25] MEDS: vancomycin/NS 1 GM ADD-VANTAGE 250 ML IV SCH ×2 (08:25→20:17)
[2023-03-25] MEDS: ascorbic acid 500mg tablet NG SCH (08:29)
[2023-03-25] MEDS: MULTIVIT-MIN/FERROUS GLUCONATE 9 MG/15 ML LIQUID NG SCH (08:29)
[2023-03-25] MEDS: furosemide 20 MG/2 ML vial IV SCH ×2 (08:29→20:16)
--- NOTE | 2023-03-25 10:56 | NUR ---
Reassessment: Pt previously tolerating TF at goal rate with GRV WNL however pt extubated this morning so now NPO. Recommend BSS with ST for diet advancement. Pt continues with a rectal tube in place, documented with 600 mL stool output 03/24 per I&O. Will continue to follow closely and make recommendations as appropriate. Recommendations: 1. Advance to regular diet as medically indicated; BSS with ST 2. Monitor need for ONS/additional protein with diet advancement 3. Routine MVM with Iron and Vitamin C per MD 4. Bowel care per MD Addendum: 03/25/23 at [address] Amended: Links added.
[2023-03-25] MEDS ORDERED: amLODIPine 5mg tablet PO SCH (11:02)
[2023-03-25] MEDS ORDERED: lisinopril 20mg tablet PO SCH (11:04)
[2023-03-25] MEDS: dexamethasone sod phosphate 10mg/ml inj IV SCH ×3 (11:43→20:15)
[2023-03-25] MEDS: fentaNYL 50MCG/HOUR patch.TD72 TD SCH (11:47)
[2023-03-25] MEDS: dexmedetomidin/NS 400mcg/100ml 100 ML IV SCH ×2 (13:03→19:38)
--- NOTE | 2023-03-25 18:30 | NUR ---
Patient in room ICU 2041. I have received report from Zoya GARCIA and had the opportunity to ask questions and assume patient care.
[2023-03-25] MEDS: lisinopril 20mg tablet NG SCH (20:16)
[2023-03-25] MEDS: amLODIPine 5mg tablet NG SCH (20:16)
[2023-03-25] MEDS: enoxaparin 40mg/0.4ml syringe SUBCUT SCH (20:17)
[2023-03-25] MEDS ORDERED: BENAZEPRIL PO SCH (21:00)
[2023-03-25] MEDS ORDERED: AMLODIPINE PO SCH (21:00)
[2023-03-25] MEDS ORDERED: [UNRECOGNIZED DRUG - OTHER] PO SCH (21:00)
[2023-03-26] VITALS (24 sets, daily range): BP systolic 116–181; BP diastolic 49–115
[2023-03-26] MEDS: piperacillin/tazo 4.5gm/100ml 100 ML IV SCH ×3 (00:33→15:57)
[2023-03-26] MEDS: lactulose 20gm/30ml cup NG SCH ×4 (01:19→20:35)
[2023-03-26] MEDS: dexamethasone sod phosphate 10mg/ml inj IV SCH ×2 (01:19→08:44)
[2023-03-26] MEDS: dexmedetomidin/NS 400mcg/100ml 100 ML IV SCH (02:46)
[2023-03-26 06:23] LABS: BASOPHILS % (AUTO) 0.4 % (0-1); EOSINOPHILS % (AUTO) 0 % (0-6); HEMATOCRIT 38.5 % (42.0-52.0); LYMPHOCYTES # (AUTO) 1.1 X10'3 (1.1-4.8); LYMPHOCYTES % (AUTO) 14.9 % (21-51); MEAN CORPUSCULAR HEMOGLOBIN 27.1 PG (27.0-31.0); MEAN CORPUSCULAR HGB CONC 33.7 g/dL (33.0-36.5); MEAN CORPUSCULAR VOLUME 80.4 FL (78-98); MONOCYTES # (AUTO) 0.5 X10'3 (0-0.9); MONOCYTES % (AUTO) 6.5 % (2-12); NEUTROPHILS # (AUTO) 5.7 X10'3 (1.8-7.7); NEUTROPHILS % (AUTO) 78.2 % (42-75); PLATELET COUNT 149 X10'3 (140-440); RED CELL DISTRIBUTION WIDTH 15.7 % (11.5-14.5); WHITE BLOOD COUNT 7.3 X10'3 (4.5-11.0)
[2023-03-26 06:37] LABS: ALANINE AMINOTRANSFERASE 22 U/L (12-78); ALBUMIN 2.4 G/DL (3.4-5.0); ALBUMIN/GLOBULIN RATIO 0.6 (1.1-1.5); ALKALINE PHOSPHATASE 45 IU/L (46-116); ANION GAP 10 (8-16); ASPARTATE AMINO TRANSFERASE 26 U/L (10-37); BILIRUBIN,TOTAL 1.1 MG/DL (0.1-1.0); BLOOD UREA NITROGEN 26 MG/DL (7-18); BUN/CREATININE RATIO 26.8 (10.0-20.0); CALCIUM 8.7 MG/DL (8.5-10.1); CHLORIDE 105 MMOL/L (99-107); CREATININE 0.97 MG/DL (0.60-1.10); GLUCOSE 202 MG/DL (70-104); MAGNESIUM 1.7 MG/DL (1.5-2.4); SODIUM 144 MMOL/L (135-145); TOTAL CARBON DIOXIDE 28.9 MMOL/L (24-32); TOTAL PROTEIN 6.5 G/DL (6.4-8.2); TRIGLYCERIDES 91 MG/DL (20-135); eGFR 75 ML/MIN
[2023-03-26 06:41] LABS: POTASSIUM 3.9 MMOL/L (3.5-5.1)
--- NOTE | 2023-03-26 07:52 | NUR ---
Pt jumped out of bed, RT saw him and had him sit back in bed. Pt incontinent of stool, rectal tube pulled partially out. Pt and bed cleaned up. Pt placed in chair after rectal tube removed. Pt had sitter at start of shift and but was pulled to another floor.
[2023-03-26] MEDS: furosemide 20 MG/2 ML vial IV SCH ×2 (08:43→20:34)
[2023-03-26] MEDS: docusate sodium 100mg/10ml UD cup NG SCH ×2 (08:43→20:35)
[2023-03-26] MEDS: MULTIVIT-MIN/FERROUS GLUCONATE 9 MG/15 ML LIQUID NG SCH (08:43)
[2023-03-26] MEDS: ascorbic acid 500mg tablet NG SCH (08:44)
[2023-03-26] MEDS: pantoprazole 40MG/NS 100ML BAG 100 ML IV SCH ×2 (08:45→20:35)
[2023-03-26] MEDS: vancomycin/NS 1 GM ADD-VANTAGE 250 ML IV SCH ×2 (08:46→21:30)
[2023-03-26] MEDS: apixaban 5mg tablet PO SCH ×2 (11:11→20:34)
--- NOTE | 2023-03-26 18:39 | NUR ---
Report off to Kristina GARCIA
[2023-03-26] MEDS: lisinopril 20mg tablet NG SCH (20:35)
[2023-03-26] MEDS: amLODIPine 5mg tablet NG SCH (20:36)
[2023-03-26] MEDS ORDERED: acetaminophen 325mg tablet PO PRN (21:55)
[2023-03-27] VITALS (15 sets, daily range): BP systolic 139–171; BP diastolic 64–102
[2023-03-27] MEDS: piperacillin/tazo 4.5gm/100ml 100 ML IV SCH ×3 (01:05→16:00)
[2023-03-27] MEDS: lactulose 20gm/30ml cup NG SCH ×2 (02:00→07:46)
--- NOTE | 2023-03-27 06:40 | NUR ---
Problems reprioritized. Patient report given, questions answered & plan of care reviewed with Nirav GARCIA.
[2023-03-27] MEDS: pantoprazole 40MG/NS 100ML BAG 100 ML IV SCH (07:45)
[2023-03-27] MEDS: furosemide 20 MG/2 ML vial IV SCH (07:45)
[2023-03-27] MEDS: vancomycin/NS 1 GM ADD-VANTAGE 250 ML IV SCH (07:45)
[2023-03-27] MEDS: docusate sodium 100mg/10ml UD cup NG SCH (07:46)
[2023-03-27] MEDS: apixaban 5mg tablet PO SCH (07:46)
[2023-03-27] MEDS: ascorbic acid 500mg tablet NG SCH (07:46)
[2023-03-27] MEDS: MULTIVIT-MIN/FERROUS GLUCONATE 9 MG/15 ML LIQUID NG SCH (07:46)
[2023-03-27] MEDS ORDERED: amLODIPine 5mg tablet PO SCH (07:54)
[2023-03-27] MEDS ORDERED: DEXTROSE 15 GM of carb/4 tabs (each vial/BOTTLE has 4 tablets) PO PRN ×2 (07:54→07:55)
[2023-03-27] MEDS ORDERED: ascorbic acid 500mg tablet PO SCH (07:54)
[2023-03-27] MEDS ORDERED: acetaminophen 325mg tablet PO PRN (07:54)
[2023-03-27] MEDS ORDERED: docusate sod 100mg capsule PO SCH (07:55)
[2023-03-27] MEDS ORDERED: diphenhydrAMINE 25 MG/10 ML UD oral solution PO PRN (07:55)
[2023-03-27] MEDS ORDERED: mag hydrox/Alum hydrox/simeth 30ml oral suspension PO PRN (07:56)
[2023-03-27] MEDS ORDERED: lisinopril 20mg tablet PO SCH (07:56)
[2023-03-27] MEDS ORDERED: temazepam 15mg capsule PO PRN (07:58)
[2023-03-27] MEDS ORDERED: magnesium hydroxide 30ml (MOM) UD suspension PO PRN (07:59)
[2023-03-27] MEDS: lactulose 20gm/30ml cup PO SCH ×2 (08:00→14:00)
[2023-03-27] MEDS ORDERED: multivitamins, therapeutics tablet PO SCH (08:00)
[2023-03-27] MEDS ORDERED: ondansetron 4mg rapidly disintigrating tab NG PRN (08:00)
[2023-03-27] MEDS: fentaNYL 50MCG/HOUR patch.TD72 TD SCH (08:02)
[2023-03-27 08:28] LABS: BASOPHILS % (AUTO) 0.2 % (0-1); EOSINOPHILS % (AUTO) 0 % (0-6); HEMATOCRIT 43.5 % (42.0-52.0); HEMOGLOBIN 14.5 g/dl (14.0-17.9); LYMPHOCYTES # (AUTO) 2.3 X10'3 (1.1-4.8); LYMPHOCYTES % (AUTO) 20.9 % (21-51); MEAN CORPUSCULAR HGB CONC 33.2 g/dL (33.0-36.5); MEAN CORPUSCULAR VOLUME 81.3 FL (78-98); MEAN PLATELET VOLUME 7.9 FL (7.4-10.4); MONOCYTES # (AUTO) 0.8 X10'3 (0-0.9); MONOCYTES % (AUTO) 7.2 % (2-12); NEUTROPHILS % (AUTO) 71.7 % (42-75); PLATELET COUNT 209 X10'3 (140-440); RED BLOOD COUNT 5.36 X10'6 (4.70-6.10); RED CELL DISTRIBUTION WIDTH 16.1 % (11.5-14.5); WHITE BLOOD COUNT 11.1 X10'3 (4.5-11.0)
[2023-03-27 09:46] LABS: ANION GAP 12 (8-16); BLOOD UREA NITROGEN 32 MG/DL (7-18); BUN/CREATININE RATIO 27.8 (10.0-20.0); CALCIUM 9.2 MG/DL (8.5-10.1); CHLORIDE 104 MMOL/L (99-107); CREATININE 1.15 MG/DL (0.60-1.10); GLUCOSE 132 MG/DL (70-104); SODIUM 147 MMOL/L (135-145); TOTAL CARBON DIOXIDE 30.7 MMOL/L (24-32); eGFR 61 ML/MIN
[2023-03-27 09:47] LABS: POTASSIUM 2.9 MMOL/L (3.5-5.1)
[2023-03-27] MEDS ORDERED: potassium Cl 20 mEq SR tablet PO STA ×2 (10:01→13:15)
[2023-03-27] MEDS ORDERED: potassium Cl 20mEq/100mL bag 100 ML IV SCH (10:05)
[2023-03-27] MEDS ORDERED: potassium Cl 40MEQ/1/2NS 520ml 520 ML IV PRN (10:10)
--- NOTE | 2023-03-27 16:04 | NUR ---
Pt being discharged.
[2023-03-27] MEDS ORDERED: LACT10SO78 PO (16:13)
[2023-03-27] MEDS ORDERED: POTA-207 PO (16:13)
[2023-03-27] MEDS ORDERED: AMOX-580 PO (16:13)
[2023-03-27] MEDS ORDERED: FURO-150 PO (16:13)
--- NOTE | 2023-03-27 18:01 | NUR ---
Pt discharged in stable condition with belongings. Educated on discharge instructions. New RX x [address] [facility] pharmacy.
== END 2023-03-27 17:08 | disposition home or self-care (01) | DRG 871 ==
LOC: ER 00:26 → ED HOLD 06:00 → ICU 2S 16:28
PROVIDERS: ADMIT Family Medicine; ATTEND Family Medicine
PROC: 5A1945Z Respiratory Ventilation, 24-96 Consecutive Hours (ICD-10-PCS; 2023-03-21)
PROC: 0BH17EZ Insertion of Endotracheal Airway into Trachea, Via Natural or Artificial Opening (ICD-10-PCS; 2023-03-21)
PROC: 5A0935A Assistance with Respiratory Ventilation, Less than 24 Consecutive Hours, High Flow/Velocity Cannula (ICD-10-PCS; principal; 2023-03-25)
DX: A41.9 Sepsis, unspecified organism (principal); G92.8 Other toxic encephalopathy; J69.0 Pneumonitis due to inhalation of food and vomit; J96.01 Acute respiratory failure with hypoxia; I50.33 Acute on chronic diastolic (congestive) heart failure; E72.20 Disorder of urea cycle metabolism, unspecified; M62.82 Rhabdomyolysis; I42.0 Dilated cardiomyopathy; D84.9 Immunodeficiency, unspecified; I11.0 Hypertensive heart disease with heart failure; E78.00 Pure hypercholesterolemia, unspecified; E87.6 Hypokalemia; G89.4 Chronic pain syndrome; I48.91 Unspecified atrial fibrillation; Y92.230 Patient room in hospital as the place of occurrence of the external cause; K21.9 Gastro-esophageal reflux disease without esophagitis; W06.XXXA Fall from bed, initial encounter; K74.60 Unspecified cirrhosis of liver; K76.82 Hepatic encephalopathy; M54.50 Low back pain, unspecified; E11.65 Type 2 diabetes mellitus with hyperglycemia; R00.1 Bradycardia, unspecified; T40.415A Adverse effect of fentanyl or fentanyl analogs, initial encounter; L40.50 Arthropathic psoriasis, unspecified; N40.0 Benign prostatic hyperplasia without lower urinary tract symptoms; Z78.1 Physical restraint status; Z79.01 Long term (current) use of anticoagulants; Z79.84 Long term (current) use of oral hypoglycemic drugs; Z79.891 Long term (current) use of opiate analgesic; Z79.899 Other long term (current) drug therapy; Z90.49 Acquired absence of other specified parts of digestive tract; Z91.041 Radiographic dye allergy status; Y93.89 Activity, other specified; Y99.8 Other external cause status; T50.995A Adverse effect of other drugs, medicaments and biological substances, initial encounter
CPT/HCPCS: 36415; 36600; 70450; 71045; 74176; 80048; 80053; 80061; 80202; 80320; 81001; 82140; 82550; 82803; 82948; 83036; 83605; 83735; 83880; 84100; 84132; 84134; 84145; 84478; 84484; 85018; 85025; 85379; 85610; 85730; 87040; 87070; 87081; 92508; 92616; 93005; 93306; 94002; 94003; 94640; 94760; 94799; 97110; 97116; 97161; 97530; 99285; A4615; A5200; A6213; A6250; A6446; C9113; G0378; J0461; J1100; J1265; J1650; J1815; J1940; J2060; J2250; J2270; J2543; J2704; J3010; J3370; J3480; J3486; J3490; J7030; J7040; J7050; J7120; J7121

== ENCOUNTER 2023-05-14 08:19 | Day surgery (SDC) | payer BC ==
[~2023-05-14] VITALS: Ht 182.9 cm; Wt 105.1 kg
[2023-05-14] VITALS (18 sets, daily range): BP systolic 133–157; BP diastolic 61–85; PULSE 65–76; RESP 12–16; O2SAT 93–97
[~2023-05-14 08:19] MED LIST changes: +AMOX-580 PO; -BACL20TA PO; -EZET-88; -FENT1PAT10 TD; +FURO-150 PO; -IBUP-1986 PO; +LACT10SO78 PO; +ROSU40TA PO; +TEST75GE TOP; -ZOLP12.543 PO
[2023-05-14 10:23] LABS: BASOPHILS % (AUTO) 0.7 % (0-1); EOSINOPHILS # (AUTO) 0.1 X10'3 (0-0.9); EOSINOPHILS % (AUTO) 2.3 % (0-6); HEMATOCRIT 39.8 % (42.0-52.0); HEMOGLOBIN 13.3 g/dl (14.0-17.9); LYMPHOCYTES # (AUTO) 2.4 X10'3 (1.1-4.8); LYMPHOCYTES % (AUTO) 38.2 % (21-51); MEAN CORPUSCULAR HEMOGLOBIN 27.2 PG (27.0-31.0); MEAN CORPUSCULAR HGB CONC 33.4 g/dL (33.0-36.5); MEAN CORPUSCULAR VOLUME 81.4 FL (78-98); MEAN PLATELET VOLUME 7.5 FL (7.4-10.4); MONOCYTES # (AUTO) 0.6 X10'3 (0-0.9); MONOCYTES % (AUTO) 9.6 % (2-12); NEUTROPHILS # (AUTO) 3.1 X10'3 (1.8-7.7); NEUTROPHILS % (AUTO) 49.2 % (42-75); PLATELET COUNT 142 X10'3 (140-440); RED BLOOD COUNT 4.89 X10'6 (4.70-6.10); RED CELL DISTRIBUTION WIDTH 16.8 % (11.5-14.5); WHITE BLOOD COUNT 6.3 X10'3 (4.5-11.0)
[2023-05-14] MEDS ORDERED: BACL20TA PO (10:28)
[2023-05-14] MEDS ORDERED: ibuprofen (10:28)
[2023-05-14] MEDS ORDERED: FENT1PAT10 (10:28)
[2023-05-14] MEDS ORDERED: ZOLP12.543 PO (10:28)
[2023-05-14] MEDS ORDERED: gelatin sponge, absorbable (Gelfoam 12-7MM) sponge TP ONE (11:38)
[2023-05-14] MEDS ORDERED: fentaNYL/PF 50MCG/1 ML 2ML syringe IV ONE (11:45)
[2023-05-14] MEDS ORDERED: midazolam 1 mg/ML 2ml injection IV ONE (11:45)
[2023-05-14] MEDS ORDERED: fentaNYL/PF 50MCG/1 ML 2ML syringe IV STA (11:48)
[2023-05-14] MEDS ORDERED: fentaNYL/PF 50MCG/1 ML 2ML syringe ONE (11:48)
[2023-05-14] MEDS ORDERED: HYDROcodone/acetaminophen 5mg/325mg tablet PO PRN ×2 (12:40)
== END 2023-05-14 15:30 | disposition home or self-care (01) ==
LOC: SSTAY O 08:19
PROVIDERS: ATTEND Radiology Vascular & Interventional Radiology
DX: K76.0 Fatty (change of) liver, not elsewhere classified (principal); K74.00 Hepatic fibrosis, unspecified; G89.29 Other chronic pain; I48.91 Unspecified atrial fibrillation; I11.0 Hypertensive heart disease with heart failure; I50.30 Unspecified diastolic (congestive) heart failure; I27.20 Pulmonary hypertension, unspecified; K21.9 Gastro-esophageal reflux disease without esophagitis; N40.0 Benign prostatic hyperplasia without lower urinary tract symptoms; E78.5 Hyperlipidemia, unspecified; K76.82 Hepatic encephalopathy; L40.50 Arthropathic psoriasis, unspecified; Z91.041 Radiographic dye allergy status; Z79.899 Other long term (current) drug therapy; Z79.01 Long term (current) use of anticoagulants; Z90.49 Acquired absence of other specified parts of digestive tract; Z98.890 Other specified postprocedural states
CPT/HCPCS: 36415; 47000; 76942; 85025; 85610; 99152; 99153; J2250; J3010; J7030

== ENCOUNTER 2023-10-03 10:51 | Emergency (ER) | payer BC, OTHER ==
[~2023-10-03] VITALS: Ht 185.4 cm; Wt 107.0 kg
[~2023-10-03 10:51] MED LIST changes: -AMOX-580 PO; -ASCO-139 PO; +BACL20TA PO; -CHOL20002 PO; +FENT1PAT10; -FOLI0.4T6 PO; -FURO-150 PO; -LACT1CAP26 PO; -MAGN250T11 PO; -MULT-1085 PO; -TEST75GE TOP; -TURM500C4 PO; -VITA-268 PO; +ZOLP12.543 PO; +ibuprofen
[2023-10-03] MEDS ORDERED: ketorolac trometh inj. 60 MG/2 ML VIAL IM ONE (11:20)
[2023-10-03] MEDS ORDERED: triamcinolone acetonide 40mg/ml inj IJ ONE (11:20)
[2023-10-03] MEDS ORDERED: LIDOcaine 1% 30ml preserv. free vial IJ STA (11:20)
[2023-10-03 11:53] VITALS: BP 161/91; PULSE 60; RESP 18; TEMP 98.2; O2SAT 95
== END 2023-10-03 11:57 | disposition home or self-care (01) ==
LOC: ER 10:51
DX: M25.512 Pain in left shoulder (principal); M54.59 Other low back pain; M54.6 Pain in thoracic spine; E78.00 Pure hypercholesterolemia, unspecified; I11.0 Hypertensive heart disease with heart failure; G89.29 Other chronic pain; Z88.6 Allergy status to analgesic agent; Z88.8 Allergy status to other drugs, medicaments and biological substances; Z79.899 Other long term (current) drug therapy
CPT/HCPCS: 20552; 99284; J1885

== ENCOUNTER 2023-12-23 11:52 | Emergency (ER) | payer BC, OTHER ==
[~2023-12-23] VITALS: Ht 185.4 cm; Wt 103.7 kg
[~2023-12-23 11:52] MED LIST changes: -ZOLP12.543 PO; +ZOLP12.555 PO
[2023-12-23 12:31] LABS: BASOPHILS # (AUTO) 0.1 X10'3 (0-0.2); BASOPHILS % (AUTO) 0.9 % (0-1); EOSINOPHILS # (AUTO) 0.1 X10'3 (0-0.9); EOSINOPHILS % (AUTO) 0.7 % (0-6); HEMATOCRIT 48.4 % (42.0-52.0); HEMOGLOBIN 16.3 g/dl (14.0-17.9); LYMPHOCYTES # (AUTO) 1.6 X10'3 (1.1-4.8); LYMPHOCYTES % (AUTO) 17.7 % (21-51); MEAN CORPUSCULAR HEMOGLOBIN 27.2 PG (27.0-31.0); MEAN CORPUSCULAR HGB CONC 33.6 g/dL (33.0-36.5); MEAN PLATELET VOLUME 7.7 FL (7.4-10.4); MONOCYTES # (AUTO) 0.8 X10'3 (0-0.9); MONOCYTES % (AUTO) 9.1 % (2-12); NEUTROPHILS # (AUTO) 6.6 X10'3 (1.8-7.7); NEUTROPHILS % (AUTO) 71.6 % (42-75); PLATELET COUNT 159 X10'3 (140-440); RED BLOOD COUNT 5.97 X10'6 (4.70-6.10); RED CELL DISTRIBUTION WIDTH 18.1 % (11.5-14.5); WHITE BLOOD COUNT 9.2 X10'3 (4.5-11.0)
[2023-12-23 12:54] LABS: ALANINE AMINOTRANSFERASE 13 U/L (12-78); ALBUMIN 3.5 G/DL (3.4-5.0); ALBUMIN/GLOBULIN RATIO 1.1 (1.1-1.5); ALKALINE PHOSPHATASE 50 IU/L (46-116); ANION GAP 6 (8-16); ASPARTATE AMINO TRANSFERASE 17 U/L (10-37); BILIRUBIN,TOTAL 0.9 MG/DL (0.1-1.0); BLOOD UREA NITROGEN 28 MG/DL (7-18); CALCIUM 8.4 MG/DL (8.5-10.1); CHLORIDE 111 MMOL/L (99-107); GLUCOSE 130 MG/DL (70-104); POTASSIUM 4.2 MMOL/L (3.5-5.1); SODIUM 146 MMOL/L (135-145); TOTAL PROTEIN 6.8 G/DL (6.4-8.2); eCRCL 48 ML/MIN; eGFR 49 ML/MIN
[2023-12-23 13:11] LABS: PRO BRAIN NATRIURETIC PEPTIDE 536 PG/ML (0-450)
[2023-12-23 13:15] VITALS: TEMP 97.6
[2023-12-23 13:25] LABS: APTT 29 SECONDS (22-32); INR 1.1 INR; PROTHROMBIN TIME 11.9 SECONDS (9.0-12.0)
[2023-12-23 14:25] VITALS: BP 137/75; PULSE 70; RESP 20; O2SAT 94
[2023-12-23 14:44] LABS: BILIRUBIN,URINE NEGATIVE (Neg); CLARITY,URINE SLIGHTLY CLOUDY (Clear); COLOR,URINE YELLOW (Yellow); GLUCOSE, URINE NEGATIVE (Neg); KETONES,URINE TRACE mg/dl (Neg); LEUKOCYTE ESTERASE ,URINE NEGATIVE (Neg); NITRITES, URINE NEGATIVE (Neg); OCCULT BLOOD,URINE NEGATIVE (Neg); PROTEIN,URINE 30 mg/dl (Neg); UROBILINOGEN,URINE 0.2 E.U/dL (0.2-1.0)
[2023-12-23 14:51] LABS: UA COLLECTION TYPE NON-SPECIFIED
[2023-12-23 14:52] LABS: MUCUS STRANDS MODERATE /LPF (Neg)
[2023-12-23 14:53] LABS: BACTERIA,URINE NONE SEEN /HPF (Neg); SQUAMOUS EPITHELIAL CELL,UR FEW /LPF (FEW); TRANSITIONAL EPI CELLS,URINE FEW /HPF; WBC,URINE 0-4 /HPF (0-4)
== END 2023-12-23 18:11 | disposition home or self-care (01) ==
LOC: ER 11:53
DX: R09.02 Hypoxemia (principal); I11.0 Hypertensive heart disease with heart failure; E78.00 Pure hypercholesterolemia, unspecified; G89.29 Other chronic pain; M54.9 Dorsalgia, unspecified; Z79.899 Other long term (current) drug therapy
CPT/HCPCS: 36415; 70450; 71045; 80053; 81001; 82140; 83605; 83735; 83880; 84145; 84484; 85025; 85610; 85730; 87040; 87502; 87503; 87811; 93005; 99285

== ENCOUNTER 2024-02-21 04:11 | Emergency (ER) | payer BC ==
[~2024-02-21] VITALS: Ht 185.4 cm; Wt 113.6 kg
[2024-02-21 04:16] VITALS: BP 121/60; PULSE 68; RESP 16; TEMP 97.9; O2SAT 94
== END 2024-02-21 06:47 | disposition left against medical advice (07) ==
LOC: ER 04:11
DX: M54.9 Dorsalgia, unspecified (principal); Z53.21 Procedure and treatment not carried out due to patient leaving prior to being seen by health care provider

== ENCOUNTER 2024-03-14 19:22 | Emergency (ER) | payer BC ==
[~2024-03-14] VITALS: Ht 185.4 cm; Wt 97.7 kg
[2024-03-14 19:37] VITALS: BP 135/92; PULSE 71; RESP 14; TEMP 98.1; O2SAT 95
[2024-03-14] MEDS: LIDOcaine 1% W/epiNEPHrine 1:200,000 10ml vial IJ ONE (20:13)
[2024-03-14] MEDS: LIDOCAINE 1%/EPI 1:100,000 inj. 10 ML multi-dose vial IJ ONE (20:13)
[2024-03-14] MEDS: bacitracin 15gm ointment TP ONE (20:40)
== END 2024-03-14 20:53 | disposition home or self-care (01) ==
LOC: ER 19:23
DX: S61.011A Laceration without foreign body of right thumb without damage to nail, initial encounter (principal); E78.00 Pure hypercholesterolemia, unspecified; I10 Essential (primary) hypertension; M19.90 Unspecified osteoarthritis, unspecified site; Z91.041 Radiographic dye allergy status; Z79.899 Other long term (current) drug therapy; Z79.1 Long term (current) use of non-steroidal anti-inflammatories (NSAID); Z90.49 Acquired absence of other specified parts of digestive tract; W29.3XXA Contact with powered garden and outdoor hand tools and machinery, initial encounter; Y93.89 Activity, other specified; Y92.89 Other specified places as the place of occurrence of the external cause; Y99.8 Other external cause status
CPT/HCPCS: 12001; 99282; A6449

== ENCOUNTER 2024-05-31 09:05 | Emergency (ER) | payer BC ==
[~2024-05-31] VITALS: Ht 185.4 cm; Wt 103.7 kg
[~2024-05-31 09:05] MED LIST changes: -ZOLP12.555 PO; +ZOLP12.570 PO
[2024-05-31 09:12] VITALS: TEMP 98.4
[2024-05-31 10:15] LABS: ALANINE AMINOTRANSFERASE 15 U/L (12-78); ALBUMIN 3.2 G/DL (3.4-5.0); ALBUMIN/GLOBULIN RATIO 0.9 (1.1-1.5); ALKALINE PHOSPHATASE 54 IU/L (46-116); ANION GAP 8 (8-16); ASPARTATE AMINO TRANSFERASE 14 U/L (10-37); BILIRUBIN,TOTAL 1.1 MG/DL (0.1-1.0); BLOOD UREA NITROGEN 22 MG/DL (7-18); BUN/CREATININE RATIO 16.4 (10.0-20.0); CALCIUM 8.8 MG/DL (8.5-10.1); CHLORIDE 104 MMOL/L (99-107); CREATININE 1.34 MG/DL (0.60-1.10); GLUCOSE 117 MG/DL (70-104); POTASSIUM 4.6 MMOL/L (3.5-5.1); SODIUM 141 MMOL/L (135-145); TOTAL CARBON DIOXIDE 28.8 MMOL/L (24-32); TOTAL PROTEIN 6.6 G/DL (6.4-8.2); eCRCL 50 ML/MIN; eGFR 51 ML/MIN
[2024-05-31 10:19] LABS: MAGNESIUM 1.9 MG/DL (1.5-2.4); PRO BRAIN NATRIURETIC PEPTIDE 396 PG/ML (0-450); THYROID STIMULATING HORMONE 1.54 ulU/ml (0.34-4.50)
[2024-05-31 10:23] LABS: BASOPHILS # (AUTO) 0.1 X10'3 (0-0.2); BASOPHILS % (AUTO) 0.9 % (0-1); EOSINOPHILS # (AUTO) 0.1 X10'3 (0-0.9); EOSINOPHILS % (AUTO) 1.5 % (0-6); HEMATOCRIT 48.9 % (42.0-52.0); HEMOGLOBIN 16.1 g/dl (14.0-17.9); LYMPHOCYTES # (AUTO) 1.6 X10'3 (1.1-4.8); LYMPHOCYTES % (AUTO) 20.4 % (21-51); MEAN CORPUSCULAR HEMOGLOBIN 28.9 PG (27.0-31.0); MEAN CORPUSCULAR HGB CONC 32.9 g/dL (33.0-36.5); MEAN CORPUSCULAR VOLUME 87.8 FL (78-98); MONOCYTES # (AUTO) 0.7 X10'3 (0-0.9); MONOCYTES % (AUTO) 8.1 % (2-12); NEUTROPHILS # (AUTO) 5.5 X10'3 (1.8-7.7); NEUTROPHILS % (AUTO) 69.1 % (42-75); PLATELET COUNT 170 X10'3 (140-440); RED BLOOD COUNT 5.57 X10'6 (4.70-6.10); RED CELL DISTRIBUTION WIDTH 16.2 % (11.5-14.5)
[2024-05-31 10:30] LABS: BILIRUBIN,URINE NEGATIVE (Neg); CLARITY,URINE CLEAR (Clear); COLOR,URINE YELLOW (Yellow); GLUCOSE, URINE NEGATIVE (Neg); KETONES,URINE NEGATIVE (Neg); LEUKOCYTE ESTERASE ,URINE NEGATIVE (Neg); NITRITES, URINE NEGATIVE (Neg); OCCULT BLOOD,URINE TRACE-INTACT (Neg); PROTEIN,URINE TRACE mg/dl (Neg); UROBILINOGEN,URINE 0.2 E.U/dL (0.2-1.0)
[2024-05-31 10:47] LABS: UA COLLECTION TYPE CLN CATCH MIDSTREAM
[2024-05-31 10:53] LABS: BACTERIA,URINE NONE SEEN /HPF (Neg); RBC,URINE 0-2 /HPF (0-2); WBC,URINE 0-4 /HPF (0-4)
[2024-05-31 10:54] LABS: AMORPHOUS URATES 1+
[2024-05-31 10:55] LABS: SQUAMOUS EPITHELIAL CELL,UR FEW /LPF (FEW)
[2024-05-31 12:27] VITALS: BP 134/74; PULSE 84; RESP 16; O2SAT 96
== END 2024-05-31 12:30 | disposition home or self-care (01) ==
LOC: ER 09:05
DX: U07.1 COVID-19 (principal); I48.91 Unspecified atrial fibrillation; E78.00 Pure hypercholesterolemia, unspecified; I10 Essential (primary) hypertension; M19.90 Unspecified osteoarthritis, unspecified site; G89.29 Other chronic pain; M54.9 Dorsalgia, unspecified; Z91.041 Radiographic dye allergy status; Z79.899 Other long term (current) drug therapy; Z79.1 Long term (current) use of non-steroidal anti-inflammatories (NSAID); Z90.49 Acquired absence of other specified parts of digestive tract
CPT/HCPCS: 36415; 71045; 74176; 80053; 81001; 83605; 83735; 83880; 84145; 84439; 84443; 84484; 85025; 87040; 87811; 93005; 99285